=== PATIENT | female | born 2005 | race Caucasian/White ===

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

== ENCOUNTER → 2025-03-17 | Outpatient (CLI) | payer MEDICAID, SELFPAY ==
--- OUTSIDE RECORDS SUMMARY | 2025-03-17 08:45 | XMS RPT_ITS | CCD ---
Author Organization [facility] Care Team Providers Care Road Sign Installer Name Role Phone Breanna Rodrigues MD Primary Care Provider [phone] BREANNA RODRIGUES Primary Care Unavailable CAROLINA JORDAN Referring Unavailable Breanna Rodrigues MD Primary Care Provider Bradly Denton Attending Unavailable Damien Patel Primary Care Unavailable Dash Vazquez Attending Unavailable Damien Patel Primary Care Unavailable Damien Patel Primary Care Unavailable Mark Scott Attending Unavailable Cooper RHEOSTAT ASSEMBLER.Hugo WILL Primary Care Provider HUGO ARIAS Primary Care Unavailable HUGO ARIAS Primary Care Unavailable HUGO ARIAS Primary Care Unavailable BRIANDA BLOCK Attending Unavailable BRIANDA BLOCK Referring Unavailable HUGO ARIAS Primary Care Unavailable BRIANDA BLOCK Attending Unavailable HUGO ARIAS Primary Care Unavailable CAROLINA JORDAN Attending Unavailable CAROLINA JORDAN Referring Unavailable ROSALINA BYRD Attending Unavailable BREANNA RODRIGUES Primary Care Unavailable CAROLINA JORDAN Attending Unavailable BREANNA RODRIGUES Primary Care Unavailable BREANNA RODRIGUES Primary Care Unavailable MARK SHEEHAN Attending Unavailable MARK SHEEHAN Referring Unavailable BREANNA RODRIGUES Primary Care Unavailable TYLER APARICIO Admitting Unavailable TYLER APARICIO Attending Unavailable HUGO ARIAS Primary Care Unavailable Medications Current Medications Medication Drug Class(es) Dates Sig (Normalized) Sig (Original) amoxicillin 875 mg / clavulanate 125 mg oral tablet (1 source) Penicillin-class Antibacterial Start: 06-15-2023 take 1 tablet by mouth twice daily Amoxicillin-Pot Clavulanate Active 1 TABLET PO TWICE A DAY June 15, 2023 12:00am 12 hr cetirizine hydrochloride 5 mg / pseudoephedrine hydrochloride 120 mg extended release oral tablet (1 source) alpha-Adrenergic Agonist, Histamine-1 Receptor Antagonist Start: 09-21-2024 End: 09-26-2024 take 1 tablet by mouth twice daily cetirizine-pseud oephedrine (ZYRTEC-D) 5-120 mg per tablet Take 1 tablet by mouth two times a day for 5 days. 10 tablet 09/21/2024 09/26/2024 Active ferrous sulfate 325 mg oral tablet (20 sources) Start: 12-07-2023 take 1 tablet by mouth once daily at breakfast ferrous sulfate 325 mg (65 mg iron) tablet Indications: Iron deficiency Take 1 tablet by mouth daily with breakfast. 30 tablet 2 12/07/2023 Active Start: 09-11-2022 End: 12-08-2022 take 1 tablet by mouth once daily at breakfast ferrous sulfate 325 mg (65 mg iron) tablet Indications: Iron deficiency TAKE 1 TABLET BY MOUTH EVERY DAY WITH BREAKFAST 30 tablet 2 12/08/2022 Active Start: 06-05-2022 End: 09-03-2022 take 1 tablet by mouth once daily at breakfast ferrous sulfate 325 mg (65 mg iron) tablet Indications: Iron deficiency Take 1 tablet by mouth daily with breakfast. 30 tablet 2 06/05/2022 09/03/2022 Active End: 09-11-2022 ferrous sulfate 325 mg (65 m g iron) tablet Take 325 mg by mouth. 0 09/11/2022 Discontinued Comment on above: Take 1 tablet by joshua th daily with breakfast. Take 325 mg by mouth . TAKE 1 TABLET BY JOSHUA TH EVERY DAY WITH BREAKFAST fluconazole 200 mg oral tablet (1 source) Azole Antifungal Start: 02-04-20 End: 02-18-20 take 1 tablet by mouth once daily fluconazole (DIFLUCAN) 200 mg tablet Take 1 tablet by mouth once daily for 14 days. 14 tablet 0 02/04/2024 02/18/2024 Active fluticasone propionate 0.05 mg/actuat metered dose nasal spray (3 sources) Corticosteroid Start: 09-21-20 take 2 spray(s) by mouth once daily fluticasone (FLONASE) 50 mcg/actuation nasal spray Use 2 Sprays in each nostril once daily. Rinse mouth after use. 1 Each 09/21/2024 Active polymyxin b 34962 unt/ml / trimethoprim 1 mg/ml ophthalmic solution (1 source) Dihydrofolate Reductase Inhibitor Antibacterial, Polymyxin-class Antibacterial Start: 11-17-19 End: 11-24-19 take 1 drop(s) into the eye(s) every four hours polymyxin B-trimethoprim (POLYTRIM) 10,000 unit- 1 mg/mL ophthalmic solution Use 1 Drop in the left eye every 4 hours for 7 days. 10 mL 11/17/2024 11/24/2024 Active Completed/Discontinued Medications Medication Drug Class(es) Dates Sig (Normalized) Sig (Original) albuterol 0.83 mg/ml inhalation solution (5 sources) beta2-Adrenergi c Agonist Start: 10-16-2021 End: 06-12-2022 take 2.5 mg by inhalation every four hours as needed albuterol (PROVENTIL) 2.5 mg /3 mL (0.083 %) nebulizer solution Use 3 mL via nebulizer every 4 hours as needed (cough/wheezing/shor tness of breath). 150 mL 2 10/16/2021 06/12/2022 Discontinued Comment on above: Use 3 mL via nebuliz er every 4 hours as needed (cough/wheezing/shortness of breath). cyproheptadine hydrochloride 4 mg oral tablet (6 sources) Start: 06-03-2023 take 1 tablet by mouth once daily at bedtime cyproheptadine (PERIACTIN) 4 mg tablet TAKE 1 TABLET BY MOUTH EVERYDAY AT BEDTIME 30 tablet 3 06/03/2023 Active Start: 01-09-2023 take 1 tablet by joshua th once daily at bedtime cyproheptadine (PERIACTIN) 4 mg tablet Take 1 tablet by mouth daily at bedtime. 30 tablet 3 01/09/2023 Active Comment on above: Take 1 tablet by joshua th daily at bedtime. TAKE 1 TABLET BY JOSHUA TH EVERYDAY AT BEDTIME dicyclomine hydrochloride 10 mg oral capsule (11 sources) Anticholinergic Start: 12-03-19 End: 07-06-20 take 1 capsule by mouth every six hours as needed for pain dicyclomine (BENTYL) 10 mg capsule TAKE 1 CAPSULE BY MOUTH EVERY 6 HOURS NEEDED FOR ABDOMINAL PAIN 120 capsule 1 04/28/2024 07/06/2024 Discontinued Start: 02-18-2023 End: 03-20-2023 take 1 tablet by mouth three times daily dicyclomine (BENTYL) 20 mg tablet Take 1 tablet by mouth three times daily. 90 tablet 0 02/18/2023 03/20/2023 Active Comment on above: Take 1 tablet by joshua th three times daily. Take 1 capsule by mo uth every 6 hours as needed. TAKE 1 CAPSULE BY MO UTH EVERY 6 HOURS NEEDED drospirenone / Ethinyl Estradiol (20 sources) Progestin, Estrogen Start: 2 End: 4 take 1 tablet by mouth once daily, then take 1 tablet by mouth once Drospirenone-Ethinyl Estradiol (TISHA, 28,) 3-0.03 mg per tablet Indications: Dysmenorrhea , Acne vulgaris , Surveillance for control, oral contraceptives Take 1 tablet by mouth once daily. FOR CONTINUOUS USE - TAKE ONLY ACTIVE PILLS FOR 12 WEEKS AND THEN TAKE ONE WEEK OF PLACEBO PILLS. 112 tablet 4 09/09/2022 07/21/2024 Discontinued Start: 09-09-2022 take 1 tablet by joshua th once daily, then take 1 tablet by mouth once Drospirenone-Ethinyl Estradiol (TISHA, 28,) 3-0.03 mg per tablet Indications: Dysmenorrhea , Acne vulgaris , Surveillance for control, oral contraceptives Take 1 tablet by mouth once daily. FOR CONTINUOUS USE - TAKE ONLY ACTIVE PILLS FOR 12 WEEKS AND THEN TAKE ONE WEEK OF PLACEBO PILLS. 112 tablet 4 09/09/2022 Active Comment on above: Take 1 tablet by joshua once daily. FOR CONTINUOUS USE - TAKE ONLY ACTIVE PILLS FOR 12 WEEKS AND THEN TAKE ONE WEEK OF PLACEBO PILLS. esomeprazole 20 mg delayed release oral capsule (12 sources) Proton Pump Inhibitor Start: 3 End: 4 esomeprazole (NEXIUM) 20 mg capsule Take by mouth. 11/12/2022 07/06/2024 Discontinued Comment on above: Take 1 capsule by mo uth once daily. Ethinyl Estradiol / norgestimate (5 sources) Progestin, Estrogen Start: 2 End: 2 take 1 tablet by mouth once daily norgestimate 0.25 mg-ethinyl estradiol 35 mcg (SPRINTEC) 0.25-35 mg-mcg per tablet Indications: Surveillance for control, oral contraceptives Take 1 tablet by mouth once daily. 84 tablet 4 01/03/2022 06/12/2022 Discontinued Start: 01-03-2022 take 1 tablet by joshua th once daily norgestimate 0.25 mg-ethinyl estradiol 35 mcg (SPRINTEC) 0.25-35 mg-mcg per tablet Indications: Surveillance for control, oral contraceptives Take 1 tablet by mouth once daily. 84 tablet 4 01/03/2022 Active Comment on above: Take 1 tablet by joshua once daily. etonogestrel 68 mg drug implant (6 sources) Progestin Start: 07-21-2024 End: 07-21-2024 68 mg, SUBDERMAL, ONCE (UP TO 30 DAYS AMB), 1 dose, On [place] 07/21/24 at 1530, Hazardous Potential Reproductive Risk Drug: Use appropriate PPE. Must be inserted subdermally in the upper arm by a trained healthcare provider. Start: 07-21-2024 End: 07-21-2024 etonogestrel subdermal impla nt 68 mg (NEXPLANON) Start: 07-21-2024 End: 07-21-2027 etonogestrel (NEXPLANON) sub dermal implant 68 mg Indications: Insertion of implantable subdermal contraceptive 1 Each by SUBDERMAL route as directed. 1 Each 07/21/2024 07/21/2027 Active famotidine 20 mg oral tablet (2 sources) Histamine-2 Receptor Antagonist Start: 09-29-2023 End: 12-28-2023 take 1 tablet by mouth twice daily famotidine (PEPCID) 20 mg tablet Take 1 tablet by mouth two times a day. 60 tablet 2 09/29/2023 12/03/2023 Discontinued Comment on above: Take 1 tablet by joshua th two times a day. 12 hr hyoscyamine sulfate 0.375 mg extended release oral tablet (8 sources) Start: 01-01-2023 End: 01-31-2023 take 0.375 mg by mouth every twelve hours as needed hyoscyamine SR (LEVBID) 0.375 mg 12 hr tablet Take 1 tablet by mouth every 12 hours as needed. 60 tablet 2 01/01/2023 Active Comment on above: Take 1 tablet by joshua every 12 hours as needed. rizatriptan 10 mg disintegrating oral tablet (3 sources) Serotonin-1b and Serotonin-1d Receptor Agonist Start: 06-10-2022 End: 06-28-2022 rizatriptan ([employer] SAMPLER) 10 mg disintegrating tablet 1 tablet by mouth today and repeat a second dose in 2 hours. May dose again on 06/11/2022 if needed. 6 tablet 0 06/10/2022 06/28/2022 Discontinued Comment on above: 1 tablet by mouth to day and repeat a second dose in 2 hours. May dose again on 06/11/2022 if needed. Problems Active Problems Problem Classification Problem Date Documented Date Episodic/Chronic Asthma (20 sources) Mild intermittent asthma; Translations: [Mild intermittent asthma, uncomplicated] Onset: 06-15-2018 06-15-2018 Chronic Coagulation and hemorrhagic disorders (1 source) Easy bruising; Translations: [Spontaneous ecchymoses] Episodic Conditions associated with dizziness or vertigo (2 sources) Dizziness; Translations: [Dizziness and giddiness] Episodic Contraceptive and procreative management (1 source) Oral contraception; Translations: [Encounter for surveillance of contraceptive pills] Episodic Headache; including migraine (2 sources) Headache disorder; Translations: [Headache disorder] Episodic Immunizations and screening for infectious disease (4 sources) Patient encounter status; Translations: [Encounter for immunization] Episodic Malaise and fatigue (1 source) Malaise and fatigue; Translations: [Other malaise] Episodic Menstrual disorders (2 sources) Dysmenorrhea; Translations: [Dysmenorrhea, unspecified] Chronic Nonspecific chest pain (1 source) Chest pain; Translations: [Chest pain, unspecified] Episodic Nutritional deficiencies (3 sources) Iron deficiency; Translations: [Iron deficiency] Episodic Other ear and sense organ disorders (1 source) Bilateral earache; Translations: [Otalgia, bilateral] 09-21-2024 Episodic Other ear and sense organ disorders (1 source) Hearing loss of right ear; Translations: [Impacted cerumen, right ear] 10-13-2024 Episodic Other eye disorders (1 source) Disorder of eye; Translations: [Other specified disorders of eye and adnexa] 11-17-2024 Episodic Other nutritional; endocrine; and metabolic disorders (2 sources) Abnormal weight loss; Translations: [Abnormal weight loss] 12-03-2023 Episodic Other screening for suspected conditions (not mental disorders or infectious disease) (2 sources) Ferritin level low; Translations: [Abnormal level of blood mineral] Episodic Other skin disorders (2 sources) Acne vulgaris; Translations: [Acne vulgaris] Episodic Other upper respiratory infections (1 source) Sore throat symptom; Translations: [Acute pharyngitis, unspecified] 09-21-2024 Episodic Residual codes; unclassified (1 source) History of bradycardia; Translations: [Personal history of other specified conditions] Episodic Residual codes; unclassified (1 source) Family history of conduction disorder of the heart; Translations: [Family history of ischemic heart disease and other diseases of the circulatory system] 11-24-2023 Episodic Viral infection (1 source) Viral disease; Translations: [Viral infection, unspecified] 10-13-2024 Episodic Past or Other Problems Problem Classification Problem Date Documented Da te Episodic/Chronic Abdominal pain (20 sources) Abdominal pain; Translations: [Unspecified abdominal pain] Onset: 07-23-2018 11-12-2022 Episodic E Codes: Natural/environment (8 sources) Dog bite - wound; Translations: [Bitten by dog, initial encounter] Onset: 02-04-2024 06-15-2023 Episodic Gastritis and duodenitis (20 sources) Gastritis; Translations: [Gastritis, unspecified, without bleeding] Onset: 01-01-2023 11-12-2022 Episodic Nausea and vomiting (2 sources) Nausea; Translations: [Nausea] Onset: 02-04-2024 02-03-2024 Episodic Other gastrointestinal disorders (7 sources) Constipation; Translations: [Constipation, unspecified] Onset: 07-23-2018 02-04-2024 Episodic Other nutritional; endocrine; and metabolic disorders (2 sources) Abnormal weight loss; Translations: [Abnormal weight loss] Onset: 11-26-2023 Episodic Residual codes; unclassified (1 source) Early satiety; Translations: [Early satiety] Onset: 11-26-2023 Episodic Syncope (14 sources) Syncope; Translations: [Syncope and collapse] Onset: 06-22-2023 Episodic Results Test Name Value Interpretation Reference Range Facility CNOVon 11-17-2024 CNOV Office Visit ([facility] ) JULIAN WHITNEY ([id number]) 5 F Date Time Provider Department 11/17/24 1:15 PM AVANI TATE [facility] During your visit today, we recorded the following information about you: Temperature Pulse Respiration Blood pressure 97.6 degrees 96/minute 18/minute 108/71 Weight 65 kg Avani Tate PA 11/17/2024 1:26 PM Signed This note was created using [employer]. Subjective Julian Whitney is a 19 year old female. HPI 19-year-old female presents for left eye redness x 2 days. Patient states for the past 2 days when she wakes up in the morning, her left eye is red. She states that she had a little bit of crusting in the corner of her eye this morning, but she cleaned that out has not had any drainage from the eye since. She has a little bit of itching occasionally of the eye. No pain in the eye. No vision changes. She does wear glasses, no contacts. No cough, congestion or URI symptoms. Patient was watching her nephew the past 2 days and he has pinkeye. PAST MEDICAL HISTORY Diagnosis Date Anemia, unspecified Dysmenorrhea NEGATIVE MEDICAL HISTORY normal color vision PAST SURGICAL HISTORY Procedure Laterality Date NEXPLANON INSERTION Left 07/21/2024 3 [address]Y [address] AD[address]OIDECTOMY Dr Stiven Fuller ALLERGIES Patient has no known allergies. MEDICATIONS etonogestrel (NEXPLANON) subdermal implant 68 mg 1 Each by SUBDERMAL route as directed. ferrous sulfate 325 mg (65 mg iron) tablet Take 1 tablet by mouth daily with breakfast. polymyxin B-trimethoprim (POLYTRIM) 10,000 unit- 1 mg/mL ophthalmic solution Use 1 Drop in the left eye every 4 hours for 7 days. fluticasone (FLONASE) 50 mcg/actuation nasal spray Use 2 Sprays in each nostril once daily. Rinse mouth after use. (Patient not taking: Reported on 10/13/2024) FAMILY HISTORY Problem Relation Age of Onset No Known Problems Mother Diabetes Father Macular Degen Father Heart Sister WPW Diabetes Maternal Grandmother Heart Maternal Grandfather 54 [place]; arrthymia Hypertension Maternal Grandfather Celiac Disease No Family History Inflammatory Bowel Disease No Family History Thyroid No Family History Social History Tobacco Use Smoking status: Never Passive exposure: Never Smokeless tobacco: Current Tobacco comments: Uses a Vape Vaping Use Vaping status: Never Used Substance Use Topics Alcohol use: Yes Comment: Rare but does drink Drug use: No Review of Systems Constitutional: Negative for chills and fever. HENT: Negative for congestion, ear pain and sore throat. Eyes: Positive for discharge (crusitng in AM), redness and itching. Negative for photophobia, pain and visual disturbance. Respiratory: Negative for cough and shortness of breath. Cardiovascular: Negative for chest pain. Gastrointestinal: Negative for diarrhea and vomiting. Objective BP 108/71 Pulse 96 Temp 36.4 ?C (97.6 ?F) Resp 18 Wt 65 kg (143 lb 4.8 oz) LMP 07/07/2024 (Exact Date) SpO2 100% Physical Exam Vitals and nursing note reviewed. Constitutional: General: She is not in acute distress. Appearance: Normal appearance. She is not toxic-appearing. HENT: Right Ear: Tympanic membrane and ear canal normal. Left Ear: Tympanic membrane and ear canal normal. Nose: Nose normal. Mouth/Throat: Mouth: Mucous membranes are moist. Eyes: General: Vision grossly intact. Right eye: No discharge. Left eye: No discharge. Extraocular Movements: Extraocular movements intact. Conjunctiva/sclera: Conjunctivae normal. Comments: Eye exam normal. No crusting, drainage, swelling. Vision intact. Cardiovascular: Rate and Rhythm: Normal rate and regular rhythm. Pulmonary: Effort: Pulmonary effort is normal. Breath sounds: Normal breath sounds. Skin: General: Skin is warm and dry. Neurological: Mental Status: She is alert. Assessment and Plan ASSESSMENT/PLAN: 1. Eye irritation - ICD9: 379.99, ICD10: H57.89 -Normal exam. Patient reports some redness and crusting in the a.m. Patient states her nephew does have bacterial conjunctivitis and she has been watching him the past 2 days. -Possible early symptoms of conjunctivitis, if drainage/redness worsens, Rx for Polytrim given, may use this as prescribed Diagnosis and treatment plan were discussed and questions were answered to the patient's satisfaction. Pt acknowledged understanding of concepts and follow up plan. Specific signs and symptoms that would indicate the need for higher level of care were discussed in detail warranting prompt ER evaluation. RELL Dangelo Allergies As of Date: 11/17/2024 (No Known Allergies) Date Reviewed: 11/17/2024 Reviewed by: Shanita Hernandez MA - Fully Assessed Reason for Visit: Conjunctivitis [24] Cmt: L eye x2 days Primary Visit Diagnosis:Eye irritation [H57. (more content not included)... Normal [facility] CNOVon 10-13-2024 CNOV Office Visit ([facility] ) JULIAN WHITNEY ([id number]) 5 F Date Time Provider Department 10/13/24 1:30 PM CAMACHO SCOTT [facility] During your visit today, we recorded the following information about you: Temperature Pulse Respiration Blood pressure 97.2 degrees 83/minute 18/minute 110/76 Weight 64.1 kg Camacho Scott APRN.DIGITAL SPECIALIST 10/13/2024 6:24 PM Signed Subjective HPI Nontoxic-appearing 19-year-old female presents to urgent care with chief complaint of upper respiratory tract like infection. Duration of symptoms 4 days. Associated symptoms sore throat, nasal congestion, nasal discharge and nonproductive cough. Patient denies the use of any [id number] medications or home remedies for symptom management. Patient states recent sick contacts with similar signs and symptoms. Patient denies any productive cough, fever, chest pain, shortness of breath, pleuritic pain, rash, abdominal pain, nausea, vomiting or change in bowel or bladder habit. .Patient presents with: Cough: ST, bilateral ear pain, hoarse voice x4 days PAST MEDICAL HISTORY Diagnosis Date - Anemia, unspecified - Dysmenorrhea - NEGATIVE MEDICAL HISTORY normal color vision PAST SURGICAL HISTORY Procedure Laterality Date - NEXPLANON INSERTION Left 07/21/2024 3 year - TONSILLECTOMY AND ADENOIDECTOMY Dr Stiven Fuller ALLERGIES Patient has no known allergies. MEDICATIONS - etonogestrel (NEXPLANON) subdermal implant 68 mg 1 Each by SUBDERMAL route as directed. - ferrous sulfate 325 mg (65 mg iron) tablet Take 1 tablet by mouth daily with breakfast. - fluticasone (FLONASE) 50 mcg/actuation nasal spray Use 2 Sprays in each nostril once daily. Rinse mouth after use. (Patient not taking: Reported on 10/13/2024) FAMILY HISTORY Problem Relation Age of Onset - No Known Problems Mother - Diabetes Father - Macular Degen Father - Heart Sister WPW - Diabetes Maternal Grandmother - Heart Maternal Grandfather 54 [place]; arrthymia - Hypertension Maternal Grandfather - Celiac Disease No Family History - Inflammatory Bowel Disease No Family History - Thyroid No Family History Social History Tobacco Use - Smoking status: Never Passive exposure: Never - Smokeless tobacco: Current - Tobacco comments: Uses a Vape Vaping Use - Vaping status: Never Used Substance Use Topics - Alcohol use: Yes Comment: Rare but does drink - Drug use: No BP 110/76 Pulse 83 Temp 36.2 ?C (97.2 ?F) Resp 18 Wt 64.1 kg (141 lb 5 oz) LMP 07/07/2024 (Exact Date) SpO2 100% Review of Systems Constitutional: Positive for malaise/fatigue. Negative for chills and fever. HENT: Positive for congestion, ear pain and sore throat. Negative for ear discharge and sinus pain. Eyes: Negative for blurred vision, pain, discharge and redness. Respiratory: Positive for cough. Negative for hemoptysis, sputum production, shortness of breath, wheezing and stridor. Cardiovascular: Negative for chest pain. Gastrointestinal: Negative for abdominal pain, diarrhea, nausea and vomiting. Musculoskeletal: Positive for myalgias. Skin: Negative for itching and rash. Neurological: Positive for headaches. Negative for dizziness. Objective Physical Exam Constitutional: General: She is not in acute distress. Appearance: She is not diaphoretic. HENT: Head: Normocephalic. Jaw: No trismus, tenderness, swelling or pain on movement. Right Ear: External ear normal. Left Ear: Tympanic membrane, ear canal and external ear normal. Nose: Congestion present. Mouth/Throat: Mouth: Mucous membranes are moist. Pharynx: Oropharynx is clear. Uvula midline. Posterior oropharyngeal erythema present. No pharyngeal swelling, oropharyngeal exudate or uvula swelling. Eyes: Conjunctiva/sclera: Conjunctivae normal. Pupils: Pupils are equal, round, and reactive to light. Cardiovascular: Rate and Rhythm: Normal rate and regular rhythm. Heart sounds: Normal heart sounds. Pulmonary: Effort: Pulmonary effort is normal. No tachypnea, accessory muscle usage or respiratory distress. Breath sounds: Normal breath sounds. No stridor. No wheezing, rhonchi or rales. Abdominal: General: There is no distension. Palpations: Abdomen is soft. Tenderness: There is no abdominal tenderness. There is no guarding or rebound. Musculoskeletal: Cervical back: Normal range of motion and neck supple. No edema, erythema, rigidity or tenderness. No pain with movement. Normal range of motion. Lymphadenopathy: Cervical: No cervical adenopathy. Skin: General: Skin is warm and dry. Neurological: Mental Status: She is alert and oriented to person, place, and time. Moderate amount of cerumen noted right auditory canal. Post irrigation TM pearly bowling and intact bilaterally. Irrigation performed by MANAGER REVIEW. Patient tolerated well. ASSESSMENT/DOREEN (more content not included)... Normal [facility] STREP A MOLECULAR (POC)on Procedural Control Valid [facility] Strep A (POCT) Negative Negative [facility] CNOVon 09-21-2024 CNOV Office Visit ([facility] ) JULIAN WHITNEY ([id number]) 5 F Date Time Provider Department 09/21/24 1:45 PM EDITH BERGERON [facility] During your visit today, we recorded the following information about you: Temperature Pulse Respiration Blood pressure 97.7 degrees 98/minute 16/minute 102/68 Weight 63.4 kg Edith Bergeron PA-C 09/21/2024 2:09 PM Signed This note was created using [employer]. Subjective Julian Whitney is a 19 year old female. HPI Presents with a chief complaint of ears feeling clogged and a sore throat over the past 2 or 3 days. No fever. Denies cough. Some mild congestion. No diarrhea or vomiting. No decreased hearing. No drainage from her ears. Denies sick contacts. Review of Systems Constitutional: Negative. HENT: Positive for congestion, ear pain and sore throat. Negative for ear discharge, sinus pressure and sinus pain. Respiratory: Negative for cough, shortness of breath and wheezing. All other systems reviewed and are negative. PAST MEDICAL HISTORY Diagnosis Date Anemia, unspecified Dysmenorrhea NEGATIVE MEDICAL HISTORY normal color vision Current Outpatient Medications Medication Sig Dispense Refill etonogestrel (NEXPLANON) subdermal implant 68 mg 1 Each by SUBDERMAL route as directed. 1 Each 0 ferrous sulfate 325 mg (65 mg iron) tablet Take 1 tablet by mouth daily with breakfast. 30 tablet 2 fluticasone (FLONASE) 50 mcg/actuation nasal spray Use 2 Sprays in each nostril once daily. Rinse mouth after use. 1 Each 0 cetirizine-pseudoephe drine (ZYRTEC-D) 5-120 mg per tablet Take 1 tablet by mouth two times a day for 5 days. 10 tablet 0 No current facility-administered medications for this visit. PAST SURGICAL HISTORY Procedure Laterality Date NEXPLANON INSERTION Left 07/21/2024 3 [address] AD[address]Y Dr Stiven Fuller FAMILY HISTORY Problem Relation Age of Onset No Known Problems Mother Diabetes Father Macular Degen Father Heart Sister WPW Diabetes Maternal Grandmother Heart Maternal Grandfather 54 [place]; arrthymia Hypertension Maternal Grandfather Celiac Disease No Family History Inflammatory Bowel Disease No Family History Thyroid No Family History Social History Tobacco Use Smoking status: Never Passive exposure: Never Smokeless tobacco: Current Tobacco comments: Uses a Vape Vaping Use Vaping status: Never Used Substance Use Topics Alcohol use: Yes Comment: Rare but does drink Drug use: No Objective BP 102/68 Pulse 98 Temp 36.5 ?C (97.7 ?F) Resp 16 Wt 63.4 kg (139 lb 12.4 oz) LMP 07/07/2024 (Exact Date) SpO2 99% Physical Exam Vitals reviewed. Constitutional: Appearance: Normal appearance. HENT: Head: Normocephalic and atraumatic. Right Ear: Tympanic membrane, ear canal and external ear normal. Left Ear: Tympanic membrane, ear canal and external ear normal. Nose: Nose normal. Mouth/Throat: Mouth: Mucous membranes are moist. Pharynx: Oropharynx is clear. Cardiovascular: Rate and Rhythm: Normal rate and regular rhythm. Heart sounds: Normal heart sounds. Pulmonary: Effort: Pulmonary effort is normal. Breath sounds: Normal breath sounds. Musculoskeletal: Cervical back: Neck supple. Lymphadenopathy: Cervical: No cervical adenopathy. Skin: General: Skin is warm and dry. Findings: No rash. Neurological: Mental Status: She is alert. Assessment and Plan ASSESSMENT/PLAN: 1. Sore throat - ICD9: 462, ICD10: J02.9 (primary diagnosis) - suspect viral - Group A strep molecular testing negative - Discussed supportive care treatment with fluids, rest and analgesia. - The patient should follow up in 3-5 days if symptoms persist or worsen - STREP A MOLECULAR (POC) 2. Otalgia of both ears - ICD9: 388.70, ICD10: H92.03 Likely eustachian tube dysfunction. Recommend Flonase and Zyrtec-D which was sent as Rx. Follow-up with PCP if not improving. SHEA SalterC Allergies As of Date: 09/21/2024 (No Known Allergies) Date Reviewed: 09/21/2024 Reviewed by: Janette Soliz MA - Fully Assessed Reason for Visit: Sore Throat [200] Cmt: ear pressure x 3 days off and on, sore throat x 1 day Primary Visit Diagnosis:Sore throat [J02.9] Other Visit Diagnosis:Otalgia of both ears [H92.03] Order(s):STREP A MOLECULAR (POC) [0823877] Order #: [id number]. #:[id number] fluticasone (FLONASE) 50 mcg/actuation nasal sprayUse 2 Sprays in each nostril once daily. Rinse mouth after use.Disp: 1 EachRfl: 0 cetirizine-pseudoephe drine (ZYRTEC-D) 5-120 mg per tabletTake 1 tablet by mouth two times a day for 5 days.Disp: 10 tabletRfl: 0 Prescriptions as of 09/21/2024 - fluticasone (FLONASE) 50 mcg/actuation nasal spray Use 2 Sprays in each nostril once daily. Rinse mouth after use. - cetirizine-pseudoephe drine (ZYRTEC-D) 5-120 mg per tablet (more content not included)... Normal [facility] STREP A MOLECULAR (POC)on Procedural Control Valid [facility] Strep A (POCT) Negative Negative [facility] CNOVon 07-21-2024 CNOV Office Visit (OBGYWM ) JULIAN WHITNEY ([id number]) 5 F Date Time Provider Department 07/21/24 2:30 PM BRIANDA BLOCK During your visit today, we recorded the following information about you: Blood pressure Weight Last Period 96/54 61.7 kg 07/07/24 Brianda Block APRN.DIGITAL SPECIALIST 07/21/2024 7:02 PM Signed Julian is a 19 year old patient who presents for Nexplanon insertion. Patient's last menstrual period was 07/07/2024 (exact date). VITALS: BP 110/58 Wt 136 lb (61.7kg) LMP 07/07/2024 Accompanied by grandmother test: negative Nexplanon lot #: [id number] Exp date: 08/11/2026 UNIVERSAL PROTOCOL / SAFETY CHECKLIST Procedure to be Performed: Nexplanon insertion Sign In: A Moment of CARE was completed. Personnel directly involved with the procedure wore the appropriate PPE (Personal Protective Equipment). Patient/Surrogate Stated/Verified: PATIENT VERIFIED(optional for EMERGENT procedures): Patient name, Date of , Relevant allergies, and The intended procedure Time Out Communication: Intended patient and procedure match the source documents. Consent documented and matches the intended procedure. Relevant labs, photos, and/or imaging studies have been reviewed. Correct side/site marked and visible. Medications required for procedure verified. Implant(s) inserted: Correct implant(s) confirmed including size and side. and Expiration date(s) reviewed. Sign Out: SIGN OUT (optional for EMERGENT procedures): No specimen collected. All instruments, equipment, possible retained foreign bodies accounted for. Post-procedure follow-up management communicated and Plan of Care Visit completed when applicable. Brianda Block CNP TECHNIQUE: Patient placed in supine position with left) bent at the elbow and placed over the head. Skin cleansed with betadine. 2mL of 1% lidocaine injected subQ along insertion site. Nexplanon marian inserted under sterile technique. After insertion by the provider, the marian was palpable under the skin by provider. Patient declined to palpate. Steristrips and sterile pressure dressing applied. AANDP: Nexplanon inserted without complications. Patient user card was filled out and given to the patient. The patient was instructed to remove the dressing after 24 hours. Advised to use backup contraception for 7 days. Brianda Block APRN.[place] 07/21/2024 2:25 PM Signed NEXPLANON PATIENT EDUCATION You may remove dressing in 24 hours. Expect some bruising around insertion site. You may take over the counter pain medication (i.e. Tylenol, motrin, advil, etc) if you have discomfort. Call your provider with excessive bruising or pain. Continue to use condoms for STD prevention. You should use backup contraception for 7 days to prevent . Referring Provider: BRIANDA LBOCK [[id number]] Allergies As of Date: 07/21/2024 (No Known Allergies) Date Reviewed: 07/21/2024 Reviewed by: Brianda Block APRN.DIGITAL SPECIALIST - Fully Assessed Reason for Visit: nexplanon insertion [Other] Primary Visit Diagnosis:Insertion of implantable subdermal contraceptive [Z30.017] Order(s):NEXPLANON INSERTION [[id number]] Order #: [id number] [] etonogestrel subdermal implant 68 mg (NEXPLANON)Disp: Rfl: etonogestrel (NEXPLANON) subdermal implant 68 mg1 Each by SUBDERMAL route as directed.Disp: 1 EachRfl: 0 UA DIP,URINE HCG (POC) [[id number]] Order #: [id number]. #:[id number] Prescriptions as of 07/21/2024 - etonogestrel (NEXPLANON) subdermal implant 68 mg 1 Each by SUBDERMAL route as directed. - ferrous sulfate 325 mg (65 mg iron) tablet Take 1 tablet by mouth daily with breakfast. Problem List As Of Date 07/21/2024 Noted Resolved Mild intermittent asthma [J45.20] 06/15/2018 Constipation [K59.00] 07/23/2018 Gastritis [K29.70] 01/01/2023 Dog bite [W54.0XXA] 02/04/2024 Diagnosed: 02/04/2024 Syncope [R55] 06/22/2023 Diagnosed: 02/04/2024 Other instructions from your clinician: NEXPLANON PATIENT EDUCATION You may remove dressing in 24 hours. Expect some bruising around insertion site. You may take over the counter pain medication (i.e. Tylenol, motrin, advil, etc) if you have discomfort. Call your provider with excessive bruising or pain. Continue to use condoms for STD prevention. You should use backup contraception for 7 days to prevent . Prescriptions ordered this encounter Disp Refills Start End ETONOGESTREL 68 MG SUBDERMAL IMPLANT 07/21/2024 07/21/2024 Route: SDRM ETONOGESTREL 68 MG SUBDERMAL IMPLANT 1 Ea* 0 07/21/2024 07/21/2027 Class: In Office Route: SDRM Si Each by SUBDERMAL route as directed. Medications Discontinued During This Encounter Prescriptions - Drospirenone-Ethinyl Estradiol (TISHA, 28,) 3-0.03 mg per tablet (Discontinued) Reported on 07/06/2024 (more content not included)... Normal [facility] UA DIP,URINE HCG (POC)on Beta HCG ( test) Ql (U) Negative Negative [facility] Comment on above: Location:[facility], [address] , [place], [address] Evaporator Supervisor (POCT) Internal QC OK [facility] Location:[facility], [address], [place], [address] [facility] POINT OF CARE [facility] CNOVon 07-06-2024 CNOV Office Visit (OBGYWM ) JOANN WHITNEYGt Amanda ([id number]) 5 F Date Time Provider Department 07/06/24 3:30 PM BRIANDA BLOCK During your visit today, we recorded the following information about you: Blood pressure Weight Last Period 110/56 63.3 kg 06/15/24 Brianda Block APRN.DIGITAL SPECIALIST 07/06/2024 6:15 PM Signed Julian Patel Chelo is a 19 year old female who presents for problem visit painful menstrual cramping without MADELINE. Accompanied by mother. HPI: Stopped continuous MADELINE almost a year ago because she was missing 4-5 pills in a row and then she would remember to take it for a couple of weeks and then miss again. Missed pills resulted in spotting and cramping. Would like to consider a different form of contraception. Was also taking MADELINE for acne. Technical Solutions Engineer prescribed spironolactone but she has not started yet because she wanted to have this appointment first. Is sexually active with one male partner of 1.5 years, condoms for contraception. OB History T0 L0 SAB0 IAB0 Ectopic0 Multiple0 Live Births0 Inspector Conveyor Line History LMP: 06/15/2024 (Exact Date), Having periods Age at Menarche: Age at First : Age at Menopause: Inspector Conveyor Line History Comments: Sexual Activity: Yes; Male Contraception: Condom PAST MEDICAL HISTORY Diagnosis Date Anemia, unspecified Dysmenorrhea NEGATIVE MEDICAL HISTORY normal color vision PAST SURGICAL HISTORY Procedure Laterality Date TONSILLECTOMY AND ADENOIDECTOMY Dr Stiven Fuller FAMILY HISTORY Problem Relation Age of Onset No Known Problems Mother Diabetes Father Macular Degen Father Heart Sister WPW Diabetes Maternal Grandmother Heart Maternal Grandfather 54 [place]; arrthymia Hypertension Maternal Grandfather Celiac Disease No Family History Inflammatory Bowel Disease No Family History Thyroid No Family History Social History Tobacco Use Smoking status: Never Passive exposure: Never Smokeless tobacco: Current Tobacco comments: Uses a Vape Vaping Use Vaping status: Never Used Substance Use Topics Alcohol use: Yes Comment: Rare but does drink Drug use: No Current Outpatient Medications Medication Sig ferrous sulfate 325 mg (65 mg iron) tablet Take 1 tablet by mouth daily with breakfast. dicyclomine (BENTYL) 10 mg capsule TAKE 1 CAPSULE BY MOUTH EVERY 6 HOURS NEEDED FOR ABDOMINAL PAIN (Patient not taking: Reported on 07/06/2024) esomeprazole (NEXIUM) 20 mg capsule Take by mouth. (Patient not taking: Reported on 02/04/2024) Drospirenone-Ethinyl Estradiol (TISHA, 28,) 3-0.03 mg per tablet Take 1 tablet by mouth once daily. FOR CONTINUOUS USE - TAKE ONLY ACTIVE PILLS FOR 12 WEEKS AND THEN TAKE ONE WEEK OF PLACEBO PILLS. (Patient not taking: Reported on 07/06/2024) No current facility-administered medications for this visit. Allergies As of Date: 07/06/2024 (No Known Allergies) Fully Assessed 07/06/2024 REVIEW OF SYSTEMS Allergies and current medication updated:Yes SENSITIVE EXAM: The sensitive examination was discussed with the Patient or Patient's Authorized Photoengraving Etcher. As applicable, any other physician, advance practice provider, medical student, or other health professional student that will be observing or involved in the sensitive examination for educational or training purposes was discussed with the Patient or Authorized Photoengraving Etcher. The Patient or Authorized Photoengraving Etcher has agreed to proceed with the sensitive examination. (Sensitive examination includes inspection and/or palpation of the breasts, pelvis, prostate and anorectal regions). EXAM: BP 110/56 Wt 139 lb 9.6 oz (63.3kg) LMP 06/15/2024 GENERAL: pleasant, female in no apparent distress DERMATOLOGY: Normal with cystic acne CHEST: Normal inspiratory effort NEURO: alert and oriented x3,exam grossly non-focal ASSESSMENT/PLAN: 1. Dysmenorrhea - ICD9: 625.3, ICD10: N94.6 (primary diagnosis) - NEXPLANON INSERTION 2. General counseling and advice for contraceptive management - ICD9: V25.09, ICD10: Z30.09 - discussed contraceptive options with RBA including OCP, NuvaRing, Annovera, patch, Depo Provera, Nexplanon and IUDs. Discussed Nexplanon procedure and side effects including weight gain, unscheduled bleeding. Pt prefers Nexplanon. - NEXPLANON INSERTION 3. Acne vulgaris - ICD9: 706.1, ICD10: L70.0 - she plans to start spironolactone prescribed by pusher runner Follow-up at Nexplanon insertion - assisted in scheduling during next menses. If menses ends prior to appointment, she will abstain from sexual intercourse. Brianda Block, NELSON.DIGITAL SPECIALIST Medical Decision Making: Problems: Moderate: 1+ chronic illnesses with change Risk: Moderate: Drug management and Moderate risk from testing/treatment Medical Decision Making Level: 4 - Moderate Allergies As of Date: 07/06/2024 (No Known Allergies) Date R (more content not included)... Normal [facility] CNOVon 02-04-2024 CNOV Office Visit (PEGAMD ) JULIAN WHITNEY ([id number]) 5 F Date Time Provider Department 02/04/24 11:00 AM CAROLINA JORDAN During your visit today, we recorded the following information about you: Temperature Pulse Respiration Blood pressure 98.9 degrees 84/minute 18/minute 106/68 Weight Height Last Period 54.8 kg 1.702 m 01/14/24 Carolina Jordan MD 02/04/2024 12:39 PM Signed Referring MD: This patient was referred by Breanna Rodrigues MD for evaluation and management of Patient presents with: Post Op Chronic abdominal pain Weight loss Our recommendations will be communicated back (either as a letter or via electronic medical record delivery) to Breanna Rodrigues MD. Medications: Current Outpatient Medications Medication Sig Dispense Refill dicyclomine (BENTYL) 10 mg capsule TAKE 1 CAPSULE BY MOUTH EVERY 6 HOURS NEEDED 60 capsule 1 ferrous sulfate 325 mg (65 mg iron) tablet Take 1 tablet by mouth daily with breakfast. 30 tablet 2 Drospirenone-Ethinyl Estradiol (TISHA, 28,) 3-0.03 mg per tablet Take 1 tablet by mouth once daily. FOR CONTINUOUS USE - TAKE ONLY ACTIVE PILLS FOR 12 WEEKS AND THEN TAKE ONE WEEK OF PLACEBO PILLS. 112 tablet 4 esomeprazole (NEXIUM) 20 mg capsule Take by mouth. (Patient not taking: Reported on 02/04/2024) fluconazole (DIFLUCAN) 200 mg tablet Take 1 tablet by mouth once daily for 14 days. 14 tablet 0 No current facility-administered medications for this visit. HPI: Julian Whitney is a delightful 18 year old female being seen today in follow up on February 04, 2024 (last clinic visit was December 02, 2023) secondary to issues with chronic abdominal pain, unintentional weight loss, early satiety. The patient presents to follow up with mother who provides the history today. Background history: Updated/reviewed Julian is a healthy young woman with past medical history significant for past acetaminophen overdose but otherwise, no other underlying medical issues. Prior to her initial clinic visits, she had been assessed in the emergency room October 2022 due to escalating sharp cramping abdominal pain without radiation worse in the mornings and associated with nausea. She denied any other significant upper GI tract symptoms and was also having normal stools. There were no prior infectious prodrome preceding this, new medication use, or other new stressors/dietary changes. In addition to her gastrointestinal symptoms, she endorsed ongoing intermittent dizziness feeling hot with heart palpitations but not completely panic attacks as per her report. Laboratory evaluation by her general surgeon was quite comprehensive and within normal limits including a complete blood count, comprehensive metabolic panel, and serum inflammatory markers. We first recommended Periactin, and completion of her laboratory evaluation with fecal inflammatory markers. Summary of abdominal pain survey: Responses from December 2022 are in italics with current/confirmed unchanged answers in bold print from September 2023 Location of pain:Periumbilical Initial start of pain (date): October 2022 Quality of pain: Tight and tense --> unchanged Duration of episodes: Longer in the mornings hours; more intermittent lasting minutes; no nocturnal awakening --> still in the mornings > afternoons without nocturnal awakening (episodes in the afternoons are intermittent) Frequency: At least 3-4 times daily --> multiple times daily Exacerbating factors: Continues to endorse that no specific foods aggravate symptoms although spicy foods may have aggravated things in the past Ameliorating factors: Lying down; Nexium has not helped. Periactin also has not made an impact although she was only on it for a couple of weeks Nocturnal awakening:No Tenesmus: ? Yes --> no Blood: No Mucus: No Upper GI tract symptoms: Acid brash: No Heartburn: No Dysphagia: No Associated nausea: 2-3 weeks with NBNB emesis not necessarily associated immediately with eating; no recurrent vomiting but continues to have nausea intermittently and early satiety over the past 5 to 6 months Epigastric pain: None Given ongoing weight loss of 10 pounds between December to September of 2023, we reordered calprotectin and Hemoccult which were within normal limits. Therefore, we made the decision to proceed with upper endoscopic evaluation given her ongoing weight loss and reports of possible early satiety but held on colonoscopy given the fact that her calprotectin and Hemoccult were normal, and she was not having any issues with significant diarrhea. She underwent endoscopic evaluation with biopsies in November 2023; there was no significant mucosal inflammation or signs of since her last clinic visit, she underwent upper endoscopy with biopsies. Endoscopically, there is no significant evidence of muco (more content not included)... Normal [facility] CNOVon 12-03-2023 CNOV Office Visit (PEGAMD ) JULIAN WHITNEY ([id number]) 5 F Date Time Provider Department 12/03/23 10:00 AM CAROLINA JORDAN During your visit today, we recorded the following information about you: Temperature Pulse Respiration Blood pressure 98.8 degrees 72/minute 19/minute 104/55 Weight Height Last Period 55.4 kg 1.695 m 11/19/23 Carolina Jordan MD 12/03/2023 9:50 PM Signed Referring MD: This patient was referred by Breanna Rodrigues MD for evaluation and management of Patient presents with: Procedure Follow Up Chronic abdominal pain Weight loss Our recommendations will be communicated back (either as a letter or via electronic medical record delivery) to Breanna Rodrigues MD. Medications: Current Outpatient Medications Medication Sig Dispense Refill dicyclomine (BENTYL) 10 mg capsule Take 1 capsule by mouth every 6 hours as needed. 60 capsule 1 ferrous sulfate 325 mg (65 mg iron) tablet TAKE 1 TABLET BY MOUTH EVERY DAY WITH BREAKFAST 30 tablet 2 Drospirenone-Ethinyl Estradiol (TISHA, 28,) 3-0.03 mg per tablet Take 1 tablet by mouth once daily. FOR CONTINUOUS USE - TAKE ONLY ACTIVE PILLS FOR 12 WEEKS AND THEN TAKE ONE WEEK OF PLACEBO PILLS. 112 tablet 4 No current facility-administered medications for this visit. HPI: Julian Whitney is a mildly 18 year old female being seen today in follow up on December 02, 2023 (last clinic visit was September 29, 2023 after initial new consultation in pediatric GI clinic December 2022) secondary to issues with chronic abdominal pain, unintentional weight loss, early satiety, and follow-up of previous endoscopic evaluation. The patient presents to follow up with mother who provides the history today. Background history: Updated/reviewed She is a previously healthy young woman with past medical history significant for past acetaminophen overdose but otherwise, no other underlying medical issues. Prior to her initial clinic visits, she had been assessed in the emergency room October 2022 due to escalating sharp cramping abdominal pain without radiation worse in the mornings and associated with nausea. She denied any other significant upper GI tract symptoms and was also having normal stools. There were no prior infectious prodrome preceding this, new medication use, or other new stressors/dietary changes. In addition to her gastrointestinal symptoms, she endorsed ongoing intermittent dizziness feeling hot with heart palpitations but not completely panic attacks as per her report. Laboratory evaluation by her general surgeon was quite comprehensive and within normal limits including a complete blood count, comprehensive metabolic panel, and serum inflammatory markers. We first recommended Periactin, and completion of her laboratory evaluation with fecal inflammatory markers. I subsequently saw her back in clinic after her original December 2022 visit in September 2023. At that time, they noted that she was having issues with sporadic stooling, only rare diarrhea, but ongoing unchanged abdominal pain. Summary of abdominal pain survey: Responses from December 2022 are in italics with current/confirmed unchanged answers in bold print Location of pain:Periumbilical Initial start of pain (date): October 2022 Quality of pain: Tight and tense --> unchanged Duration of episodes: Longer in the mornings hours; more intermittent lasting minutes; no nocturnal awakening --> still in the mornings > afternoons without nocturnal awakening (episodes in the afternoons are intermittent) Frequency: At least 3-4 times daily --> multiple times daily Exacerbating factors: Continues to endorse that no specific foods aggravate symptoms although spicy foods may have aggravated things in the past Ameliorating factors: Lying down; Nexium has not helped. Periactin also has not made an impact although she was only on it for a couple of weeks Nocturnal awakening:No Tenesmus: ? Yes --> no Blood: No Mucus: No Upper GI tract symptoms: Acid brash: No Heartburn: No Dysphagia: No Associated nausea: 2-3 weeks with NBNB emesis not necessarily associated immediately with eating; no recurrent vomiting but continues to have nausea intermittently and early satiety over the past 5 to 6 months Epigastric pain: None Given ongoing weight loss of 10 pounds between December to September of 2023, we reordered calprotectin and Hemoccult which were within normal limits. Therefore, we made the decision to proceed with upper endoscopic evaluation given her ongoing weight loss and reports of possible early satiety but held on colonoscopy given the fact that her calprotectin and Hemoccult were normal, and she was not having any issues with significant diarrhea. Interval history Since her last clinic visit, she underwent upper endoscopy with biopsies. Endoscopically, th (more content not included)... [facility] HNO ID: [id number] Author: ABIMBOLA DRUMMOND CCLS Service: [facility] Author Type: Search Specialist Type: Allied Health Filed: 11/26/2023 12:47 Note Text: [facility] NOTE SERVICE DATE: 11/26/2023 SERVICE TIME: 1215 Time Spent: 16-30 Minutes Specialty: Gastroenterology (GI) Referral Source: Self Clinical Intervention Intervention: Introduction of Services, Procedural Preparation/Education , Procedural Support Procedural Support: IV Placement/Removal Procedural Preparation/Education : Anesthesia Induction, IV Placement/Removal Present During Intervention: Mother Involvement During Intervention: Parent/Caregiver Present - Engaged Goals: To Enhance Understanding of Procedure/Diagnosis, To Promote Positive Coping, To Provide an Alternative Focus for Procedure, To Reduce Fears and Anxiety Assessment Patient Coping: Anxious, Attentive, Engaged Receptivity to Child Life Support: Receptive Level of Anxiety and Distress : Somewhat Anxious Health Care Factors: Some Previous Hospitalizations Coping Measures Coping Tools: Distraction, Verbal Reassurance, Pain Ease/Freeze [place] Objective Observations: Pt identified anxiety related to procedure and expressed worry that she would be awake during procedure based on her google search. Certified Search Specialist (CCLS) spent much time walking pt throughout process and reassuring pt that she would be under anesthesia for her scopes and not feel or experience anything during procedure. Pt shared other previous medical experiences for her to be [place] which she was awake for and per mother, cried throughout entire procedure. Pt reassured once learning she would be under anesthesia and denied any anxiety related to IV placement. Pt coped positively during IV placement. Pt asked appropriate questions and while she remained anxious, pt identified a decrease in anxiety once receiving preparation. Mother identified pt to be someone who passes out often and pt identified anxiety to be a trigger for her. CCLS and RN encouraged pt to communicate her anxiety throughout pre-op and post-op to assure that when possible passing out could be prevented. Plan Plan for Follow Up: Child Life Will Provide Support as Needed SIGNATURE: CT Dietz PATIENT NAME: Julian Whitney DATE: November 26, 2023 TIME: 12:43 PM PAGER/CONTACT #: [phone] [facility] ANES POSTPROC EVALon 024 ANES POSTPROC EVAL HNO ID: [id number] Author: BERNARDO LYONS MD Service: ? Author Type: Anesthesiologist Type: Anesthesia Postprocedure Evaluation Filed: 11/26/2023 15:17 Note Text: POST ANESTHESIA EVALUATION NOTE : 2005 Procedure Summary Date: 11/26/23 Room / Location: PEDS PROC [id number] / PEDS PROC R Anesthesia Start: 1402 Anesthesia Stop: 1430 Procedure: EGD WITH BIOPSY (Abdomen) Diagnosis: Generalized abdominal pain Nausea Weight loss, unintentional Early satiety (Generalized abdominal pain [R10.84]) (Nausea [R11.0]) (Weight loss, unintentional [R63.4]) (Early satiety [R68.81]) Surgeons: Tyler Aparicio MD Responsible Provider: Bernardo Lyons MD Anesthesia Type: general ASA Status: 1 Anesthesia Type: general Airway Type: supplemental O2 Last Vitals Vitals Value Taken Time BP 104/67 11/26/23 1510 Temp 36.4 ?C (97.5 ?F) 11/26/23 1430 Pulse 53 11/26/23 1510 Resp 20 11/26/23 1440 SpO2 100 % 11/26/23 1510 Vitals shown include unfiled device data. Post Anesthesia Patient Status Patient Evaluation: PACU. PACU/ICU Patient Condition: stable. Anticipated Disposition: phase 2 then home. Neurological Status: aware and responsive. Pulmonary Status: breathing comfortably on room air Airway Control: returned to baseline unsupported. Cardiovascular Status: stable. Pain Management: clinically adequate Postoperative Hydration: acceptable. Intraoperative Events: no significant anesthesia events Post Operative Nausea/Vomiting Status: no significant post operative nausea or vomiting Recommendation: continue current plan of care. Anesthesia Observations No notable events were associated with this procedure. Documented by Gina Peña SRNA 11/26/2023 2:33 PM EST SIGNATURE: Bernardo Lyons MD PATIENT NAME: Julian Whitney DATE: November 26, 2023 TIME: 3:16 PM CSN: [id number] Normal [facility] ANES PRE-OPon 11-26-2023 ANES PRE-OP HNO ID: [id number] Author: BERNARDO LYONS MD Service: ? Author Type: Anesthesiologist Type: Anesthesia Preprocedure Evaluation Filed: 11/26/2023 11:53 Note Text: PEDIATRIC ANESTHESIOLOGY DAY OF SURGERY NOTE : 2005 Procedure(s) (LRB): EGD WITH BIOPSY (N/A) Surgeon(s): Tyler Aparicio MD Estimated body mass index is 19.11 kg/m? as calculated from the following: Height as of 11/24/23: 169.5 cm (5' 6.73). Weight as of 11/24/23: 54.9 kg (121 lb 0.5 oz). Most recent hematocrit and potassium results: Hematocrit 39.0 09/29/2023 Potassium 4.3 09/29/2023 Relevant Problems ANESTHESIA (-) History of anesthesia complications PULMONARY (+) Mild intermittent asthma (-) Recent URI Gastrointestinal (+) Abdominal pain (+) Gastritis Physical Exam Airway: Mallampati scale: I. TM distance is normal. Mouth opening is normal. She has normal appearing naso-oral features, no dysmorphic features and no loose teeth. Head: Normocephalic. Mouth/Throat: Dentition is normal. Neck: Normal range of motion. Cardiovascular: Normal rate, regular rhythm, S1 normal and S2 normal. Pulmonary/Chest: Effort normal. Breath sounds clear to auscultation. Musculoskeletal: General: Normal range of motion. Cervical back: Normal range of motion. Neurological: She is alert. She has normal strength. Vitals reviewed. Anesthesia Plan ASA 1 general intravenous induction Premedication planned: none Anesthetic plan and risks discussed with legal guardian. Use of blood products discussed with legal guardian. Patient / Surrogate agrees to blood products: consented Plan discussed with SOLAR SALES ADVISOR and SRNA. No vitals data found for the desired time range. I have interviewed and examined the patient. I have reviewed the medical record and/or the pre-anesthesia evaluation, pertinent labs, and test results. This contains updated information obtained within 48 hours of Surgery/Procedure. SIGNATURE: Bernardo Lyons MD PATIENT NAME: Julian Whitney DATE: November 26, 2023 TIME: 11:49 AM CSN: [id number] Normal [facility] CNCOon 11-26-2023 CNCO Letter Text Normal [facility] Fungus Spec Culton 4 Fungus identified Cx Nom (Unsp spec) ORGANISM ID: 1 Rare Lynn albicans Normal [facility] Comment on above: Performed By: #### 5 80-1 ####[facility] LABCLIA [id number] [place] [address] [place] HISTORY PHYSICALon 4 HISTORY PHYSICAL HNO ID: [id number] Author: TYLER APARICIO MD Service: Pediatric Gastroenterology Author Type: Physician Type: H&P Filed: 11/26/2023 17:24 Note Text: Carole Hernandez MD PEDIATRIC GASTROENTEROLOGY, HEPATOLOGY, AND NUTRITION Julian is being seen for pre-operative HANDP prior to endoscopy. My final recommendations will be communicated back to PCP by way of the shared medical record Prior Clinic Visit: 09/29/23 Age: [age] year old Medications: No current facility-administered medications on file prior to encounter. Current Outpatient Medications on File Prior to Encounter Medication Sig famotidine (PEPCID) 20 mg tablet Take 1 tablet by mouth two times a day. ferrous sulfate 325 mg (65 mg iron) tablet TAKE 1 TABLET BY MOUTH EVERY DAY WITH BREAKFAST Drospirenone-Ethinyl Estradiol (TISHA, 28,) 3-0.03 mg per tablet Take 1 tablet by mouth once daily. FOR CONTINUOUS USE - TAKE ONLY ACTIVE PILLS FOR 12 WEEKS AND THEN TAKE ONE WEEK OF PLACEBO PILLS. Background History: Julian Whitney is a 18 year old female being seen today for pre-operative HANDP. Interval History: Patient is here accompanied by mother who helps provide the history. Since the last visit, Lexie reported similar abdominal pain to what was described as mostly in the morning but can happen anytime of the day, lasting an hour at a time, resolves spontaneously and sometimes take Ibuprofen for the pain, but doesn't relieve it. Located mostly in the periumbilical region and sometimes lower quadrants. Never radiates anywhere else. No nausea or vomtiting. Passes 1-2 BM daily that are soft and non-bloody. She missed days of school which eventually switched to online school by the end of October. Patient denies cough, rhinorrhea, fevers, or recent illness. Patient remains NPO per guidelines without any issues. No prior issues with anesthesia. Family has no questions at this time. Review Of Systems: All review of system were reviewed and are negative, except as noted above. Past medical, family history, and surgical history: reviewed with no new additions noted. PAST MEDICAL HISTORY Diagnosis Date Anemia, unspecified NEGATIVE MEDICAL HISTORY normal color vision PAST SURGICAL HISTORY Procedure Laterality Date TONSILLECTOMY AND ADENOIDECTOMY Dr Stiven Fuller FAMILY HISTORY Problem Relation Age of Onset No Known Problems Mother Diabetes Father Macular Degen Father Heart Sister WPW Diabetes Maternal Grandmother Heart Maternal Grandfather 54 MT; arrthymia Hypertension Maternal Grandfather Celiac Disease No Family History Inflammatory Bowel Disease No Family History Thyroid No Family History Physical Exam: BP 129/83 Pulse 71 Temp 36.8 ?C (98.2 ?F) (Temporal) Resp 20 Wt 55.2 kg (121 lb 11.1 oz) LMP 11/19/2023 (Approximate) SpO2 100% BMI 19.21 kg/m? General Condition: Well appearing Skin: No jaundice Head/Neck: Atraumatic, normocephalic Eyes: Clear sclera, no icterus Oropharynx: MMM Lungs/Thorax: Lungs clear to auscultation bilaterally, without coarse breath sounds, wheezing, nasal flaring, or retractions Cardiovascular: RRR, S1 and S2 present, no murmurs Abdomen: Soft, non distended, bowel sounds present, no palpable masses, no hepatomegaly or splenomegaly Musculoskeletal:No focal defect or deformity Neurologic: Normal tone and activity Labs/Radiology: Reviewed. Impression: Julian Whitney is a 18 year old female being seen today pre-operative HANDP prior to endoscopy. The patient has had not recent illness and based on physical exam, the patient is cleared to proceed with the scheduled procedure today. Consent is in the chart. Plan: -Proceed with endoscopy -Follow up as recommended after procedure Carole Hernandez MD Pediatric Gastroenterology Fellow, PGY-5 P: [id number]/ [id number] 11/26/23 11:36 AM CC: Breanna Rodrigues MD @[facility]@ [phone] Reviewed and agree. Tyler Aparicio MD [facility] NURSING PROGon 11-26-2023 NURSING PROG HNO ID: [id number] Author: CHANTEL LEUNG RN Service: Nursing Author Type: Registered Nurse Type: Nursing Progress Note Filed: 11/26/2023 12:24 Note Text: Patient arrived to R1 Procedure area accompanied by Mom. Verified patient was maintained NPO per anesthesia guidelines. Pt denies any recent illness. Patient/family oriented to unit/room, instructed on use of call button. Parking provided x1. Patient/family verbalize understanding, questions and concerns addressed at this time. Chantel Leung RN Normal [facility] Pediatric Upper GI Endoscopy on 11-26-2023 Pediatric Upper GI Endoscopy Pediatrics Gastrointestinal Endoscopy Patient Name: Julian Whitney Procedure Date: 11/26/2023 1:41 PM Date of : 2005 Admit Type: Outpatient Age: 18 Gender: Female Note Status: Finalized Procedure: Pediatric Upper GI Endoscopy Indications: Abdominal pain Providers: Carole Knowles MD (Fellow) Patient Profile: This is an 18 year old female. , Refer to note in patient chart for documentation of history and physical. Referring Physician: Medicines: General Anesthesia without ET Tube Complications: No immediate complications. Estimated blood loss: Minimal. Requesting Provider: Procedure: After obtaining informed consent, the endoscope was passed under direct vision. Throughout the procedure, the patient's blood pressure, pulse, and oxygen saturations were monitored continuously. The Endoscope was introduced through the mouth, and advanced to the second part of duodenum. The upper GI endoscopy was accomplished without difficulty. The patient tolerated the procedure well. Findings: The Z-line was regular and was found 38 cm from the incisors. Patchy mild mucosal changes characterized by white exudates were found in the upper third of the esophagus, in the middle third of the esophagus and in the lower third of the esophagus. Biopsies were taken with a cold forceps for histology. Multiple biopsies were obtained in the lower third of the esophagus with cold forceps for histology. Cells for cytology were obtained by brushing. The entire examined stomach was normal. Biopsies were taken with a cold forceps for histology. Multiple biopsies were obtained on the greater curvature of the gastric body and in the gastric antrum with cold forceps for histology. The examined duodenum was normal. Biopsies were taken with a cold forceps for histology. Multiple biopsies were obtained in the duodenal bulb and in the second portion of the duodenum with cold forceps for histology. Impression: - Z-line regular, 38 cm from the incisors. - White exudates mucosa in the esophagus. Biopsied. Cells for cytology obtained. - Normal stomach. Biopsied. - Normal examined duodenum. Biopsied. - Multiple biopsies were obtained in the lower third of the esophagus. - Multiple biopsies were obtained on the greater curvature of the gastric body and in the gastric antrum. - Multiple biopsies were obtained in the duodenal bulb and in the second portion of the duodenum. Recommendation: - The patient will be observed post-procedure, until all discharge criteria are met. - Discharge the patient to home with parent(s). - Return to GI clinic as previously scheduled. Attending Participation: Attending was present for the entire procedure, including the insertion and removal of the endoscope, and assisted the fellow with performance of the procedure. MD Tyler Claudio, 11/26/2023 2:34:42 PM This report has been signed electronically by Tyler Aparicio Number of Addenda: 0 Note Initiated On: 11/26/2023 1:41 PM Procedure Start: 2:09:55 PM Procedure End: 2:24:21 PM Normal [facility] SURGICAL PATHOLOGYon 024 CASE REPORT Normal [facility] Comment on above: Order Comment: Speci karla Type: TISSUE SPECIMENOrdering Facility: [facility] Address: [address] [place] [address] Result Comment: Surg ical Pathology Report Case: [id number] Authorizing Provider: Tyler Aparicio MD Collected: 11/26/2023 02:12 PM Ordering Location: [facility] Received: 11/26/2023 04:28 PM Pathologist: Ren Diaz MD Specimens: A) - DUODENUM BIOPSY B) - DUODENUM BIOPSY, duodenal bulb C) - ANTRUM (STOMACH) BIOPSY D) - STOMACH BIOPSY, gastric body E) - ESOPHAGUS LOWER BIOPSY, distal esophagus Performed By: #### S ####[facility] [facility]ATORYCLIA [id number] [address] OF [facility] LABCLIA [id number] [address] CLINICAL HISTORY Normal [facility] Comment on above: Order Comment: Felipe acosta Type: TISSUE SPECIMENOrdering Facility: [facility] Address: [address] [place] [address] Result Comment: Pre- op diagnosis: Generalized abdominal pain [R10.84] Nausea [R11.0] Weight loss, unintentional [R63.4] Early satiety [R68.81] Performed By: #### S ####[facility] LABORATORYCLIA [id number] [address] LABCLIA [id number] [address] FINAL DIAGNOSIS Normal [facility] Comment on above: Order Comment: Speci men Type: TISSUE SPECIMENOrdering Facility: [facility] Address: [address] [place] [address] Result Comment: A. D uodenum, biopsy: - Small bowel mucosa with no significant pathologic changes. - No evidence of celiac sprue. B. Duodenum, bulb, biopsy: - Duodenal mucosa with no significant pathologic changes. - No evidence of celiac sprue. C. Stomach, biopsy: - Antral mucosa with no significant pathologic changes. - No evidence of H. pylori. D. Stomach, body, biopsy: - Fundic mucosa with no significant pathologic changes. - No evidence of H. pylori. E. Lower esophagus, biopsy: - Squamous mucosa with no significant pathologic changes. - No evidence of eosinophilic esophagitis. Performed By: #### S ####[facility] LABORATORYCLIA [id number] [address] LABCLIA [id number] [address] FINAL PERFORMING LAB Normal [facility] Comment on above: Order Comment: Speci men Type: TISSUE SPECIMENOrdering Facility: [facility] Address: [address] [place] [address] Result Comment: Diag nostic interpretation performed at [facility], [address] [id number] CLIA# [id number] Box Closing Machine Operator: Opal Alcocer M.D. Performed By: #### S ####[facility] LABORATORYIA [id number] [address] [id number] [address] [place] GROSS DESCRIPTION Normal [facility] Comment on above: Order Comment: Speci men Type: TISSUE SPECIMENOrdering Facility: [facility] Address: [address] [place] [address] Result Comment: A. D UODENUM BIOPSY Received in formalin is one piece of chavira, soft tissue measuring 0.4 x 0.2 x 0.2 cm. Totally submitted in one cassette. B. DUODENUM BIOPSY Received in formalin is one piece of chavira-red, soft tissue measuring 0.3 x 0.3 x 0.2 cm. Totally submitted in one cassette. C. ANTRUM (STOMACH) BIOPSY Received in formalin is one piece of chavira, soft tissue measuring 0.4 x 0.3 x 0.2 cm. Totally submitted in one cassette. D. STOMACH BIOPSY Received in formalin are two pieces of chavira-red, soft tissue aggregating to 0.4 x 0.3 x 0.2 cm. Totally submitted in one cassette. E. ESOPHAGUS LOWER BIOPSY Received in formalin are two pieces of chavira-white, soft tissue aggregating to 0.5 x 0.2 x 0.2 cm. Totally submitted in one cassette. Gross examination performed at [facility], [address] [place] [address] November 26, 2023 9:21 PM Performed By: #### S ####[facility] LABORATORYIA [id number] [address] LABIA [id number] [address] OF [place] Jaky 11-24-2023 CNOV Office Visit (CHPDMN ) JULIAN WHITNEY ([id number]) 5 F Date Time Provider Department 11/24/23 10:00 AM MARK SHEEHAN CHPDMN During your visit today, we recorded the following information about you: Temperature Pulse Respiration Blood pressure 98.2 degrees 83/minute 20/minute 130/80 Weight Height Last Period 54.9 kg 1.695 m 11/15/23 Mark Sheehan MD 11/24/2023 12:47 PM Signed Pediatric and Congenital Heart Rhythm / Electrophysiology Clinic Patient Name: Julian Whitney Date of : 2005 Date of Visit: 11/24/2023 Reason for Consultation: Syncope, family history of WPW The history is provided by Julian and her mother. History of Present Illness: Julian Whitney is a 18 year old female seen by Pediatric Electrophysiology at the [facility] on November 24, 2023 in consultation for syncope. Julian Whitney's cardiovascular history is well summarized from our last clinic visit on 06/28/2022 as follows: Julian experienced blurred vision then dark vision followed by heart racing just prior to her event. She was unconscious for about 10 seconds and woke up with a headache. She states that for weeks prior she experienced similar pre-syncopal symptoms without loss of consciousness. Julian was seen by Dr. Janette Pinto at that time and an ECG was performed which showed sinus bradycardia. She was referred to our service for further evaluation. She was placed on an iron supplement though is not anemic. She has not had syncope prior or since. Of note, Julian was seen by our service on 07/26/2018 for musculoskeletal chest pain. Her ECG was normal at that time and we follow her twin sister (Zan) for Lhsxq-Mjqhxhyle-Ebzbz syndrome. Zan had a successful ablation by our service and is doing well. Julian was evaluated again in our office in June 2022 for syncope. Her evaluation was unremarkable and reassuring and we felt that her syncopal event was related to vagal stimulation. Cardiac Review of Systems: Julian complains of syncope. She has had several events since our last visit. In October 2022, she was running outside and felt out of breath. She stopped running and felt dizzy. Shortly thereafter she passed out. She woke quickly thereafter and felt a bit woozy. She had an event at a concert in March 2023. She started to feel unwell and walked over the a fence to hold her up for support. She slowly slumped to the ground. She was picked up and while being supported, passed out again. She received IV fluids in a medical tent and improved after 15 minutes. Her next event occurred in August 2023. She was at a tanning salon and felt unwell while filling out paper work. She sat down on the ground and passed out. The staff at the salon laid her down and she felt better after her feet were put up. Of note, she donated blood that day. Unless otherwise noted, Julian is asymptomatic from a cardiovascular standpoint including no palpitations, chest pain, dyspnea, cyanosis, edema or activity intolerance. GI referred her back to our service for clearance prior to a recommended endoscope. Review of Systems: +GI - discomfort in the AM +10 lb weight loss in the last year The remainder of the review of systems is negative. Past Medical History: PAST MEDICAL HISTORY Diagnosis Date Anemia, unspecified NEGATIVE MEDICAL HISTORY normal color vision Social History: Julian lives with her twin sister, mother and father. She has an older sister has moved out of the house and is . She also has two older brothers that live out of the house. Julian is currently in 12th grade. She will be graduating in 4 months. 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 Cardiac Family History: FAMILY HISTORY Problem Relation Age of Onset No Known Problems Mother Diabetes Father Macular Degen Father Heart Sister WPW Diabetes Maternal Grandmother Heart Maternal Grandfather 54 MT; arrthymia Hypertension Maternal Grandfather Celiac Disease No Family History Inflammatory Bowel Disease No Family History Thyroid No Family History Sister (Zan) - WPW s/p ablation of a right lateral accessory pathway No additional history of syncope, seizures, arrhythmias, drownings, single car accidents, sudden cardiac , early pacemaker or ICD implantation or congenital deafness. Medications: famotidine (PEPCID) 20 mg tablet Take 1 tablet by mouth two times a day. ferrous sulfate 325 mg (65 mg iron) tablet TAKE 1 TABLET BY MOUTH EVERY DAY WITH BREAKFAST Drospirenone-Ethinyl Estradiol (TISHA, 28,) 3-0.03 mg per tablet Take 1 tablet by mouth once daily. FOR CONTINUOUS USE - TAKE ONLY ACTIVE PILLS FOR 12 WEEKS AND THEN TAKE ONE WEEK OF PLACEBO PILLS. Allergies: ALLERGIES No Known Allergies Physical Examina (more content not included)... Normal [facility] [id number] 11-24-2023 ECG01 Ventricular Rate : 5 6 BPM Atrial Rate : 56 BPM P-R Interval : 84 ms QRS Duration : 90 ms Q-T Interval : 440 ms QTC Calculation(Bazett) : 424 ms Calculated P [place] : 53 degrees Calculated R [place] : 80 degrees Calculated T [place] : 49 degrees Sinus bradycardia with sinus arrhythmia NO SIGNIFICANT CHANGE WAS FOUND Confirmed by MARK SHEEHAN M.D. ([id number]) on 11/24/2023 10:18:49 AM NAME : CHELOGILANDREINA PID : [id number] : 2005 Gender : Female Race : ORD : Procedure Date : Nov 24 2023 10:06:48 Edit Date : Nov 24 2023 10:18:50 Diagnosis: Sinus bradycardia with sinus arrhythmia NO SIGNIFICANT CHANGE WAS FOUND Confirmed by MARK SHEEHAN M.D. (82) on 11/24/2023 10:18:49 AM Test Reason : EKG Location : 570 : R2PNS Overread By : MARK SHEEHAN M.D. Edited By : MARK SHEEHAN M.D. Referred By : DEBORAH, [facility] by : [facility] Cheston [facility] Chest [facility] Imaging Services [address] [place] [id number] [facility] Chest MR#: [id number] Acct: [id number] Name: CHELOJULIAN Patel Rep #: [id number] : 2005 F 18 From: Henry xie MD PCP: Dr. Damien Patel MD Status: REG ER Study: [facility] Chest Date of Exam: 08/04/23 Exam# [id number] Ordering Dr: Bradly Denton MD [id number] STUDY: X-RAY - ACUTE ABDOMINAL SERIES REASON FOR EXAM: Female, 18 years old. Pain -- -- PT STATES ABD FEELS TIGHTNESS, NOT REALLY PAIN, NO N/V/D TECHNIQUE: Single view of the chest. Supine, and erect view(s) of the abdomen were obtained. COMPARISON: None. FINDINGS: The lungs are clear and expanded. Normal size heart. Normal mediastinum and karon. Normal visualized pulmonary arteries. Normal visualized aortic arch and descending thoracic aorta. There is a moderate amount of colonic fecal material. The soft tissue structures of the abdomen and pelvis are unremarkable. Normal visualized osseous structures. RAD/Acute Abdomen Inc Chest IMPRESSION: Moderate amount of fecal material is seen in the colon. Electronically Signed: Henry Díaz MD at 8:50 EDT Reading Location ID and State: [facility] / [place] , Service support , CC: Dr. Bradly Denton MD; Dr. Damien Patel MD [employer] Admissions Representative: Signed Normal [facility] Emergency Department Summary on 08-04-2023 Emergency Department Summary [facility] Medical Records Department [address] [place] [address] Emergency Department Summary 08/04/23 MR#: [id number] Acct: [id number] Name: JULIAN WHITNEY Rep #: [id number] : 2005 18 From: Bradly Denton MD PCP: Dr. Damien Patel MD Status:REG ER Location: ED HPI HPI - GI History of Present Illness Chief Complaint: Abd Pain Narrative Narrative: 18-year-old female who denies significant past medical history presents with her mother for abdominal pain and cramping that began earlier this morning. She states that she awoke around 5 AM, approximately 3 hours ago, with crampy abdominal pain. She denies any nausea or vomiting, no diarrhea, no problems with urination, dysuria, or hematuria. She denies any exacerbating or alleviating factors to her pain. States she was able to go back to sleep but then awoke again at 630 and had crampy abdominal pain that is more diffuse. Last menstrual period was approximately a week and a half ago. She states she has had abdominal pain in the past and usually curling up into the position can help it, however it did not help today. No prior abdominal surgeries. PFSH PFS Home Medications esomeprazole magnesium 20 mg capsule,delayed release (Nexium) 20 mg PO DAILY #30 caps 11/12/22 [Rx Last Taken Unknown] drospirenone 3 mg-ethinyl estradiol 0.03 mg tablet tab 08/04/23 [History Last Taken Unknown] Allergy/AdvReac Type Severity Reaction Status Date / Time No Known Allergies Allergy Verified 08/04/23 07:54 Social History Smoking Status: Never smoker ROS ROS ED ROS Narrative Constitutional: No fever, no chills. HEENT: No sore throat. No neck pain. No loss of vision. No rhinorrhea. Cardiovascular: No chest pain. No palpitations. No pedal edema. Respiratory: No cough, no shortness of breath. Abdominal: Periumbilical to diffuse crampy, squeezing abdominal pain. No nausea. No vomiting. No diarrhea. Genitourinary: No dysuria. No hematuria. Musculoskeletal: No myalgias. No arthralgias. Neurologic: No headaches. No dizziness. No lightheadedness. Skin: No rash. No change in color. Psychiatric: No depression. No anxiety. EXAM Physical Exam Narrative Exam Narrative: Afebrile. Vital signs noted. HEENT: Normocephalic. Atraumatic. PERRL, EOMI. Neck soft and supple. No point tenderness or step off. Cardiovascular: Regular rate and rhythm. No murmurs, rubs, or gallops appreciated. Respiratory: No tachypnea. Lungs clear to auscultation bilaterally. Gastrointestinal: Abdomen soft, nontender, with normoactive bowel sounds. No rebound or guarding. No pain over McBurney's point. Neurological: Awake. Alert. Nonfocal, nonlateralizing. Skin: No rash. Normal color. No pallor. Musculoskeletal: No pedal edema. Full range of motion extremities. Const Vital Signs: 08/04/23 07:52 Temperature 98 F Temperature Source Temporal Pulse Rate 66 Respiratory Rate 16 Blood Pressure 102/69 L Blood Pressure Mean 80 Pulse Ox 100 Oxygen Delivery Method Room Air MDM MDM MDM Narrative Medical decision making narrative: I do not feel laboratory work is indicated. Patient has a nonsurgical abdomen. I have low suspicion for clinical appendicitis. She may have more abdominal cramping and constipation versus nonspecific abdominal pain. Additionally, I have low suspicion for ectopic as the history and physical does not support that. However, UA, hCG, and abdominal x-rays will be obtained to help rule out bowel obstruction. However, she does not have a surgical history or reason to be having a bowel obstruction and no further evidence of nausea or vomiting. She states she has been unable to urinate and/or have a bowel movement today/this morning. Her laboratory work and her urine test is negative, urinalysis shows 5-10 WBCs with 2+ bacteria but there are 10-25 squamous epithelial cells. I feel this is contaminated specimen and I do not feel antibiotics are indicated, and I do not feel urine culture is indicated. 3 view abdominal x-rays interpreted by myself show moderate amount of stool in the colon but no evidence of an obstructive pattern. I reviewed the radiology report which confirms my independent interpretation. She was told to take uxrh-tzx-mcakevi MiraLAX. I will not write her a prescription for Bentyl because of the moderate stool in the colon and I do not want to cause more constipation. When I was explaining the results to the patient and her mother, mother states that she has had problems like this in the past. She will be referred to gastroenterology to follow-up as needed. I do not feel she requires any CT imaging, laboratory work, or admission. They were given appendicitis instructions, but upon repeat examination she is resting c (more content not included)... [facility] ,Urineon 08-04-2023 Beta HCG ( test) Ql (U) Negative [facility] Comment on above: Order Comment: Result Comment: Very dilute urine specimens, as indicated by a low specific gravity, may not contain bilingual inside sales representative levels of hCG. If is still suspected, a first morning urine specimen should be collected 48 hours later and tested. Performed By: #### L 400.7600 #### [facility] [address] [place], [address] Urinalysis, Completeon 08-04 BACTERIA 2+ /hpf Normal None Seen [facility] Comment on above: Order Comment: COLLE CTOR TO SPECIFY Performed By: #### L 400.0001 #### [facility] [address] [place], [address] EPI,SQUAMOUS 10-25 SEEN Normal 5-10 [facility] Comment on above: Order Comment: COLLE CTOR TO SPECIFY Performed By: #### L 400.0001 #### [facility] [address] [place], [address] WBC 5-10 SEEN Normal 0-5 [facility] Comment on above: Order Comment: COLLE CTOR TO SPECIFY Performed By: #### L 400.0001 #### [facility] [address] [place], [address] Mucus Ql (Urine sed) 0 SEEN Normal [facility] Comment on above: Order Comment: COLLE CTOR TO SPECIFY Performed By: #### L 400.0001 #### [facility] [address] [place], [address] RBC 0 SEEN Normal 0-5 [facility] Comment on above: Order Comment: COLLE CTOR TO SPECIFY Performed By: #### L 400.0001 #### [facility] [address] [place], [address] 12 Lead EKGon 06-15-2023 12 Lead EKG [facility] Cardiovascular Services [address] [place] [address] 12 Lead EKG 06/15/23 1225 MR#: [id number] Acct: [id number] Name: JULIAN WHITNEY Rep #: [id number] : 2005 17 From: Phoenix Dudley MD Attending Dr: Status: DEP ER Ordering Dr: Shereen Grider Date: 06/15/23 Location: ED Sex: F C Admitted: Test Reason : Blood Pressure : / mmHG Vent. Rate : 053 BPM Atrial Rate : 053 BPM P-R Int : 104 ms QRS Dur : 084 ms QT Int : 424 ms P-R-T Axes : 054 079 055 degrees QTc Int : 397 ms Sinus bradycardia with sinus arrhythmia with short OH Otherwise normal ECG Confirmed by LORRAINE MAGAÑA, PHOENIX ([id number]), design editor ESPINOZA COTA ([id number]) on 06/17/2023 10:53:40 AM Referred By: Confirmed By:PHOENIX DUDLEY MD 06/17/23 1053 Date Phoenix Dudley MD CC: Dr. Damien Patel MD; Dr. Dash Vazquez MD; RELL Ag Signed [facility] Emergency Department Summary on 06-15-2023 Emergency Department Summary [facility] Medical Records Department [address] [place] [address] Emergency Department Summary 06/15/23 MR#: [id number] Acct: [id number] Name: JULIAN WHITNEY Rep #: [id number] : 2005 17 From: Dash Vazquez MD PCP: Dr. Damien Patel MD Status:DEP ER Location: ED HPI History of Present Illness Chief Complaint: Syncope Narrative Narrative: Patient presenting today with her mom due to a syncopal episode that occurred yesterday. She reports that she was at a concert and it was hot outside, she was standing in the pit and began to feel like she was going to pass out, she walked over to stand by a gait when her legs gave out and she fell to the ground. She reports that her friends immediately lifted her off the ground, she regained consciousness quickly and she took 3-4 steps before she passed out again. She reports that she has had 2 previous episodes of syncope, one while she was running at track and another while she was warming up for band. Her twin sister has a history of Carpenter Parkinson's White. She has been seen by a manager financial services around a year ago and was told everything was normal but has not seen them since the syncopal episodes. She denies any fever, chills, abdominal pain, nausea, and vomiting. She reports that she does take control and has had normal menstrual periods. [facility] Home Medications esomeprazole magnesium 20 mg capsule,delayed release (Nexium) 20 mg PO DAILY #30 caps 11/12/22 [Rx Last Taken Unknown] amoxicillin 875 mg-potassium clavulanate 125 mg tablet 1 tab PO BID #6 tabs 06/15/23 [Rx Last Taken Unknown] Allergy/AdvReac Type Severity Reaction Status Date / Time No Known Allergies Allergy Verified 06/15/23 11:47 Social History Smoking Status: Never smoker ROS ROS ED Constitutional Constitutional ED: Denies chills or fever(s) Cardiovascular Cardiovascular: Denies chest pain Respiratory/Chest Respiratory/Chest: Denies cough or dyspnea Gastrointestinal Gastrointestinal: Denies abdominal pain, nausea or vomiting Musculoskeletal Musculoskeletal: Denies arthralgias or myalgias Integumentary Denies rash Neurologic Neurologic: Denies confusion or dizziness EXAM Physical Exam Const Vital Signs: 06/15/23 11:45 06/15/23 12:15 Temperature 97 F Temperature Source Temporal Pulse Rate 79 Respiratory Rate 18 Respiratory Effort Normal Non-Labored Respiratory Pattern Normal Blood Pressure 130/91 H Blood Pressure Mean 104 Pulse Ox 99 Oxygen Delivery Method Room Air Positive well nourished, well developed and no apparent distress General Appearance ED: well developed HEENT Reports normocephalic and head/scalp atraumatic Mouth ED: Yes moist mucous membranes normal Eyes PERRL and EOMs intact bilaterally Neck full ROM and supple Chest Wall inspection of chest normal Resp normal respiratory effort and clear to auscultation bilaterally Cardio regular rate and regular rhythm GI soft to palpation, non-tender, non-distended and no masses Back/Spine normal ROM and normal to inspection Extremity normal to inspection and full ROM Extremity Narrative: Dog bite to the medial aspect of the left upper arm, small puncture wound and small amount of bruising to the area. Neuro oriented x3, CN's II-XII intact bilaterally, moves all extremities, no focal motor deficits and no sensory deficits noted Sensorium / Orientation: awake and alert Psych mental status grossly normal and thought process normal Skin no rashes or lesions noted and no wounds Physical Exam Const Vital Signs: 06/15/23 11:45 06/15/23 12:15 Temperature 97 F Temperature Source Temporal Pulse Rate 79 Respiratory Rate 18 Respiratory Effort Normal Non-Labored Respiratory Pattern Normal Blood Pressure 130/91 H Blood Pressure Mean 104 Pulse Ox 99 Oxygen Delivery Method Room Air MDM MDM MDM Narrative Medical decision making narrative: Patient presenting for evaluation due to 2 syncopal episodes that occurred yesterday. She was at a concert where it was hot, she was standing in the pit and began to feel like she was going to pass out, she did have 2 syncopal episodes that were witnessed. No seizure-like activity. She has a history of syncope over the last year and has passed out about 4 times. She did see a manager financial services prior to the syncope starting due to a family history of Reardon Parkinson's White which patient does not have. EKG here shows sinus bradycardia which patient does have a history of. Patient also reports that she was bit by a dog yesterday to her left upper arm.. She is up-to-date with her tetanus shot, the dog is up-to-date on shots. She will be started on (more content not included)... Normal [facility] 25(OH)D3 [facility] 2022 25-hydroxyvitamin D3 [Mass/Vol] 56.0 ng/mL Normal 31.0-80.0 [facility] Comment on above: Order Comment: Speci men Type: BLOOD SPECIMEN Ordering Facility: [facility] Address: [address] [place], [place] [id number] Result Comment: Clas sification of 25 [place] Vitamin D status: Deficiency/Insufficiency: < or = 30 ng/ml. Sufficiency/Optimal Levels: 31-80 ng/mL Toxicity: > 100 ng/mL. Test performed by chemiluminescent immunoassay. Performed By: #### 1 989-3 #### [facility] CLIA [id number] [address] [facility] [place] [address] [place] FERRITIN BLDon 01-01-2023 Ferritin [Mass/Vol] 19.0 ng/mL 14.7 - 2 05.1 ng/mL [facility] Ferritin SerPl-mCncon 2022 Ferritin [Mass/Vol] 19.0 ng/mL Normal 14.7-205.1 [facility] Comment on above: Order Comment: Speci men Type: BLOOD SPECIMEN Ordering Facility: [facility] Address: [address] [place] [address] Performed By: #### 3 040-3, 6-4, 82571-7 #### [facility] CLIA [id number] [address] [place] [address] [place] IGA BLDon 01-01-2023 IgA [Mass/Vol] 140 mg/dL 61 - 348 mg/dL [facility] IgA SerPl-mCncon 01-01-2023 IgA [Mass/Vol] 140 mg/dL Normal 61-348 [facility] Comment on above: Order Comment: Italoi men Type: BLOOD SPECIMEN Ordering Facility: [facility] Address: [address] [address] Performed By: #### 2 458-8 #### [facility] CLIA [id number] [address] [facility] [id number] [place] Iron and Iron binding capaci ty panel 01-01-2023 Iron [Mass/Vol] 36 ug/dL Low 41 - 186 ug/dL [facility] Iron binding capacity [Mass/Vol] [facility] Iron/TIBC [Molar ratio] C [facility] Iron [Mass/Vol] 36 ug/dL Low 41-186 [facility] Comment on above: Order Comment: Speci men Type: BLOOD SPECIMEN Ordering Facility: [facility] Address: [address] [place] [address] Performed By: #### 3 040-3, 6-4, 43815-9 #### [facility] CLIA [id number] [address] [place] Iron binding capacity [Mass/Vol] Normal [facility] Comment on above: Order Comment: Felipe men Type: BLOOD SPECIMEN Ordering Facility: [facility] Address: [address] [place] [address] Result Comment: Unab le to assay due to interference from hemolysis. Suggest reorder as clinically indicated. Performed By: #### 3 040-3, 6-4, 97255-9 #### [facility] CLIA [id number] [address] Iron/TIBC [Molar ratio] Normal [facility] Comment on above: Order Comment: Felipe [facility] Type: BLOOD SPECIMEN Ordering Facility: [facility] Address: [address] [address] Result Comment: Unab le to assay due to interference from hemolysis. Suggest reorder as clinically indicated. Performed By: #### 3 040-3, 2276-4, 72461-9 #### [facility] CLIA [id number] [address] [place] [address] [place] LIPASE BLDon 01-01-2023 Lipase [Catalytic activity/Vol] 40 U/L U/L [facility] Lipase SerPl-cCncon 01-02-20 Lipase [Catalytic activity/Vol] 40 U/L Normal 16-61 [facility] Comment on above: Order Comment: Felipe [facility] Type: BLOOD SPECIMEN Ordering Facility: [facility] Address: [address] [place] [address] Result Comment: Refe rence ranges for this patient's age group have not been established. These reference ranges reflect verified or established ranges for the adult population. Interpret these ranges with caution using the clinical context and additional reference resources. Performed By: #### 3 040-3, 2276-4, 48491-7 #### [facility] CLIA [id number] [address] tTG IgA Qn (S)on 01-01-2023 TRANSGLUTAMINASE IGA QUAL Negative Normal Negative, Test not Indicated [facility] Comment on above: Order Comment: [facility] Type: BLOOD SPECIMEN Ordering Facility: [facility] Address: [address] [place] [address] Result Comment: The following results were obtained with the [email or web address] QUANTA Lite h-tTG IgA GRIFFIN. h-tTG IgA values obtained with different manufacturers' assay methods may not be used interchangeably. The magnitude of the reported IgA levels cannot be correlated to an endpoint titer. This is used as an aid in diagnosis of celiac disease. Clinical correlation is required. Performed By: #### 3 1017-7 #### [facility] CLIA [id number] [address] [place] [address] [place] tTG IgA Ser-aCncon 3 tTG IgA Qn (S) 6 Units Normal <20 [facility] Comment on above: Order Comment: Speci men Type: BLOOD SPECIMEN Ordering Facility: [facility] Address: [address] [address] Performed By: #### 3 1017-7 #### [facility] CLIA [id number] [address] [place] [address] [place] Basophil percentageOrdered B y: Dr. Scott on 11-12-2022 Basophil percentage 0 SEEN /hpf 0-5 [facility] Bilirubin Test strip Ql (U)O rdered By: Dr. Scott on 11-12-2022 Bilirubin Ql (U) Negative Negative [facility] Emergency Department Summary on 11-12-2022 Emergency Department Summary [facility] Medical Records Department [address] [place] [address] Emergency Department Summary 11/12/22 MR#: [id number] Acct: [id number] Name: JULIAN WHITNEY Rep #: [id number] : 2005 17 From: Mark Scott MD PCP: Dr. Damien Patel MD Status:REG ER Location: ED HPI HPI - GI History of Present Illness Chief Complaint: Abd Pain Informant: patient and parent Narrative Narrative: Patient complaining of abdominal pain for about 3 days. She describes it as periumbilical. It is not moved or changed position or character. It does not radiate anywhere. She is able to eat and drink with no changes. She states sometimes eating might bother it a little bit but its not consistent. She denies acid reflux symptoms. No back pain. No change in her bowel habits or blood in the stool. No change in urination. Her last menstrual cycle was 2 weeks ago and normal. She denies pelvic pain or discharge. No history of prior abdominal pain, Crohn's disease, ulcerative colitis, irritable bowel or abdominal surgeries. PFSH PFSH Home Medications esomeprazole magnesium 20 mg capsule,delayed release (Nexium) 20 mg PO DAILY #30 caps 11/12/22 [Rx Last Taken Unknown] Allergy/AdvReac Type Severity Reaction Status Date / Time No Known Allergies Allergy Verified 11/12/22 09:26 Social History Smoking Status: Never smoker ROS ROS ED Constitutional Constitutional ED: Denies chills, fever(s), subjective or sweats ENT ENT ED: Denies rhinorrhea or sore throat Cardiovascular Cardiovascular: Denies chest pain Respiratory/Chest Respiratory/Chest: Denies cough or dyspnea Gastrointestinal Gastrointestinal: Reports abdominal pain; Denies constipation, diarrhea, melena, nausea or vomiting Genitourinary Genitourinary ED: Reports LMP (females 10-50) Details: Comment: (2 weeks ago and normal); Denies dysuria, hematuria or urinary frequency Musculoskeletal Musculoskeletal: Denies back pain or myalgias Integumentary Denies rash Neurologic Neurologic: Denies headache(s) Endocrine Endocrinology: Denies polydipsia or polyuria Hematologic/Lymphatic Hematologic/Lymphatic : Denies lymphadenopathy Allergic/Immunologic Allergic/Immunologic ED: Denies urticaria EXAM Physical Exam Const Vital Signs: 11/12/22 09:26 Temperature 96.2 F L Temperature Source Temporal Respiratory Rate 16 Blood Pressure 109/73 L Blood Pressure Mean 85 Pulse Ox 99 Oxygen Delivery Method Room Air Positive well nourished and well developed General Appearance ED: well developed and NAD; Negative for pallor HEENT Reports moist mucous membranes normocephalic and atraumatic Eyes EOMs intact bilaterally General Eye ED: Negative for pale conjunctiva or scleral icterus Neck supple Resp normal respiratory effort and clear to auscultation bilaterally Auscultation: Negative for rales, rhonchi or wheezes Cardio regular rate, regular rhythm and no murmurs GI non-tender, non-distended and no masses GI Narrative: There is no objective indication of tenderness on exam. Even when I press firmly in the periumbilical area that she describes as a source of pain she is not really tender. She does feel some pressure when I press over the bladder. She states sometimes when I press in the epigastric area she feels a little soreness but there is no objective tenderness. Certainly no rebound or guarding. I feel no mass. Auscultation: normoactive bowel sounds; Negative for hyperactive bowel sounds or hypoactive bowel sounds Palpation: soft Narrative: Patient has no CVA tenderness. She does have mild suprapubic tenderness. Back/Spine no CVA tenderness Extremity full ROM General Extremety ED: Negative for edema General Extremity: Negative for edema Neuro Sensorium / Orientation: alert Psych mental status grossly normal Skin no wounds General Skin Exam: Negative for jaundice or pallor MDM MDM MDM Narrative Medical decision making narrative: This patient has had 3 days of abdominal pain without fevers nausea vomiting change in bowel habits loss of appetite. Her exam is overall benign. I do not think imaging or CT would be necessary at this time. There is no sign of acute intra-abdominal process such as appendicitis. I do not think blood work is going to give us the answer. She has no fever nausea vomiting we would not CT her so I do not see an indication for CBC at this time. No radiation to the back. No right upper quadrant tenderness. I do not think liver function tests or lipase are needed. She most likely has some mild gastritis. With a little bit of suprapubic pressure with palpation I will check a UA. Patient's urinalysis is completely normal. No sign of infection or blood. Repeat exam (more content not included)... Normal [facility] Ketones Test strip Ql (U)Ord ered By: Dr. Scott on 11-12-2022 Ketones Ql (U) Negative Negative [facility] - Chemistry and C hemistry - challengeOrdered By: Dr. Scott on 11-12-2022 HCG ( test) Ql (U) Negative [facility] Comment on above: Very dilute urine sp ecimens, as indicated by a low specificgravity, may not contain bilingual inside sales representative levels of hCG. If is still suspected, a first morning urinespecimen should be collected 48 hours later and tested. Mucus LM Ql (Urine sed)Order ed By: Dr. Scott on 11-12-2022 Mucus Ql (Urine sed) 0 SEEN /hpf [facility] Nitrite Test strip Ql (U)Ord ered By: Dr. Scott on 11-12-2022 Nitrite Ql (U) Negative Negative [facility] ,Urineon 11-12-2022 Beta HCG ( test) Ql (U) Negative Normal [facility] Comment on above: Order Comment: COLLE CTOR TO SPECIFY Result Comment: Very dilute urine specimens, as indicated by a low specific gravity, may not contain bilingual inside sales representative levels of hCG. If is still suspected, a first morning urine specimen should be collected 48 hours later and tested. Performed By: #### L 400.7600, L400.0001 #### [facility] [address] [place], [address] Protein Test strip Ql (U)Ord ered By: Dr. Scott on 11-12-2022 Protein Ql (U) Negative Negative [facility] Squamous epithelial cells de tection in urine sediment by light microscopyOrdered By: Dr. Scott on 11-12-2022 Epithelial cells.squamous LM Ql (Urine sed) 0 SEEN /hpf - [facility] Urinalysis, Completeon 11-12 BACTERIA 0 SEEN Normal None Seen [facility] Comment on above: Order Comment: MARTY CTOR TO SPECIFY Performed By: #### L [id number], [id number] #### [facility] [address] [place], [address] EPI,SQUAMOUS 0 SEEN Normal - [facility] Comment on above: Order Comment: MARTY CTOR TO SPECIFY Performed By: #### L [id number], [id number] #### [facility] [address] [place], [address] Mucus Ql (Urine sed) 0 SEEN Normal [facility] Comment on above: Order Comment: MARTY CTOR TO SPECIFY Performed By: #### L [id number], [id number] #### [facility] [address] [place], [address] RBC 0 SEEN Normal 0-5 [facility] Comment on above: Order Comment: MARTY CTOR TO SPECIFY Performed By: #### L [id number], [id number] #### [facility] [address] [place], [address] WBC 0 SEEN Normal 0-5 [facility] Comment on above: Order Comment: COLLE CTOR TO SPECIFY Performed By: #### L [id number], [id number] #### [facility] [address] [place], [address] Urine blood detectionOrdered By: Dr. Scott on 11-12-2022 RBC Ql (U) Negative Negative [facility] RBC Ql (U) 0 SEEN /hpf 0-5 [facility] Urine clarityOrdered By: Dr. Scott on 11-12-2022 Clarity (U) Clear Clear [facility] Urine color determinationOrd ered By: Dr. Scott on 11-12-2022 Color (U) Yellow Yellow [facility] Urine glucose detectionOrder ed By: Dr. Scott on 11-12-2022 Glucose Ql (U) Normal mg/dl Normal [facility] Urine leukocyte esterase det ection by dipstickOrdered By: Dr. Scott on 11-12-2022 Leukocyte esterase Test strip Ql (U) Negative Negative [facility] Urine pHOrdered By: Dr. Mikhail antonio on 11-12-2022 pH (U) 6.0 [pH] 5.0 - 8.0 [facility] Urine sediment bacteria coun t by microscopy (number/high power field)Ordered By: Dr. Scott on 11-12-2022 Bacteria LM.HPF (Urine sed) [#/Area] 0 /[HPF] None Seen [facility] Urine specific gravity measu rementOrdered By: Dr. Scott on 11-12-2022 Specific gravity (U) [Rel density] 1.015 1.002-1.030 [facility] Urobilinogen Auto test strip Ql (U)Ordered By: Dr. Scott on 11-12-2022 Urobilinogen Ql (U) Normal mg/dl Normal [facility] Comprehensive metabolic 2000 panelon 05-27-2022 Albumin [Mass/Vol] 4.3 g/dL 3.2 - 4.5 g/dL [facility] ALP [Catalytic activity/Vol] 57 U/L 50 - 117 U/L [facility] ALT [Catalytic activity/Vol] 12 U/L 7 - 38 U/L [facility] Anion gap [Moles/Vol] 11 mmol/L 9 - 18 mmol/L [facility] AST [Catalytic activity/Vol] 19 U/L 13 - 35 U/L [facility] Bilirubin [Mass/Vol] 0.3 mg/dL 0.2 - 1 .3 mg/dL [facility] Calcium [Mass/Vol] 9.8 mg/dL 8.4 - 10. 2 mg/dL [facility] Chloride [Moles/Vol] 103 mmol/L 97 - 10 5 mmol/L [facility] CO2 [Moles/Vol] 24 mmol/L 22 - 30 mmol/L [facility] Creatinine [Mass/Vol] 0.88 mg/dL 0.58 - 0.96 mg/dL [facility] Estimated Glomerular Filtration Rate [facility] Glucose [Mass/Vol] 62 mg/dL Low 74 - 99 mg/dL [facility] Potassium [Moles/Vol] 4.5 mmol/L 3.7 - 5.1 mmol/L [facility] Protein [Mass/Vol] 7.2 g/dL 6.4 - 8.3 g/dL [facility] Sodium [Moles/Vol] 138 mmol/L 136 - 144 mmol/L [facility] Urea nitrogen [Mass/Vol] 9 mg/dL 5 - 18 mg/d L [facility] FERRITIN BLDon 05-27-2022 Ferritin [Mass/Vol] 12.6 ng/mL Low 14.7 - 2 05.1 ng/mL [facility] Iron and Iron binding capaci ty panelon 05-27-2022 Iron [Mass/Vol] 60 ug/dL 41 - 186 ug/dL [facility] Iron binding capacity [Mass/Vol] High 232 - 386 ug/dL [facility] Iron/TIBC [Molar ratio] Low 15.0 - 57.0 % [facility] T4 FREE/FREE THYROXon 2021 Free T4 [Mass/Vol] 1.1 ng/dL 0.8 - 1.5 ng/dL [facility] TSH BLDon 05-27-2022 TSH Qn 0.825 m[IU]/L 0.510 - 4.300 mIU/L [facility] VITAMIN D 25 HYDROXYon 05-27 25-hydroxyvitamin D3 [Mass/Vol] 44.3 ng/mL 31.0 - 80.0 ng/mL [facility] ACTIVATED PTTon 05-26-2022 aPTT Coag (PPP) [Time] 25.6 s 23.0 - 32.4 sec [facility] CBC W Auto Differential pane l (Bld)on 05-26-2022 Abs Immature Gran <0.04 k/uL [facility] Basophils (Bld) [#/Vol] <0.11 k/uL [facility] Basophils/100 WBC (Bld) 0.3 % [facility] Differential cell count method Nom (Bld) Auto [facility] Eosinophils (Bld) [#/Vol] 0.12 10*3/uL <0.46 k/uL [facility] Eosinophils/100 WBC (Bld) 1.8 % [facility] Erythrocyte distribution width (RBC) [Ratio] 13.6 % 11.5 - 15.0 % [facility] Hematocrit (Bld) [Volume fraction] 44.5 % 36.0 - 46.0 % [facility] Hemoglobin (Bld) [Mass/Vol] 14.3 g/dL 11.5 - 15.5 g/dL [facility] Immature Gran % 0.1 % [facility] Lymphocytes (Bld) [#/Vol] 1.54 10*3/uL 1.00 - 4.00 k/uL [facility] Lymphocytes/100 WBC (Bld) 23.0 % [facility] MCH (RBC) [Entitic mass] 27.7 pg 26. 0 - 34.0 pg [facility] MCHC (RBC) [Mass/Vol] 32.1 g/dL 30.5 - 36.0 g/dL [facility] MCV (RBC) [Entitic vol] 86.2 fL 80.0 - 100.0 fL [facility] Monocytes (Bld) [#/Vol] 0.41 10*3/uL <0.87 k/uL [facility] Monocytes/100 WBC (Bld) 6.1 % [facility] Neutrophils (Bld) [#/Vol] 4.60 10*3/uL 1.45 - 7.50 k/uL [facility] Neutrophils/100 WBC (Bld) 68.7 % [facility] Nucleated RBC (Bld) [#/Vol] <0.01 k/uL [facility] Nucleated RBC/100 WBC (Bld) [Ratio] 0.0 /100 WBC [facility] Platelet mean volume (Bld) [Entitic vol] 10.5 fL 9.0 - 12.7 fL [facility] Platelets (Bld) [#/Vol] 339 10*3/uL 150 - 400 k/uL [facility] RBC (Bld) [#/Vol] 5.16 10*6/uL 3.90 - 5.2 0 m/uL [facility] WBC (Bld) [#/Vol] 6.70 10*3/uL 3.70 - 11. 00 k/uL [facility] ECG COMPLETEon 05-26-2022 Atrial Rate 48 BPM [facility] Calculated P [place] 52 degrees [facility] Calculated R [place] 80 degrees [facility] Calculated T [place] 57 degrees [facility] P-R Interval 110 ms [facility] QRS Duration 92 ms [facility] QT Interval 420 ms [facility] QTC Calculation (Bazett) 376 ms [facility] Ventricular Rate 48 BPM [facility] PT panel Coag (PPP)on 2021 INR Coag (PPP) [Relative time] 1.0 {INR} 0.9 - 1.3 [facility] PT Coag (PPP) [Time] 10.5 s 9.7 - 1 3.0 sec [facility] TSH with reflex T4FRon 02-26 TSH with reflex T4FR 2.137 uIU/mL Normal 0.350-5.500 [facility] Comment on above: Performed By: #### T SHR #### [address] [address] Comp Metabolic Panelon 02-24 Albumin [Mass/Vol] 4.4 g/dL Normal 3.2-4.5 [facility] Comment on above: Performed By: #### C MP #### [address] [id number] ALP [Catalytic activity/Vol] 110 U/L Normal 55-240 [facility] Comment on above: Performed By: #### C MP #### [address] [id number] ALT [Catalytic activity/Vol] 15 U/L Normal 0-31 [facility] Comment on above: Performed By: #### C MP #### [address] [address] AST [Catalytic activity/Vol] 19 U/L Normal 0-31 [facility] Comment on above: Performed By: #### C MP #### [address] [address] Bili,Total 0.8 mg/dl Normal 0.0-1.0 [facility] Comment on above: Result Comment: Premature : 1 Day 1.0-6.0 mg/dl 2 Day 6.0-8.0 mg/dl 3-5 Day 10.0-15.0 mg/dl Performed By: #### C MP #### [address] [address] Calcium [Mass/Vol] 9.2 mg/dL Normal 7.6-11.0 [facility] Comment on above: Performed By: #### C MP #### [address] [address] Chloride [Moles/Vol] 101 mmol/L Normal 96-108 [facility] Comment on above: Performed By: #### C MP #### [address] [address] CO2 [Moles/Vol] 26.7 mmol/L Normal 22.0-29.0 [facility] Comment on above: Performed By: #### C MP #### [address] [place] [address] Creatinine [Mass/Vol] 0.67 mg/dL Normal 0.50-0.80 [facility] Comment on above: Result Comment: Premature 0.3-1.0 mg/dL Performed By: #### C MP #### [address] [id number] Glucose [Mass/Vol] 84 mg/dL Normal 70-99 [facility] Comment on above: Result Comment: Criteria for Diagnosis of Diabetes(Effective 03/17/11): Fasting specimen (no caloric intake for at least 8 hours). <100 mg/dl Normal 100-125 mg/dl Increased Risk for Diabetes >125 mg/dl Diagnostic for Diabetes Random Glucose (any time of day without regard to last meal). >=200 mg/dl plus Classic Symptoms of Diabetes Performed By: #### C MP #### [address] [address] Potassium [Moles/Vol] 3.4 mmol/L Normal 3.3-5.1 [facility] Comment on above: Performed By: #### C MP #### [address] [address] Protein [Mass/Vol] 7.2 g/dL Normal 6.0-8.0 [facility] Comment on above: Performed By: #### C MP #### [address] [address] Sodium [Moles/Vol] 138 mmol/L Normal 133-145 [facility] Comment on above: Performed By: #### C MP #### [address] [address] Urea nitrogen [Mass/Vol] 9 mg/dL Normal 4-19 [facility] Comment on above: Performed By: #### C MP #### [address] [address] Complete Blood Counton 02-24 Differential Complete Automated Normal [facility] Comment on above: Performed By: #### C BC #### [address] [address] Basophils/100 WBC (Bld) 0.30 % Normal 0.00-1.00 [facility] Comment on above: Performed By: #### C BC #### [address] [address] Eosinophils/100 WBC (Bld) 2.40 % Normal 0.00-3.00 [facility] Comment on above: Performed By: #### C BC #### [address] [address] Erythrocyte distribution width (RBC) [Ratio] 13.1 % Normal 0.0-14.4 [facility] Comment on above: Performed By: #### C BC #### [address] [address] Hematocrit (Bld) [Volume fraction] 41.3 % Normal 37.0-46.0 [facility] Comment on above: Performed By: #### C BC #### [address] [address] Hemoglobin (Bld) [Mass/Vol] 13.8 g/dL Normal 12.0-15.0 [facility] Comment on above: Performed By: #### C BC #### [address] [address] Immature granulocytes/100 WBC (Bld) 0.30 % Normal [facility] Comment on above: Result Comment: Syl ture Granulocyte Percent includes promyelocytes, myelocytes, and metamyelocytes. IG% > 1.0 indicates a left shift is present. With automated differentials, bands are included in the neutrophil count and not in the Immature Granulocyte Percent. Performed By: #### C BC #### [address] [address] Lymphocytes/100 WBC (Bld) 30.2 % Normal 25.0-45.0 [facility] Comment on above: Performed By: #### C BC #### [address] [address] MCH (RBC) [Entitic mass] 27.8 pg Normal 25.0-35.0 [facility] Comment on above: Performed By: #### C BC #### [address] [address] MCHC (RBC) [Mass/Vol] 33.4 % Normal 31.0-37.0 [facility] Comment on above: Performed By: #### C BC #### [address] [address] MCV (RBC) [Entitic vol] 83.1 fL Normal 78.0-96.0 [facility] Comment on above: Performed By: #### C BC #### [address] [address] Monocytes/100 WBC (Bld) 7.30 % High 3.00-6.00 [facility] Comment on above: Performed By: #### C BC #### [address] [address] Neutrophils (Bld) [#/Vol] 4.2 10*3/uL Normal 1.8-7.5 [facility] Comment on above: Performed By: #### C BC #### [address] [address] Neutrophils/100 WBC (Bld) 59.5 % Normal 34.0-64.0 [facility] Comment on above: Performed By: #### C BC #### [address] [address] Nucleated RBC/100 WBC (Bld) [Ratio] 0.0 % Normal -1.0-0.0 [facility] Comment on above: Performed By: #### C BC #### [address] [address] Platelet mean volume (Bld) [Entitic vol] 9.6 fL Normal [facility] Comment on above: Result Comment: MPV is platelet range and age dependent Performed By: #### C BC #### [place] [address] Platelets (Bld) [#/Vol] 332 10*3/uL Normal 150-450 [facility] Comment on above: Performed By: #### C BC #### [place] [address] RBC (Bld) [#/Vol] 4.97 10E12/L High 4.10-4.80 [facility] Comment on above: Performed By: #### C BC #### [place] [address] WBC (Bld) [#/Vol] 7.1 10*3/uL Normal 4.5-13.0 [facility] Comment on above: Performed By: #### C BC #### [place] [address] eGFRon 02-25-2020 GFR/1.73 sq M.predicted MDRD (S/P/Bld) [Vol rate/Area] 104.79 Normal [facility] Comment on above: Result Comment: Refe rence range: > 3 months: >90 ml/min/1.73m^2 Ref. Range change effective 01/04/2018 Performed By: #### E GFR #### [place] [address] Coma Panelon 02-24-2020 Coma Panel: ----- Normal [facility] Comment on above: Result Comment: SERU M VOLATILE PANEL: NONE DETECTED SERUM DRUG SCREEN: Acetaminophen 48.4 mg/L 10.0-30.0 mg/L Tri Antidepressant Screen NEGATIVE Drugs in Serum NONE DETECTED URINE DRUG SCREEN: Salicylates, Ur NEGATIVE Amphetamines NEGATIVE Barbiturates NEGATIVE Benzodiazepines NEGATIVE Cocaine NEGATIVE Methadone NEGATIVE Opiates NEGATIVE Oxycodone/Oxymorphone NEGATIVE PCP NEGATIVE Urine Screen Comment : The following drugs or drug groups have been screened for by Immunoassay at the following thresholds: Amphetamine class (1000 ng/mL), Barbiturate (200 ng/ml), Benzodiazepines (200ng/mL), Cocaine (300 ng/mL), Methadone (300 ng/mL), Opiates (300 ng/mL), Oxycodone (100 ng/mL), PCP (25 ng/mL), and Tricyclic Antidepressants (300 ng/mL). NOTE: These results are for medical treatment only. Analysis performed using non-forensic procedures. DRUGS IN URINE: NONE DETECTED URINE DRUG CONFIRMATION: Unless reported present, the following were tested for but not detected. SERUM: Acetone, Acetaminophen, Barbiturates, Carbamazepine, Citalopram, Ethanol, Isopropanol, Lidocaine, Methanol, Phenytoin and Tricyclic Antidepressants. URINE: Amphetamine, Barbiturates, Benzodiazepines, Bupropion, Carbamazepine, Chlorpheniramine, Citalopram, Cocaine, Codeine, Dextromethorphan, Diphenhydramine, Doxylamine, Ecstasy, Ephedrine, Hydrocodone, Hydromorphone, Lidocaine, Methadone, Methamphetamine, Methylphenidate, Morphine, Oxycodone, PCP, Phenothiazines, Phenytoin, Salicylates, Sertraline and Venlafaxine. NOTE: These results are for medical treatment only. Analysis performed using non-forensic procedures. Unless reported present, the following were tested for but not detected. Serum: Acetone, Acetaminophen, Barbiturates, Benzodiazepines, Bupropion, Carbamazepine, Carisoprodal, Citalopram, Ethanol, Isopropanol, Lidocaine, Meperidine and metab., Meprobamate, Methanol, Pentazocine, Phenytoin, Sertraline, Tricyclic Antidepressants, and Venlafaxine. Urine: Amoxapine, Amphetamine, Barbiturates, Benzodiazepines, Bupropion, Carbamazepine, Carisoprodal, Chlorpheniramine, Citalopram, Cocaine, Codeine, Dextromethorphan, Ecstasy, Ephedrine, Lidocaine, Meperidine, Meprobamate, Methadone, Methamphetamine, Morphine, Oxycodone, Pentazocine, PCP, Phenothiazines, Phenylpropanolamine, Phenytoin, Salicylates, Sertraline, and Venlafaxine. NOTE: These results are for medical treatment only. Analysis performed using non-forensic procedures. Testing referred to [facility]. Performed By: #### C ALLISON #### [facility] [address] [place] [address] Acetaminophenon 02-23-2020 Acetaminophen [Mass/Vol] 120 ug/mL Off scale high 10-25 [facility] Comment on above: Order Comment: Peak, Trough, or Random?->Peak Performed By: #### A CETN #### [facility] [address] [place] [address] ED Provider Progress Noteon 02-23-2020 [employer] Authentication Interface Message Text Julian Whitney : 2005 Chief Complaint Patient presents with Drug Overdose P.I.R.C. No Known Allergies DOS: 02/23/2020 Julian is a 14 y.o. female with anxiety and depression presenting with a tylenol ingestion in a suicide attempt. She took about 15 tabs of 500mg tylenol at 0200. She notes that she has struggled with anxiety and depression for about 1 year, during which time she has seen doctors but not been on medications. She was was talking with an ex this evening and he said some triggering things, which caused her to want to take the tylenol. She notes she did not plan to take the tylenol. It was a spur of the moment decision. She did take it with the intention of ending her life. She denies suicidal ideation at this time. She notes tonight was the first time she ever had these thoughts. She denies homicidal ideation. Of note, no recent colds or illnesses. No dry skin or hair loss. No weight changes. No medications. Review of Systems Constitutional: Negative for fatigue and fever. HENT: Negative for congestion, nosebleeds and sore throat. Respiratory: Negative for cough and shortness of breath. Gastrointestinal: Negative for abdominal pain, constipation, diarrhea, nausea and vomiting. Endocrine: Negative for polyuria. Genitourinary: Negative for decreased urine volume and dysuria. Musculoskeletal: Negative for arthralgias and joint swelling. Skin: Negative for rash. Neurological: Positive for headaches (earlier in the evening - since resolved). Psychiatric/Behaviora l: Positive for suicidal ideas. History reviewed. No pertinent past medical history. History reviewed. No pertinent surgical history. Pediatric History Patient Parents/Guardians KOFI WHITNEY (Mother/Guardian) DAVID WHITNEY (Father/Guardian) Other Topics Concern Not on file Social History Narrative Not on file ED Triage Vitals Date and Time Temp Temp src Pulse Resp BP SpO2 Weight User 02/23/20 0716 36.4 C (97.5 F) Temporal 59 16 92/49 97 % -- HLW 02/23/20 0552 36.8 C (98.2 F) Temporal 81 18 122/67 100 % 69.6 kg RAN Physical Exam Vitals signs and nursing note reviewed. Constitutional: General: She is not in acute distress. Appearance: Normal appearance. She is normal weight. She is not ill-appearing. HENT: Head: Normocephalic and atraumatic. Nose: Nose normal. No congestion. Mouth/Throat: Mouth: Mucous membranes are moist. Eyes: General: No scleral icterus. Right eye: No discharge. Left eye: No discharge. Extraocular Movements: Extraocular movements intact. Conjunctiva/sclera: Conjunctivae normal. Neck: Musculoskeletal: Normal range of motion and neck supple. Cardiovascular: Rate and Rhythm: Normal rate and regular rhythm. Pulses: Normal pulses. Heart sounds: Normal heart sounds. No murmur. Pulmonary: Effort: Pulmonary effort is normal. No respiratory distress. Breath sounds: Normal breath sounds. Abdominal: General: Bowel sounds are normal. There is no distension. Palpations: Abdomen is soft. Tenderness: There is no abdominal tenderness. Skin: General: Skin is warm. Capillary Refill: Capillary refill takes less than 2 seconds. Neurological: General: No focal deficit present. Mental Status: She is alert. Psychiatric: Mood and Affect: Mood normal. Behavior: Behavior normal. Thought Content: Thought content normal. Procedures MDM ED Course: Diagnosis' considered: tylenol ingestion with SI Labs/Radiology: Recent Results (from the past 24 hour(s)) Acetaminophen-[place] Collection Time: 02/23/20 6:19 AM Result Value Ref Range Acetaminophen 120 (HH) 10 - 25 ug/mL Salicylate-[place] Collection Time: 02/23/20 6:19 AM Result Value Ref Range Salicylate None detected 0 - 30 mg/dL Consults: Consults Ordered Procedures Consult to Clinical Pharmacology/Toxicolo gy Medical Record/Transferring Institution Record: [facility] Serum - qual - negative Tylenol level (1.5 hour level) - 160.5 CBC with differential WBC 8.2 RBC 4.88 Hgb 13.3 Hct 40 MCV 82 MCH 27.3 MCHC 33.3 RDW 37.5 Platelets 292 MPV 9.3 Immature granulocytes 0.2 Neutrophils 61.9 Lymphocytes 28.1 Monocytes 7.9 Eosinophils 1.7 Basophils 0.2 CMP Na 139 K 3.3 Cl 103 CO2 25 Anion gap 11 BUN 11 Creatinine 0.76 Glucose 150 Ca 9 Total bilirubin 0.3 AST 15 ALT 20 Alk phos 121 Total protein 7.1 Albumin 3.9 Globulin 3.2 Salicylate level (1.5 hour level) - <1.7 Urine drug screen Opiates - negative Methadone - negative Barbiturates - negative Phencyclidine - negative Amphetamines - negative Methamphetamin - negative Benzodiazepines - negative Cocaine - negative Cannabinoids - negative Treatment/Reassessmen t: Julian is a 14 y.o. female with anxiety and depresstion presenting with a tylenol ingestion in a suicidal ideation. She currently denies SI and HI. Obtained tylenol an salicylate levels at 4 hours after ingestion, which were 120 and none detected respectively. EKG showed sinus bradycardia to a rate of 55. No QTc prolongation present. Discussed the case with pharm/tox who said she is clear from a toxicologic perspective. She was having bradycardic events to the 40's and required a bolus of fluid. The case was discussed with the Adolescent medicine attending and she was admitted to the floor for further management. Abimbola Lozada MD Pediatric Resident - PGY2 Pager: [phone] 02/23/2020 7:29 AM Encounter Documentation/Handoff : Final Clinical Impression/Diagnosis as of Feb 22 1417 Bradycardia Intentional acetaminophen poisoning, initial encounter Suicidal ideation I personally performed arellano portions of the history and physical examination of this patient and discussed the management plan with the resident. I reviewed the resident's note. The findings and the plan of care are set forth above. 14 yo female presenting from OSH after ingestion of tylenol in attempt at self harm around 2 AM. Patient seen at OSH with workup performed at 3 AM showing elevation of tylenol to 160. Patient shrugged shoulders when asked why she did it and when asked if it was to harm self, shook her head yes. Denies cough, rn, diarrhea. Has had some nausea and vomiting after ingestion but none before. Upon arrival vitals normal for age. Lungs ctab, heart rrr, abd soft nt/nd. EKG performed which was normal. Salicylates negative, tylenol level of 120 which does NOT meet NAC protocol and patient cleared by pharm/tox. Patient changed over to Dr. Styles pending [facility] evaluation. Frank Kc MD 2:18 PM 02/23/2020 The care of the patient was signed out to me by the previous provider. Care was continued as per plan provided. Plan modified as needed to meet the need and provide appropriate care to the patient. All labs if any were reviewed. Resident, if involved continued the care with my supervision. D/w mom options Normal [facility] Salicylateon 02-23-2020 Salicylate None detected Normal 0-30 [facility] Comment on above: Order Comment: Peak, Trough, or Random?->Peak Performed By: #### S ALI #### [place] [address] Vital Signs Date Time Vital Sign Value Performing Clinician Facility 11-17-2024 13:18-0500 Body temperature 97.59 [degF] Krislyn Aberegg PA Work Phone: [facility] 11-17-2024 13:18-0500 Body weight 65 kg Krislyn Aberegg PA Work Phone: [facility] 11-17-2024 13:18-0500 Diastolic blood pressure 71 mm[Hg] Krislyn Aberegg PA Work Phone: [facility] 11-17-2024 13:18-0500 Heart rate 96 /min Krislyn Aberegg PA Work Phone: [facility] 11-17-2024 13:18-0500 Respiratory rate 18 /min Krislyn Aberegg PA Work Phone: [facility] 11-17-2024 13:18-0500 SaO2% (BldA) [Mass fraction] 100 % Krislyn Aberegg PA Work Phone: [facility] 11-17-2024 13:18-0500 Systolic blood pressure 108 mm[Hg] Avani Justingg PA Work Phone: [facility] 10-13-2024 13:02-0500 Body temperature 97.2 [degF] Camacho [facility] RHEOSTAT ASSEMBLER.DIGITAL SPECIALIST Work Phone: [facility] 10-13-2024 13:02-0500 Body weight 64.1 kg [facility] RHEOSTAT ASSEMBLER.DIGITAL SPECIALIST Work Phone: [facility] 10-13-2024 13:02-0500 Diastolic blood pressure 76 mm[Hg] Camacho [facility] RHEOSTAT ASSEMBLER.DIGITAL SPECIALIST Work Phone: [facility] 10-13-2024 13:02-0500 Heart rate 83 /min [facility] RHEOSTAT ASSEMBLER.DIGITAL SPECIALIST Work Phone: [facility] 10-13-2024 13:02-0500 Respiratory rate 18 /min [facility] RHEOSTAT ASSEMBLER.DIGITAL SPECIALIST Work Phone: [facility] 10-13-2024 13:02-0500 SaO2% (BldA) [Mass fraction] 100 % [facility] RHEOSTAT ASSEMBLER.DIGITAL SPECIALIST Work Phone: [facility] 10-13-2024 13:02-0500 Systolic blood pressure 110 mm[Hg] [facility] RHEOSTAT ASSEMBLER.DIGITAL SPECIALIST Work Phone: [facility] 09-21-2024 13:40-0500 Body temperature 97.7 [degF] Edith Athy PA-C Work Phone: [facility] 09-21-2024 13:40-0500 Body weight 63.4 kg Edith Athy PA-C Work Phone: [facility] 09-21-2024 13:40-0500 Diastolic blood pressure 68 mm[Hg] Edith Athy PA-C Work Phone: [facility] 09-21-2024 13:40-0500 Heart rate 98 /min Edith Athy PA-C Work Phone: [facility] 09-21-2024 13:40-0500 Respiratory rate 16 /min Edith Athy PA-C Work Phone: [facility] 09-21-2024 13:40-0500 SaO2% (BldA) [Mass fraction] 99 % Edith Athy PA-C Work Phone: [facility] 09-21-2024 13:40-0500 Systolic blood pressure 102 mm[Hg] Edith Athy PA-C Work Phone: [facility] 07-21-2024 15:18-0400 Diastolic blood pressure 54 mm[Hg] Brianda Block APRN.DIGITAL SPECIALIST Work Phone: [facility] 07-21-2024 15:18-0400 Systolic blood pressure 96 mm[Hg] Brianda Block APRN.DIGITAL SPECIALIST Work Phone: [facility] 07-21-2024 14:33-0400 Body weight 61.69 kg Brianda Block APRN.DIGITAL SPECIALIST Work Phone: [facility] 07-06-2024 15:41-0400 Body weight 63.32 kg Brianda Block APRN.DIGITAL SPECIALIST Work Phone: [facility] 07-06-2024 15:41-0400 Diastolic blood pressure 56 mm[Hg] Brianda Block APRN.DIGITAL SPECIALIST Work Phone: [facility] 07-06-2024 15:41-0400 Systolic blood pressure 110 mm[Hg] Brianda Block APRN.DIGITAL SPECIALIST Work Phone: [facility] 02-04-2024 10:52-0400 Body height 170.2 cm Carolina Jordan MD Work Phone: [facility] 02-04-2024 10:52-0400 Body mass index (BMI) [Percentile] Per age and sex 16.53 % Carolina Jordan MD Work Phone: [facility] 02-04-2024 10:52-0400 Body mass index (BMI) [Ratio] 18.94 kg/m2 Carolina Jordan MD Work Phone: [facility] 02-04-2024 10:52-0400 Body temperature 98.91 [degF] Carolina Jordan MD Work Phone: [facility] 02-04-2024 10:52-0400 Body weight 54.84 kg Carolina Jordan MD Work Phone: [facility] 02-04-2024 10:52-0400 Diastolic blood pressure 68 mm[Hg] Carolina Jordan MD Work Phone: [facility] 02-04-2024 10:52-0400 Heart rate 84 /min Carolina Jordan MD Work Phone: [facility] 02-04-2024 10:52-0400 Respiratory rate 18 /min Carolina Jordan MD Work Phone: [facility] 02-04-2024 10:52-0400 SaO2% (BldA) [Mass fraction] 100 % Carolina Jordan MD Work Phone: [facility] 02-04-2024 10:52-0400 Systolic blood pressure 106 mm[Hg] Carolina Jordan MD Work Phone: [facility] 01-04-2024 13:05-0400 Body height 169.[address] [facility] 01-04-2024 13:05-0400 Body mass index (BMI) [Percentile] Per age and sex 9.72 % Rosalina Byrd RD [facility] 01-04-2024 13:05-0400 Body weight 52.[address] [facility] 12-03-2023 10:10-0500 Body height 169.5 cm Carolina Jordan MD Work Phone: [facility] 12-03-2023 10:10-0500 Body mass index (BMI) [Percentile] Per age and sex 21.28 % Carolina Jordan MD Work Phone: [facility] 12-03-2023 10:10-0500 Body temperature 98.8 [degF] Carolina Jordan MD Work Phone: [facility] 12-03-2023 10:10-0500 Body weight 55.38 kg Carolina Jordan MD Work Phone: [facility] 12-03-2023 10:10-0500 Diastolic blood pressure 55 mm[Hg] Carolina Jordan MD Work Phone: [facility] 12-03-2023 10:10-0500 Heart rate 72 /min Carolina Jordan MD Work Phone: [facility] 12-03-2023 10:10-0500 Respiratory rate 19 /min Carolina Jordan MD Work Phone: [facility] 12-03-2023 10:10-0500 SaO2% (BldA) [Mass fraction] 98 % Carolina Jordan MD Work Phone: [facility] 12-03-2023 10:10-0500 Systolic blood pressure 104 mm[Hg] Carolina Jordan MD Work Phone: [facility] 11-24-2023 10:11-0500 Body height 169.5 cm Mark Sheehan MD Work Phone: [facility] 11-24-2023 10:11-0500 Body mass index (BMI) [Percentile] Per age and sex 19.18 % Mark Sheehan MD Work Phone: [facility] 11-24-2023 10:11-0500 Body temperature 98.2 [degF] Mark Sheehan MD Work Phone: [facility] 11-24-2023 10:11-0500 Body weight 54.9 kg Mark Sheehan MD Work Phone: [facility] 11-24-2023 10:11-0500 Diastolic blood pressure 80 mm[Hg] Mark Sheehan MD Work Phone: [facility] 11-24-2023 10:11-0500 Heart rate 83 /min Mark Sheehan MD Work Phone: [facility] 11-24-2023 10:11-0500 Respiratory rate 20 /min Mark Sheehan MD Work Phone: [facility] 11-24-2023 10:11-0500 SaO2% (BldA) [Mass fraction] 99 % Mark Sheehan MD Work Phone: [facility] 11-24-2023 10:11-0500 Systolic blood pressure 130 mm[Hg] Mark Sheehan MD Work Phone: [facility] 06-15-2023 11:45-0400 Body height 167.64 cm [facility] 06-15-2023 11:45-0400 Body mass index (BMI) [Percentile] Per age and sex 33 % [facility] 06-15-2023 11:45-0400 Body mass index (BMI) [Ratio] 20 kg/m2 [facility] 06-15-2023 11:45-0400 Body temperature 97 [degF] [facility] 06-15-2023 11:45-0400 Body weight 56.24 kg [facility] 06-15-2023 11:45-0400 Diastolic blood pressure 91 mm[Hg] [facility] 06-15-2023 11:45-0400 Heart rate 79 /min [facility] 06-15-2023 11:45-0400 Respiratory rate 18 /min [facility] 06-15-2023 11:45-0400 SaO2% (BldA) [Mass fraction] 99 % [facility] 06-15-2023 11:45-0400 Systolic blood pressure 130 mm[Hg] [facility] 06-12-2023 07:49-0400 Body height 170.2 cm Breanna Rodrigues MD Work Phone: [facility] 06-12-2023 07:49-0400 Body mass index (BMI) [Percentile] Per age and sex 50.72 % Breanna Rodrigues MD Work Phone: [facility] 06-12-2023 07:49-0400 Body temperature 97.5 [degF] Breanna Rodrigues MD Work Phone: [facility] 06-12-2023 07:49-0400 Body weight 61.69 kg Breanna Rodrigues MD Work Phone: [facility] 06-12-2023 07:49-0400 Diastolic blood pressure 50 mm[Hg] Breanna Rodrigues MD Work Phone: [facility] 06-12-2023 07:49-0400 Heart rate 60 /min Breanna Rodrigues MD Work Phone: [facility] 06-12-2023 07:49-0400 Respiratory rate 20 /min Breanna Rodrigues MD Work Phone: [facility] 06-12-2023 07:49-0400 Systolic blood pressure 98 mm[Hg] Breanna Rodrigues MD Work Phone: [facility] 01-01-2023 12:56-0400 Body height 169.9 cm Carolina Jordan MD Work Phone: [facility] 01-01-2023 12:56-0400 Body mass index (BMI) [Percentile] Per age and sex 58.62 % Carolina Jordan MD Work Phone: [facility] 01-01-2023 12:56-0400 Body temperature 99.39 [degF] Carolina Jordan MD Work Phone: [facility] 01-01-2023 12:56-0400 Body weight 62.96 kg Carolina Jordan MD Work Phone: [facility] 01-01-2023 12:56-0400 Diastolic blood pressure 64 mm[Hg] Carolina Jordan MD Work Phone: [facility] 01-01-2023 12:56-0400 Heart rate 60 /min Carolina Jordan MD Work Phone: [facility] 01-01-2023 12:56-0400 Respiratory rate 18 /min Carolina Jordan MD Work Phone: [facility] 01-01-2023 12:56-0400 SaO2% (BldA) [Mass fraction] 97 % Carolina Jordan MD Work Phone: [facility] 01-01-2023 12:56-0400 Systolic blood pressure 92 mm[Hg] Carolina Jordan MD Work Phone: [facility] 12-04-2022 18:56-0500 Body temperature 98.71 [degF] Ramin Plunkett MD Work Phone: [facility] 12-04-2022 18:56-0500 Body weight 64.64 kg Ramin Plunkett MD Work Phone: [facility] 12-04-2022 18:56-0500 Diastolic blood pressure 74 mm[Hg] Ramin Plunkett MD Work Phone: [facility] 12-04-2022 18:56-0500 Heart rate 72 /min Ramin Plunkett MD Work Phone: [facility] 12-04-2022 18:56-0500 Systolic blood pressure 110 mm[Hg] Ramin Plunkett MD Work Phone: [facility] 11-12-2022 09:26-0500 Body height 167.64 cm [facility] 11-12-2022 09:26-0500 Body mass index (BMI) [Percentile] Per age and sex 67.4 % [facility] 11-12-2022 09:26-0500 Body mass index (BMI) [Ratio] 22.6 kg/m2 [facility] 11-12-2022 09:26-0500 Body temperature 96.2 [degF] [facility] 11-12-2022 09:26-0500 Body weight 63.5 kg [facility] 11-12-2022 09:26-0500 Diastolic blood pressure 73 mm[Hg] [facility] 11-12-2022 09:26-0500 Respiratory rate 16 /min [facility] 11-12-2022 09:26-0500 SaO2% (BldA) [Mass fraction] 99 % [facility] 11-12-2022 09:26-0500 Systolic blood pressure 109 mm[Hg] [facility] 11-12-2022 08:47-0500 Body temperature 97.59 [degF] Avani ZACARIAS Work Phone: [facility] 11-12-2022 08:47-0500 Body weight 65.68 kg Avani ZACARIAS Work Phone: [facility] 11-12-2022 08:47-0500 Diastolic blood pressure 74 mm[Hg] Avani Polancoeregg PA Work Phone: [facility] 11-12-2022 08:47-0500 Heart rate 64 /min Krislyn Aberegg PA Work Phone: [facility] 11-12-2022 08:47-0500 Respiratory rate 21 /min Krislyn Aberegg PA Work Phone: [facility] 11-12-2022 08:47-0500 SaO2% (BldA) [Mass fraction] 98 % Krislyn Aberegg PA Work Phone: [facility] 11-12-2022 08:47-0500 Systolic blood pressure 100 mm[Hg] Krislyn Aberegg PA Work Phone: [facility] 09-09-2022 11:33-0500 Body weight 63.5 kg Brianda Block APRN.DIGITAL SPECIALIST Work Phone: [facility] 09-09-2022 11:33-0500 Diastolic blood pressure 60 mm[Hg] Brianda Block APRN.DIGITAL SPECIALIST Work Phone: [facility] 09-09-2022 11:33-0500 Systolic blood pressure 102 mm[Hg] Brianda Block APRN.DIGITAL SPECIALIST Work Phone: [facility] 06-28-2022 09:29-0400 Body height 168.5 cm Mark Sheehan MD Work Phone: [facility] 06-28-2022 09:29-0400 Body mass index (BMI) [Percentile] Per age and sex 66.7 % Mark Sheehan MD Work Phone: [facility] 06-28-2022 09:29-0400 Body temperature 97.81 [degF] Mark Sheehan MD Work Phone: [facility] 06-28-2022 09:29-0400 Body weight 63.5 kg Mark Sheehan MD Work Phone: [facility] 06-28-2022 09:29-0400 Diastolic blood pressure 73 mm[Hg] Mark Sheehan MD Work Phone: [facility] 06-28-2022 09:29-0400 Heart rate 73 /min Mark Sheehan MD Work Phone: [facility] 06-28-2022 09:29-0400 Respiratory rate 20 /min Mark Sheehan MD Work Phone: [facility] 06-28-2022 09:29-0400 SaO2% (BldA) [Mass fraction] 97 % Mark Sheehan MD Work Phone: [facility] 06-28-2022 09:29-0400 Systolic blood pressure 109 mm[Hg] Mark Sheehan MD Work Phone: [facility] 06-12-2022 12:02-0400 Body height 168.4 cm Breanna Rodrigues MD Work Phone: [facility] 06-12-2022 12:02-0400 Body mass index (BMI) [Percentile] Per age and sex 67.07 % Breanna Rodrigues MD Work Phone: [facility] 06-12-2022 12:02-0400 Body temperature 97.2 [degF] Breanna Rodrigues MD Work Phone: [facility] 06-12-2022 12:02-0400 Body weight 63.5 kg Breanna Rodrigues MD Work Phone: [facility] 06-12-2022 12:02-0400 Diastolic blood pressure 54 mm[Hg] Breanna Rodrigues MD Work Phone: [facility] 06-12-2022 12:02-0400 Heart rate 84 /min Breanna Rodrigues MD Work Phone: [facility] 06-12-2022 12:02-0400 Respiratory rate 18 /min Breanna Rodrigues MD Work Phone: [facility] 06-12-2022 12:02-0400 Systolic blood pressure 100 mm[Hg] Breanna Rodrigues MD Work Phone: [facility] 06-10-2022 13:54-0400 Body height 169 cm Damien Patel MD Work Phone: [facility] 06-10-2022 13:54-0400 Body mass index (BMI) [Percentile] Per age and sex 66.53 % Damien Patel MD Work Phone: [facility] 06-10-2022 13:54-0400 Body temperature 98.49 [degF] Damien Patel MD Work Phone: [facility] 06-10-2022 13:54-0400 Body weight 63.78 kg Damien Patel MD Work Phone: [facility] 06-10-2022 13:54-0400 Diastolic blood pressure 72 mm[Hg] Damien Patel MD Work Phone: [facility] 06-10-2022 13:54-0400 Heart rate 62 /min Damien Patel MD Work Phone: [facility] 06-10-2022 13:54-0400 Respiratory rate 16 /min Damien Patel MD Work Phone: [facility] 06-10-2022 13:54-0400 Systolic blood pressure 112 mm[Hg] Damien Patel MD Work Phone: [facility] 05-26-2022 10:49-0400 Body height 169.7 cm Janette Pinto MD Work Phone: [facility] 05-26-2022 10:49-0400 Body mass index (BMI) [Percentile] Per age and sex 73.97 % Janette Pinto MD Work Phone: [facility] 05-26-2022 10:49-0400 Body temperature 97.7 [degF] Janette Pinto MD Work Phone: [facility] 05-26-2022 10:49-0400 Body weight 66.79 kg Janette Pinto MD Work Phone: [facility] 05-26-2022 10:49-0400 Respiratory rate 18 /min Janette Pinto MD Work Phone: [facility] Encounters Encounter Date Encounter Type Care Provider Facility Start: 11-17-2024 End: 11-17-2024 ambulatory HUGO ARIAS Facility:[facility] Start: 11-17-2024 End: 11-17-2024 Patient encounter procedure Avani ZACARIAS Work Phone: [facility] Comment on above: Eye irritation (Prim meghan Dx) Start: 10-13-2024 End: 10-13-2024 [facility] Facility:[facility] Start: 10-13-2024 End: 10-13-2024 Office outpatient visit 15 minutes Camacho Scott APRN.DIGITAL SPECIALIST Work Phone: [facility] Comment on above: Viral illness (Prima ry Dx); Hearing loss due to cerumen impaction, right Start: 09-21-2024 End: 09-21-2024 [facility] Facility:[facility] Start: 09-21-2024 End: 09-21-2024 Patient encounter procedure Edith Bergeron PA-C Work Phone: [facility] Comment on above: Sore throat (Primary Dx); Otalgia of both ears Start: 07-21-2024 End: 07-21-2024 [facility] Facility:[facility] Start: 07-21-2024 End: 07-21-2024 Patient encounter procedure Brianda Block APRN.DIGITAL SPECIALIST Work Phone: OB/Gynecology Comment on above: Insertion of implant able subdermal contraceptive (Primary Dx) Start: 07-06-2024 End: 07-06-2024 [facility] Facility:[facility] Start: 07-06-2024 End: 07-06-2024 Patient encounter procedure Brianda Block APRN.DIGITAL SPECIALIST Work Phone: OB/Gynecology Comment on above: Dysmenorrhea (Primar y Dx); General counseling and advice for contraceptive management; Acne vulgaris Start: 04-28-2024 Refill Noelle matias MD Work Phone: [facility] Gastroenterology Comment on above: Refill Request Start: 02-04-2024 End: 02-04-2024 [facility] Facility:[facility] Start: 02-04-2024 End: 02-04-2024 Patient encounter procedure Carolina Jordan MD Work Phone: Pediatric Gastroenterology Comment on above: Generalized abdomina l pain (Primary Dx); Nausea; Dyspepsia Start: 01-11-2024 Refill Carolina Jordan MD Work Phone: [facility] Comment on above: Refill Request Start: 01-04-2024 End: 01-04-[address] [facility] Comment on above: Assessment; Patient Education Start: 12-03-2023 End: 12-03-2023 ambulatory CAROLINA JORDAN Facility:[facility] Start: 12-03-2023 End: 12-03-2023 Patient encounter procedure Carolina Jordan MD Work Phone: Pediatric Gastroenterology Comment on above: Abnormal weight loss (Primary Dx); Dyspepsia; Generalized abdominal pain Start: 11-26-2023 End: 11-26-2023 ambulatory [facility] Facility:[facility] Start: 11-24-2023 End: 11-26-2023 ambulatory [facility] Facility:[facility] Start: 11-24-2023 End: 11-24-2023 Patient encounter procedure Mark Sheehan MD Work Phone: Pediatric Cardiology Comment on above: Vasovagal syncope (P rimary Dx); Family history of Mxdsg-Hvoasepvg-Nowpq (WPW) syndrome Start: 08-04-2023 End: 08-04-2023 Emergency department patient visit Bradly Reodica Facility:[facility] Start: 06-15-2023 End: 06-15-2023 Emergency department patient visit Dash Vazquez Facility:[facility] Start: 06-15-2023 End: 06-15-2023 Emergency department patient visit [facility] Work Phone: Start: 06-15-2023 End: 06-15-2023 Patient encounter procedure Brit Painter APRN.DIGITAL SPECIALIST Work Phone: [facility] Comment on above: Syncope, unspecified syncope type (Primary Dx) Start: 06-12-2023 End: 06-12-2023 Patient encounter procedure Breanna Rodrigues MD Work Phone: [facility] [place] Comment on above: Encounter for routin e child health examination without abnormal findings (Primary Dx); Low ferritin level Start: 06-12-2023 End: 06-12-2023 Patient encounter status Breanna Rodrigues MD Work Phone: [facility] Work Phone: Start: 02-18-2023 Orders Only Carolina Jordan MD Work Phone: [facility] [place] Comment on above: question regarding a bdominal pain follo up Abdominal Pain Start: 01-09-2023 Orders Only Carolina Jordan MD Work Phone: Peds Gastroenterology Start: 01-07-2023 Telephone encounter Carolina Jordan MD Work Phone: Pediatric Gastroenterology Comment on above: Patient Update Start: 01-01-2023 End: 01-02-2023 ambulatory BREANNA RODRIGUES Facility:[facility] Start: 01-01-2023 End: 01-01-2023 Patient encounter procedure Carolina Jordan MD Work Phone: Pediatric Gastroenterology Comment on above: Generalized abdomina l pain (Primary Dx); Periumbilical abdominal pain Start: 12-24-2022 Telephone encounter Breanna dejesus MD Work Phone: [facility] Comment on above: continuing abdominal pain Start: 12-08-2022 Refill Breanna Rodrigues MD Work Phone: [facility] [place] Comment on above: Refill Request Start: 12-04-2022 End: 12-04-2022 Office outpatient visit 25 minutes Ramin Plunkett MD Work Phone: [facility] Comment on above: Periumbilical abdomi nal pain (Primary Dx) Start: 11-12-2022 End: 11-12-2022 Emergency department patient visit Damien Jorge Facility:[facility] Start: 11-12-2022 End: 11-12-2022 Emergency department patient visit [facility] Start: 11-12-2022 End: 11-12-2022 Patient encounter procedure Avani ZACARIAS Work Phone: [facility] Comment on above: Periumbilical abdomi nal pain (Primary Dx) Start: 09-11-2022 Refill Janette Webster ed, MD Work Phone: [facility] Comment on above: Refill Request Start: 09-09-2022 End: 09-09-2022 Patient encounter procedure Brianda Blockaden JEFFERSON Work Phone: OB/Gynecology Comment on above: Dysmenorrhea (Primar y Dx); Acne vulgaris; Surveillance for control, oral contraceptives Start: 07-16-2022 ambulatory Liberty Bernal RN [facility] [place] Comment on above: Asthma (Chart review for [facility]) Start: 06-28-2022 End: 06-28-2022 Patient encounter procedure Mark Sheehan MD Work Phone: Pediatric Cardiology Comment on above: History of bradycard ia (Primary Dx); Malaise and fatigue; Dizziness; Syncope, unspecified syncope type Start: 06-12-2022 End: 06-12-2022 Patient encounter procedure Breanna Rodrigues MD Work Phone: [facility] Comment on above: Encounter for routin e child health examination w/o abnormal findings (Primary Dx); Encounter for immunization; Headache disorder; Low ferritin level Start: 06-12-2022 End: 06-12-2022 Patient encounter status Breanna Rodrigues MD Work Phone: [facility] Start: 06-10-2022 End: 06-10-2022 Patient encounter procedure Damien Patel MD Work Phone: [facility] Comment on above: Headache disorder (P rimary Dx) Start: 06-05-2022 Telephone encounter Janette tolbert MD Work Phone: [facility] [place] Comment on above: Results Start: 05-26-2022 End: 05-26-2022 Patient encounter procedure Janette Pinto MD Work Phone: [facility] [place] Comment on above: Dizziness (Primary D x); Chest pain, unspecified type; Syncope, unspecified syncope type; Easy bruising Start: 05-24-2022 ambulatory Breanna Rodrigues MD Work Phone: [facility] Comment on above: Syncope Procedures Date Procedure Procedure Detail Performing Clinician Start: 10-13-2024 STREP A MOLECULAR (POC) [facility] Provider Start: 09-21-2024 STREP A MOLECULAR (POC) Edith Bergeron PA-C Work Phone: Start: 07-21-2024 UA DIP,URINE HCG (POC) Brianda Block APRN.DIGITAL SPECIALIST Work Phone: Start: 06-12-2023 Adult depression screening assessment Brit Painter APRN.DIGITAL SPECIALIST Work Phone: Start: 06-12-2022 INFLUENZA VACCINE QUADRIVALENT 6 MO - 64 YRS IM Breanna Rodrigues MD Work Phone: Start: 06-12-2022 Adult depression screening assessment Breanna Rodrigues MD Work Phone: Start: 05-26-2022 Ecg routine ecg w/le ast 12 lds w/i&r [facility] Provider Start: 06-18-2021 Adult depression screening assessment Breanna Rodrigues MD Work Phone: Laboratory test resu lt abnormal Abnormal laboratory test result Janette Pinto MD Work Phone: Plan of Treatment Date Care Activity Detail Author Start: 05-05-2027 Urine microalbumin profile [facility] Start: 08-09-2024 End: 08-09-2024 Patient encounter procedure 08/09/2024 11:20 AM EDT Office Visit [facility] [address], [place] [id number] Hugo Arias APRN.DIGITAL SPECIALIST [address] [place] [address] [facility] Comment on above: Establish [facility] Start: 07-21-2024 End: 07-21-2024 Patient encounter procedure 07/21/2024 2:30 PM EDT Office Visit OB/Gynecology [address] [place], [place] [id number] Brianda Block [employer]SEM[employer].[facility] [address] [place] [address] General counseling and advice for contraceptive management [Z30.09] OB/Gynecology Comment on above: General counseling and advice for contra ceptive management [Z30.09] Start: 06-12-2024 Adult depression screening assessment DEPRESSION SCREENING [facility] Start: 06-12-2024 Annual PCP Team Chronic Disease Visit Annual PCP Team Chronic Disease Visit [facility] Start: 06-12-2024 ASTHMA CONTROL TEST ASTHMA CONTROL TEST [facility] Start: 06-12-2024 Covid-19 Vaccine ( season) Covid-19 Vaccine () [facility] Start: 06-12-2024 Influenza vaccination Influenza Vaccine (#1) [facility] Start: 06-10-2024 End: 06-10-2024 ambulatory 06/10/2024 9:00 AM EDT [facility] [address] [id number] Carolina Jordan MD [address] [place], [place] [id number] 4 month virtual [facility] Comment on above: 4 month virtual Start: 01-01-2024 End: 01-01-2025 NM Stomach Views for gastric emptying solid phase W radionuclide PO NM GASTRIC EMPTYING SOLID Radiology Routine Dyspepsia Expected: 01/01/2024, Expires: 01/01/2025 [facility] Work Phone: Comment on above: Expected: 01/01/2024, Expires: Start: 10-12-2023 Behavioral Health Screening Behavioral Health Screening [facility] Start: 10-12-2023 Depression Assessment Depression Assessment [facility] Start: 2023 Anxiety Screening Anxiety Screening [facility] Start: 2023 Depression Screening Depression Screening [facility] Start: 2023 GC (Gonorrhea) Screening (18-24) GC (Gonorrhea) Screening (18-24) [facility] Start: 2023 Hepatitis C screening Hepatitis C Screening [facility] Start: 2023 HIV screening HIV Screening [facility] Start: 2023 Screening for Chlamydia trachomatis Chlamydia Screening (18-24) [facility] Start: 06-15-2023 End: 08-15-2023 CBC panel - Blood by Automated count CBC Lab Routine Low ferritin level Expected: 06/15/2023, Expires: 08/15/2023 [facility] Work Phone: Comment on above: Expected: 06/15/2023, Expires: 3 Start: 06-15-2023 End: 08-15-2023 Ferritin [Mass/volume] in Serum or Plasma FERRITIN BLD Lab Routine Low ferritin level Expected: 06/15/2023, Expires: 08/15/2023 [facility] Work Phone: Comment on above: Expected: 06/15/2023, Expires: 3 Start: 06-12-2023 Adult depression screening assessment DEPRESSION SCREENING [facility] Start: 06-12-2023 Covid-19 Vaccine () Covid-19 Vaccine () [facility] Start: 06-12-2023 Influenza vaccination INFLUENZA (#1) [facility] Start: 01-01-2023 End: 03-03-2023 25-hydroxyvitamin D3 [Mass/volume] in Serum or Plasma [facility] Work Phone: Comment on above: Expected: 01/01/2023, Expires: 3 Start: 01-01-2023 End: 03-03-2023 Tissue transglutaminase IgA Ab [Units/volume] in Serum [facility] Work Phone: Comment on above: Expected: 01/01/2023, Expires: 3 Start: 12-04-2022 End: 02-03-2023 CBC W Auto Differential panel - Blood CBC + DIFF Lab Routine Periumbilical abdominal pain Expected: 12/04/2022, Expires: 02/03/2023 [facility] Work Phone: Comment on above: Expected: 12/04/2022, Expires: 3 Start: 12-04-2022 End: 02-03-2023 Comprehensive metabolic 2000 panel - Serum or Plasma COMP METABOLIC PANEL Lab Routine Periumbilical abdominal pain Expected: 12/04/2022, Expires: 02/03/2023 [facility] Work Phone: Comment on above: Expected: 12/04/2022, Expires: 3 Start: 12-04-2022 End: 02-03-2023 Erythrocyte sedimentation rate SED RATE WESTERGREN Lab Routine Periumbilical abdominal pain Expected: 12/04/2022, Expires: 02/03/2023 [facility] Work Phone: Comment on above: Expected: 12/04/2022, Expires: 3 Start: 09-05-2022 End: 11-05-2022 CBC panel - Blood by Automated count CBC Lab Routine Iron deficiency Expected: 09/05/2022, Expires: 11/05/2022 [facility] Work Phone: Comment on above: Expected: 09/05/2022, Expires: 3 Start: 09-05-2022 End: 11-05-2022 Ferritin [Mass/volume] in Serum or Plasma FERRITIN BLD Lab Routine Iron deficiency Abnormal laboratory test result Expected: 09/05/2022, Expires: 11/05/2022 [facility] Work Phone: Comment on above: Expected: 09/05/2022, Expires: 3 Start: 09-05-2022 End: 11-05-2022 Glucose [Mass/volume] in Serum or Plasma GLUCOSE RANDOM BLD Lab Routine Abnormal laboratory test result Expected: 09/05/2022, Expires: 11/05/2022 [facility] Work Phone: Comment on above: Expected: 09/05/2022, Expires: 3 Start: 09-05-2022 End: 11-05-2022 Iron and Iron binding capacity panel - Serum or Plasma IRON + TIBC Lab Routine Iron deficiency Abnormal laboratory test result Expected: 09/05/2022, Expires: 11/05/2022 [facility] Work Phone: Comment on above: Expected: 09/05/2022, Expires: 3 Start: 06-18-2022 Adult depression screening assessment DEPRESSION SCREENING [facility] Start: 06-18-2022 ASTHMA CONTROL TEST ASTHMA CONTROL TEST [facility] Start: 06-12-2022 Influenza vaccination INFLUENZA (#1) [facility] Start: 2021 Meningococcal B Vaccine: Consider Based On Risk (1 of 2 - Patient Seeks Protection) Meningococcal B Vaccine: Consider Based On Risk (1 of 2 - Patient Seeks Protection) [facility] Start: 2021 MENINGOCOCCAL B: Consider based on risk (1 of 2 - Patient Seeks Protection) MENINGOCOCCAL B: Consider based on risk (1 of 2 - Patient Seeks Protection) [facility] Start: 2021 MENINGOCOCCAL CONJUGATE (2 - 2-dose series) MENINGOCOCCAL CONJUGATE (2 - 2-dose series) [facility] Start: 2020 CHLAMYDIA SCREENING (<18) CHLAMYDIA SCREENING (<18) [facility] Start: 2020 GC (GONORRHEA) SCREENING (<18) GC (GONORRHEA) SCREENING (<18) [facility] Start: 2019 PEDS TO ADULT TRANSITION ANNUAL ASSESSMENT PEDS TO ADULT TRANSITION ANNUAL ASSESSMENT [facility] Start: 2015 MENINGOCOCCAL B: Consider based on risk (1 of 2 - Risk Bexsero 2-dose series) MENINGOCOCCAL B: Consider based on risk (1 of 2 - Risk Bexsero 2-dose series) [facility] Start: 2005 COVID-19 VACCINE (#1) COVID-19 VACCINE (#1) [facility] End: 05-26-2023 ECG COMPLETE ECG COMPLETE ECG Routine Dizziness 1 Occurrences starting 05/26/2022 until 05/26/2023 [facility] Work Phone: Comment on above: 1 Occurrences starting 05/26/2022 until 05/26/2023 End: 06-25-2023 ECG COMPLETE ECG COMPLETE ECG Routine History of bradycardia Malaise and fatigue 1 Occurrences starting 06/25/2022 until 06/25/2023 [facility] Work Phone: Comment on above: 1 Occurrences starting 06/25/2022 until 06/25/2023 NEXPLANON INSERTION NEXPLANON IN SERTION Procedures Routine Dysmenorrhea General counseling and advice for contraceptive management Ordered: 07/06/2024 [facility] Work Phone: Comment on above: Ordered: 07/06/2024 NEXPLANON INSERTION NEXPLANON IN SERTION Procedures Routine Insertion of implantable subdermal contraceptive Ordered: 07/21/2024 [facility] Work Phone: Comment on above: Ordered: 07/21/2024 OUTSIDE VENDOR CARDI AC OUTPATIENT EXTENDED RHYTHM RECORDING (WITHOUT TELEMETRY) OUTSIDE VENDOR CARDIAC OUTPATIENT EXTENDED RHYTHM RECORDING (WITHOUT TELEMETRY) Holter Routine History of bradycardia Malaise and fatigue Ordered: 06/25/2022 [facility] Work Phone: Comment on above: Ordered: 06/25/2022 Patient Education [facility] Work Phone: Patient referral [facility] Work Phone: Removal impacted cer umen instrumentation unilat REMOVAL OF IMPACTED CERUMEN - INSTRUMENTATION Procedures Routine Hearing loss due to cerumen impaction, right Ordered: 10/13/2024 [facility] Work Phone: Comment on above: Ordered: 10/13/2024 [facility] Immunizations Immunization Date Immunization Notes Care Provider [facility] 09-29-2023 influenza, injectabl e, quadrivalent, contains preservative Mark Sheehan MD Work Phone: [facility] 09-29-2023 influenza virus vacc ine, unspecified formulation Noelle Moran MD Work Phone: [facility] 06-12-2022 influenza, injectabl e, quadrivalent, contains preservative Breanna Rodrigues MD Work Phone: [facility] 06-12-2022 meningococcal polysaccharide (groups A, C, Y and W-135) diphtheria toxoid conjugate vaccine (MCV4P) Breanna Rodrigues MD Work Phone: [facility] 09-01-2022 Meningococcal, MCV4, unspecified conjugate formulation(groups A, C, Y and W-135) Breanna Rodrigues MD Work Phone: [facility] Work Phone: 06-18-2021 influenza, injectabl e, quadrivalent, contains preservative Breanna Rodrigues MD Work Phone: [facility] 06-15-2020 influenza, injectabl e, quadrivalent, contains preservative Breanna Rodrigues MD Work Phone: [facility] 09-12-2019 influenza, injectabl e, quadrivalent, preservative free Breanna Rodrigues MD Work Phone: [facility] 06-21-2018 Human Papillomavirus 9-valent vaccine Breanna Rodrigues MD Work Phone: [facility] 06-21-2018 influenza, injectabl e, quadrivalent, contains preservative Breanna Rodrigues MD Work Phone: [facility] 05-05-2017 Human Papillomavirus 9-valent vaccine Breanna Rodrigues MD Work Phone: [facility] 05-05-2017 tetanus toxoid, redu vince diphtheria toxoid, and acellular pertussis vaccine, adsorbed Breanna Rodrigues MD Work Phone: [facility] 02-12-2017 meningococcal polysaccharide (groups A, C, Y and W-135) diphtheria toxoid conjugate vaccine (MCV4P) Breanna Rodrigues MD Work Phone: [facility] 04-18-2013 hepatitis A vaccine, unspecified formulation Breanna Rodrigues MD Work Phone: [facility] Work Phone: 05-27-2011 diphtheria, tetanus toxoids and acellular pertussis vaccine Breanna Rodrigues MD Work Phone: [facility] 05-27-2011 measles, mumps and rubella virus vaccine Breanna Rodrigues MD Work Phone: [facility] 05-27-2011 poliovirus vaccine, inactivated Breanna Rodrigues MD Work Phone: [facility] 05-27-2011 varicella virus vaccine Breanna Rodrigues MD Work Phone: [facility] 03-17-2007 hepatitis A vaccine, unspecified formulation Breanna Rodrigues MD Work Phone: [facility] 10-20-2006 diphtheria, tetanus toxoids and acellular pertussis vaccine Breanna Rodrigues MD Work Phone: [facility] Work Phone: 10-20-2006 haemophilus influenz ae type b vaccine, HbOC conjugate Breanna Rodrigues MD Work Phone: [facility] Work Phone: 10-20-2006 influenza virus vacc ine, unspecified formulation Breanna Rodrigues MD Work Phone: [facility] Work Phone: 07-23-2006 measles, mumps and rubella virus vaccine Breanna Rodrigues MD Work Phone: [facility] Work Phone: 07-23-2006 pneumococcal conjuga te vaccine, 7 valent Breanna Rodrigues MD Work Phone: [facility] Work Phone: 07-23-2006 varicella virus vaccine Breanna Rodrigues MD Work Phone: [facility] Work Phone: 01-28-2006 DTaP-hepatitis B and poliovirus vaccine Breanna Rodrigues MD Work Phone: [facility] Work Phone: 01-28-2006 haemophilus influenz ae type b vaccine, HbOC conjugate Breanna Rodrigues MD Work Phone: [facility] Work Phone: 01-28-2006 pneumococcal conjuga te vaccine, 7 valent Breanna Rodrigues MD Work Phone: [facility] Work Phone: 2005 DTaP-hepatitis B and poliovirus vaccine Breanna Rodrigues MD Work Phone: [facility] Work Phone: 2005 haemophilus influenz ae type b vaccine, HbOC conjugate Breanna Rodrigues MD Work Phone: [facility] Work Phone: 2005 pneumococcal conjuga te vaccine, 7 valent Breanna Rodrigues MD Work Phone: [facility] Work Phone: 2005 DTaP-hepatitis B and poliovirus vaccine Breanna Rodrigues MD Work Phone: [facility] Work Phone: 2005 haemophilus influenz ae type b vaccine, HbOC conjugate Breanna Rodrigues MD Work Phone: [facility] Work Phone: 2005 pneumococcal conjuga te vaccine, 7 valent Breanna Rodrigues MD Work Phone: [facility] Work Phone: 2005 hepatitis B vaccine, pediatric or pediatric/adolescent dosage Breanna Rodrigues MD Work Phone: [facility] Payers Date Payer Category Payer Self-pay [id number] 2022 Unknown [id number] 2015 Medicaid [id number] 2008 Unknown [employer] [id number] Unknown [id number] Unknown [id number] Unknown [id number] Social History Date Type Detail Facility Start: 11-28-2011 End: 12-03-2023 Tobacco smoking status NHIS Never smoked tobacco [facility] Work Phone: Start: 11-28-2011 End: 11-24-2023 Tobacco use and exposure Smokeless tobacco non-user [facility] Work Phone: Start: 01-03-2022 End: 06-12-2023 Alcohol intake Current non-drinker of alcohol (finding) [facility] Start: 2005 Sex Assigned At Not on file [facility] Start: 05-14-2022 End: 06-12-2022 Exposure to SARS-CoV-2 (event) Not sure [facility] Start: 11-12-2022 End: 06-15-2023 Tobacco smoking status NHIS Unknown if ever smoked [facility] Start: 2005 Sex Assigned At Female W [facility] Start: 06-12-2023 End: 12-03-2023 History of Social function [facility] Start: 06-12-2023 End: 12-03-2023 Tobacco use panel [facility] How hard is it for y ou to pay for the very basics like food, housing, medical care, and heating Not very hard [facility] (I/We) worried erica er (my/our) food would run out before (I/we) got money to buy more. Never true [facility] In the past 12 month s, has lack of transportation kept you from medical appointments or from getting medications? No [facility] In the past 12 month s, was there a time when you were not able to pay the mortgage or rent on time? No [facility] Start: 11-24-2023 End: 11-17-2024 Alcohol intake Current drinker of alcohol (finding) [facility] Start: 11-24-2023 Tobacco Comment Uses a Vape [facility] Start: 11-24-2023 Alcohol Comment Rare but does drink [facility] Start: 10-20-2023 Gender identity Identifies as female gender (finding) [facility] Start: 10-20-2023 Sexual orientation Heterosexual (fin tonny) [facility] Start: 12-03-2023 Tobacco use and exposure User of smokeless tobacco [facility] NEGATED: Highlighted row [facility] NEGATED: Highlighted rowStart: NINF History of tobacco use Passive smoker [facility] Mental Status Date Assessment Result Facility 06-15-2023 Cognitive function Level Of Cons ciousness Awake;Alert;Appropriate [facility] Work Phone: Clinical Notes 07-23-2018 to 11-17-2024 Avani Tate PA - 11/17/2024 1:23 PM Camacho Jason APRN.DIGITAL SPECIALIST - 10/13/2024 1:19 PM Edith Vora PA-C - 09/21/2024 2:07 PM ESTPatient InstructionsPatient Instructions Note Date & Type Note Facility 11-17-2024 Note HNO ID: [id number] Author: AVANI TATE PA Service: ? Author Type: Physician Title Vehicle Service Attendant Type: Progress Notes Filed: 11/17/2024 13:26 Note Text: This note was created using [employer]. Subjective Julian Whitney is a 19 year old female. HPI 19-year-old female presents for left eye redness x 2 days. Patient states for the past 2 days when she wakes up in the morning, her left eye is red. She states that she had a little bit of crusting in the corner of her eye this morning, but she cleaned that out has not had any drainage from the eye since. She has a little bit of itching occasionally of the eye. No pain in the eye. No vision changes. She does wear glasses, no contacts. No cough, congestion or URI symptoms. Patient was watching her nephew the past 2 days and he has pinkeye. PAST MEDICAL HISTORY Diagnosis Date Anemia, unspecified Dysmenorrhea NEGATIVE MEDICAL HISTORY normal color vision PAST SURGICAL HISTORY Procedure Laterality Date NEXPLANON INSERTION Left 07/21/2024 [address] AD[address]OIDECTOMY Dr Stiven Fuller ALLERGIES Patient has no known allergies. MEDICATIONS etonogestrel (NEXPLANON) subdermal implant 68 mg 1 Each by SUBDERMAL route as directed. ferrous sulfate 325 mg (65 mg iron) tablet Take 1 tablet by mouth daily with breakfast. polymyxin B-trimethoprim (POLYTRIM) 10,000 unit- 1 mg/mL ophthalmic solution Use 1 Drop in the left eye every 4 hours for 7 days. fluticasone (FLONASE) 50 mcg/actuation nasal spray Use 2 Sprays in each nostril once daily. Rinse mouth after use. (Patient not taking: Reported on 10/13/2024) FAMILY HISTORY Problem Relation Age of Onset No Known Problems Mother Diabetes Father Macular Degen Father Heart Sister WPW Diabetes Maternal Grandmother Heart Maternal Grandfather 54 [place]; arrthymia Hypertension Maternal Grandfather Celiac Disease No Family History Inflammatory Bowel Disease No Family History Thyroid No Family History Social History Tobacco Use Smoking status: Never Passive exposure: Never Smokeless tobacco: Current Tobacco comments: Uses a Vape Vaping Use Vaping status: Never Used Substance Use Topics Alcohol use: Yes Comment: Rare but does drink Drug use: No Review of Systems Constitutional: Negative for chills and fever. HENT: Negative for congestion, ear pain and sore throat. Eyes: Positive for discharge (crusitng in AM), redness and itching. Negative for photophobia, pain and visual disturbance. Respiratory: Negative for cough and shortness of breath. Cardiovascular: Negative for chest pain. Gastrointestinal: Negative for diarrhea and vomiting. Objective BP 108/71 Pulse 96 Temp 36.4 ?C (97.6 ?F) Resp 18 Wt 65 kg (143 lb 4.8 oz) LMP 07/07/2024 (Exact Date) SpO2 100% Physical Exam Vitals and nursing note reviewed. Constitutional: General: She is not in acute distress. Appearance: Normal appearance. She is not toxic-appearing. HENT: Right Ear: Tympanic membrane and ear canal normal. Left Ear: Tympanic membrane and ear canal normal. Nose: Nose normal. Mouth/Throat: Mouth: Mucous membranes are moist. Eyes: General: Vision grossly intact. Right eye: No discharge. Left eye: No discharge. Extraocular Movements: Extraocular movements intact. Conjunctiva/sclera: Conjunctivae normal. Comments: Eye exam normal. No crusting, drainage, swelling. Vision intact. Cardiovascular: Rate and Rhythm: Normal rate and regular rhythm. Pulmonary: Effort: Pulmonary effort is normal. Breath sounds: Normal breath sounds. Skin: General: Skin is warm and dry. Neurological: Mental Status: She is alert. Assessment and Plan ASSESSMENT/PLAN: 1. Eye irritation - ICD9: 379.99, ICD10: H57.89 -Normal exam. Patient reports some redness and crusting in the a.m. Patient states her nephew does have bacterial conjunctivitis and she has been watching him the past 2 days. -Possible early symptoms of conjunctivitis, if drainage/redness worsens, Rx for Polytrim given, may use this as prescribed Diagnosis and treatment plan were discussed and questions were answered to the patient's satisfaction. Pt acknowledged understanding of concepts and follow up plan. Specific signs and symptoms that would indicate the need for higher level of care were discussed in detail warranting prompt ER evaluation. ERLL Dangelo [facility] 11-17-2024 History of Present illness Narrative This note was created using [employer]. Subjective Julian Whitney is a 19 year old female. HPI 19-year-old female presents for left eye redness x 2 days. Patient states for the past 2 days when she wakes up in the morning, her left eye is red. She states that she had a little bit of crusting in the corner of her eye this morning, but she cleaned that out has not had any drainage from the eye since. She has a little bit of itching occasionally of the eye. No pain in the eye. No vision changes. She does wear glasses, no contacts. No cough, congestion or URI symptoms. Patient was watching her nephew the past 2 days and he has pinkeye. PAST MEDICAL HISTORY Diagnosis Date Anemia, unspecified Dysmenorrhea NEGATIVE MEDICAL HISTORY normal color vision PAST SURGICAL HISTORY Procedure Laterality Date NEXPLANON INSERTION Left 07/21/2024 3 year TONSILLECTOMY & ADENOIDECTOMY <AGE 12 10/12/2010 Dr Stiven Fuller ALLERGIES Patient has no known allergies. MEDICATIONS etonogestrel (NEXPLANON) subdermal implant 68 mg 1 Each by SUBDERMAL route as directed. ferrous sulfate 325 mg (65 mg iron) tablet Take 1 tablet by mouth daily with breakfast. polymyxin B-trimethoprim (POLYTRIM) 10,000 unit- 1 mg/mL ophthalmic solution Use 1 Drop in the left eye every 4 hours for 7 days. fluticasone (FLONASE) 50 mcg/actuation nasal spray Use 2 Sprays in each nostril once daily. Rinse mouth after use. (Patient not taking: Reported on 10/13/2024) FAMILY HISTORY Problem Relation Age of Onset No Known Problems Mother Diabetes Father Macular Degen Father Heart Sister WPW Diabetes Maternal Grandmother Heart Maternal Grandfather 54 [place]; arrthymia Hypertension Maternal Grandfather Celiac Disease No Family History Inflammatory Bowel Disease No Family History Thyroid No Family History Social History Tobacco Use Smoking status: Never Passive exposure: Never Smokeless tobacco: Current Tobacco comments: Uses a Vape Vaping Use Vaping status: Never Used Substance Use Topics Alcohol use: Yes Comment: Rare but does drink Drug use: No Review of Systems Constitutional: Negative for chills and fever. HENT: Negative for congestion, ear pain and sore throat. Eyes: Positive for discharge (crusitng in AM), redness and itching. Negative for photophobia, pain and visual disturbance. Respiratory: Negative for cough and shortness of breath. Cardiovascular: Negative for chest pain. Gastrointestinal: Negative for diarrhea and vomiting. Objective BP 108/71 Pulse 96 Temp 36.4 C (97.6 F) Resp 18 Wt 65 kg (143 lb 4.8 oz) LMP 07/07/2024 (Exact Date) SpO2 100% Physical Exam Vitals and nursing note reviewed. Constitutional: General: She is not in acute distress. Appearance: Normal appearance. She is not toxic-appearing. HENT: Right Ear: Tympanic membrane and ear canal normal. Left Ear: Tympanic membrane and ear canal normal. Nose: Nose normal. Mouth/Throat: Mouth: Mucous membranes are moist. Eyes: General: Vision grossly intact. Right eye: No discharge. Left eye: No discharge. Extraocular Movements: Extraocular movements intact. Conjunctiva/sclera: Conjunctivae normal. Comments: Eye exam normal. No crusting, drainage, swelling. Vision intact. Cardiovascular: Rate and Rhythm: Normal rate and regular rhythm. Pulmonary: Effort: Pulmonary effort is normal. Breath sounds: Normal breath sounds. Skin: General: Skin is warm and dry. Neurological: Mental Status: She is alert. Assessment and Plan ASSESSMENT/PLAN: 1. Eye irritation - ICD9: 379.99, ICD10: H57.89 -Normal exam. Patient reports some redness and crusting in the a.m. Patient states her nephew does have bacterial conjunctivitis and she has been watching him the past 2 days. -Possible early symptoms of conjunctivitis, if drainage/redness worsens, Rx for Polytrim given, may use this as prescribed Diagnosis and treatment plan were discussed and questions were answered to the patient's satisfaction. Pt acknowledged understanding of concepts and follow up plan. Specific signs and symptoms that would indicate the need for higher level of care were discussed in detail warranting prompt ER evaluation. RELL Dangelo documented in this encounter [facility] 10-13-2024 Note HNO ID: [id number] Author: CAMACHO SCOTT APRN.DIGITAL SPECIALIST Service: ? Author Type: Nurse Practitioner Type: Progress Notes Filed: 10/13/2024 18:24 Note Text: Subjective HPI Nontoxic-appearing 19-year-old female presents to urgent care with chief complaint of upper respiratory tract like infection. Duration of symptoms 4 days. Associated symptoms sore throat, nasal congestion, nasal discharge and nonproductive cough. Patient denies the use of any oktz-oqa-gknfdor medications or home remedies for symptom management. Patient states recent sick contacts with similar signs and symptoms. Patient denies any productive cough, fever, chest pain, shortness of breath, pleuritic pain, rash, abdominal pain, nausea, vomiting or change in bowel or bladder habit. .Patient presents with: Cough: ST, bilateral ear pain, hoarse voice x4 days PAST MEDICAL HISTORY Diagnosis Date - Anemia, unspecified - Dysmenorrhea - NEGATIVE MEDICAL HISTORY normal color vision PAST SURGICAL HISTORY Procedure Laterality Date - NEXPLANON INSERTION Left 07/21/2024 3 year - TONSILLECTOMY AND ADENOIDECTOMY Dr Stiven Fuller ALLERGIES Patient has no known allergies. MEDICATIONS - etonogestrel (NEXPLANON) subdermal implant 68 mg 1 Each by SUBDERMAL route as directed. - ferrous sulfate 325 mg (65 mg iron) tablet Take 1 tablet by mouth daily with breakfast. - fluticasone (FLONASE) 50 mcg/actuation nasal spray Use 2 Sprays in each nostril once daily. Rinse mouth after use. (Patient not taking: Reported on 10/13/2024) FAMILY HISTORY Problem Relation Age of Onset - No Known Problems Mother - Diabetes Father - Macular Degen Father - Heart Sister WPW - Diabetes Maternal Grandmother - Heart Maternal Grandfather 54 [place]; arrthymia - Hypertension Maternal Grandfather - Celiac Disease No Family History - Inflammatory Bowel Disease No Family History - Thyroid No Family History Social History Tobacco Use - Smoking status: Never Passive exposure: Never - Smokeless tobacco: Current - Tobacco comments: Uses a Vape Vaping Use - Vaping status: Never Used Substance Use Topics - Alcohol use: Yes Comment: Rare but does drink - Drug use: No BP 110/76 Pulse 83 Temp 36.2 ?C (97.2 ?F) Resp 18 Wt 64.1 kg (141 lb 5 oz) LMP 07/07/2024 (Exact Date) SpO2 100% Review of Systems Constitutional: Positive for malaise/fatigue. Negative for chills and fever. HENT: Positive for congestion, ear pain and sore throat. Negative for ear discharge and sinus pain. Eyes: Negative for blurred vision, pain, discharge and redness. Respiratory: Positive for cough. Negative for hemoptysis, sputum production, shortness of breath, wheezing and stridor. Cardiovascular: Negative for chest pain. Gastrointestinal: Negative for abdominal pain, diarrhea, nausea and vomiting. Musculoskeletal: Positive for myalgias. Skin: Negative for itching and rash. Neurological: Positive for headaches. Negative for dizziness. Objective Physical Exam Constitutional: General: She is not in acute distress. Appearance: She is not diaphoretic. HENT: Head: Normocephalic. Jaw: No trismus, tenderness, swelling or pain on movement. Right Ear: External ear normal. Left Ear: Tympanic membrane, ear canal and external ear normal. Nose: Congestion present. Mouth/Throat: Mouth: Mucous membranes are moist. Pharynx: Oropharynx is clear. Uvula midline. Posterior oropharyngeal erythema present. No pharyngeal swelling, oropharyngeal exudate or uvula swelling. Eyes: Conjunctiva/sclera: Conjunctivae normal. Pupils: Pupils are equal, round, and reactive to light. Cardiovascular: Rate and Rhythm: Normal rate and regular rhythm. Heart sounds: Normal heart sounds. Pulmonary: Effort: Pulmonary effort is normal. No tachypnea, accessory muscle usage or respiratory distress. Breath sounds: Normal breath sounds. No stridor. No wheezing, rhonchi or rales. Abdominal: General: There is no distension. Palpations: Abdomen is soft. Tenderness: There is no abdominal tenderness. There is no guarding or rebound. Musculoskeletal: Cervical back: Normal range of motion and neck supple. No edema, erythema, rigidity or tenderness. No pain with movement. Normal range of motion. Lymphadenopathy: Cervical: No cervical adenopathy. Skin: General: Skin is warm and dry. Neurological: Mental Status: She is alert and oriented to person, place, and time. Moderate amount of cerumen noted right auditory canal. Post irrigation TM pearly bowling and intact bilaterally. Irrigation performed by MANAGER REVIEW. Patient tolerated well. ASSESSMENT/PLAN: 1. Viral illness - ICD9: 079.99, ICD10: B34.9 (primary diagnosis) - Discussed viral etiology and rationale for treatment. - Rapid strep negative in office today - Symptomatic treatment with prn analgesia - Supportive care with fluids and rest 2. Hearing loss due to cerumen impaction (more content not included)... [facility] 10-13-2024 History of Present illness Narrative Subjective HPI Nontoxic-appearing 19-year-old female presents to urgent care with chief complaint of upper respiratory tract like infection. Duration of symptoms 4 days. Associated symptoms sore throat, nasal congestion, nasal discharge and nonproductive cough. Patient denies the use of any aszh-xdm-reqeqkw medications or home remedies for symptom management. Patient states recent sick contacts with similar signs and symptoms. Patient denies any productive cough, fever, chest pain, shortness of breath, pleuritic pain, rash, abdominal pain, nausea, vomiting or change in bowel or bladder habit. .Patient presents with: Cough: ST, bilateral ear pain, hoarse voice x4 days PAST MEDICAL HISTORY Diagnosis Date Anemia, unspecified Dysmenorrhea NEGATIVE MEDICAL HISTORY normal color vision PAST SURGICAL HISTORY Procedure Laterality Date NEXPLANON INSERTION Left 07/21/2024 3 year TONSILLECTOMY & ADENOIDECTOMY <AGE 12 10/12/2010 Dr Stiven Fuller ALLERGIES Patient has no known allergies. MEDICATIONS etonogestrel (NEXPLANON) subdermal implant 68 mg 1 Each by SUBDERMAL route as directed. ferrous sulfate 325 mg (65 mg iron) tablet Take 1 tablet by mouth daily with breakfast. fluticasone (FLONASE) 50 mcg/actuation nasal spray Use 2 Sprays in each nostril once daily. Rinse mouth after use. (Patient not taking: Reported on 10/13/2024) FAMILY HISTORY Problem Relation Age of Onset No Known Problems Mother Diabetes Father Macular Degen Father Heart Sister WPW Diabetes Maternal Grandmother Heart Maternal Grandfather 54 [place]; arrthymia Hypertension Maternal Grandfather Celiac Disease No Family History Inflammatory Bowel Disease No Family History Thyroid No Family History Social History Tobacco Use Smoking status: Never Passive exposure: Never Smokeless tobacco: Current Tobacco comments: Uses a Vape Vaping Use Vaping status: Never Used Substance Use Topics Alcohol use: Yes Comment: Rare but does drink Drug use: No BP 110/76 Pulse 83 Temp 36.2 C (97.2 F) Resp 18 Wt 64.1 kg (141 lb 5 oz) LMP 07/07/2024 (Exact Date) SpO2 100% Review of Systems Constitutional: Positive for malaise/fatigue. Negative for chills and fever. HENT: Positive for congestion, ear pain and sore throat. Negative for ear discharge and sinus pain. Eyes: Negative for blurred vision, pain, discharge and redness. Respiratory: Positive for cough. Negative for hemoptysis, sputum production, shortness of breath, wheezing and stridor. Cardiovascular: Negative for chest pain. Gastrointestinal: Negative for abdominal pain, diarrhea, nausea and vomiting. Musculoskeletal: Positive for myalgias. Skin: Negative for itching and rash. Neurological: Positive for headaches. Negative for dizziness. Objective Physical Exam Constitutional: General: She is not in acute distress. Appearance: She is not diaphoretic. HENT: Head: Normocephalic. Jaw: No trismus, tenderness, swelling or pain on movement. Right Ear: External ear normal. Left Ear: Tympanic membrane, ear canal and external ear normal. Nose: Congestion present. Mouth/Throat: Mouth: Mucous membranes are moist. Pharynx: Oropharynx is clear. Uvula midline. Posterior oropharyngeal erythema present. No pharyngeal swelling, oropharyngeal exudate or uvula swelling. Eyes: Conjunctiva/sclera: Conjunctivae normal. Pupils: Pupils are equal, round, and reactive to light. Cardiovascular: Rate and Rhythm: Normal rate and regular rhythm. Heart sounds: Normal heart sounds. Pulmonary: Effort: Pulmonary effort is normal. No tachypnea, accessory muscle usage or respiratory distress. Breath sounds: Normal breath sounds. No stridor. No wheezing, rhonchi or rales. Abdominal: General: There is no distension. Palpations: Abdomen is soft. Tenderness: There is no abdominal tenderness. There is no guarding or rebound. Musculoskeletal: Cervical back: Normal range of motion and neck supple. No edema, erythema, rigidity or tenderness. No pain with movement. Normal range of motion. Lymphadenopathy: Cervical: No cervical adenopathy. Skin: General: Skin is warm and dry. Neurological: Mental Status: She is alert and oriented to person, place, and time. Moderate amount of cerumen noted right auditory canal. Post irrigation TM pearly bowling and intact bilaterally. Irrigation performed by MANAGER REVIEW. Patient tolerated well. ASSESSMENT/PLAN: 1. Viral illness - ICD9: 079.99, ICD10: B34.9 (primary diagnosis) - Discussed viral etiology and rationale for treatment. - Rapid strep negative in office today - Symptomatic treatment with prn analgesia - Supportive care with fluids and rest 2. Hearing loss due to cerumen impaction, right - ICD9: 389.8, 380.4, ICD10: H61.21 Ear irrigated successfully by MANAGER REVIEW. Patient tolerated well. Spontaneous improvement of hearing. Patient was educated on supportive therapies. Patient will follow up with primary care provider as needed. Patient was instructed to immediately proceed to emergency room for any new, worsening, or symptoms lasting longer than anticipated. The patient's clinical presentation is otherwise unremarkable at this time. Based on exam and clinical finding, the patient is stable for discharge. Plan of care was discussed with patient. Patient verbalizes understanding and agrees to plan of care. This note was generated using [employer] software. It may contain errors in wording, punctuation, or spelling. Camacho Scott APRN.DIGITAL SPECIALIST documented in this encounter [facility] 09-21-2024 Note HNO ID: [id number] Author: EDITH BERGERON PA-C Service: ? Author Type: Physician Title Vehicle Service Attendant Type: Progress Notes Filed: 09/21/2024 14:09 Note Text: This note was created using TraceLinkter. Subjective Julian Whitney is a 19 year old female. HPI Presents with a chief complaint of ears feeling clogged and a sore throat over the past 2 or 3 days. No fever. Denies cough. Some mild congestion. No diarrhea or vomiting. No decreased hearing. No drainage from her ears. Denies sick contacts. Review of Systems Constitutional: Negative. HENT: Positive for congestion, ear pain and sore throat. Negative for ear discharge, sinus pressure and sinus pain. Respiratory: Negative for cough, shortness of breath and wheezing. All other systems reviewed and are negative. PAST MEDICAL HISTORY Diagnosis Date Anemia, unspecified Dysmenorrhea NEGATIVE MEDICAL HISTORY normal color vision Current Outpatient Medications Medication Sig Dispense Refill etonogestrel (NEXPLANON) subdermal implant 68 mg 1 Each by SUBDERMAL route as directed. 1 Each 0 ferrous sulfate 325 mg (65 mg iron) tablet Take 1 tablet by mouth daily with breakfast. 30 tablet 2 fluticasone (FLONASE) 50 mcg/actuation nasal spray Use 2 Sprays in each nostril once daily. Rinse mouth after use. 1 Each 0 cetirizine-pseudoephedrine (ZYRTEC-D) 5-120 mg per tablet Take 1 tablet by mouth two times a day for 5 days. 10 tablet 0 No current facility-administered medications for this visit. PAST SURGICAL HISTORY Procedure Laterality Date NEXPLANON INSERTION Left 07/21/2024 3 [address]ILLECTOMY AND ADENOIDECTOMY Dr Stiven Fuller FAMILY HISTORY Problem Relation Age of Onset No Known Problems Mother Diabetes Father Macular Degen Father Heart Sister WPW Diabetes Maternal Grandmother Heart Maternal Grandfather 54 [place]; arrthymia Hypertension Maternal Grandfather Celiac Disease No Family History Inflammatory Bowel Disease No Family History Thyroid No Family History Social History Tobacco Use Smoking status: Never Passive exposure: Never Smokeless tobacco: Current Tobacco comments: Uses a Vape Vaping Use Vaping status: Never Used Substance Use Topics Alcohol use: Yes Comment: Rare but does drink Drug use: No Objective BP 102/68 Pulse 98 Temp 36.5 ?C (97.7 ?F) Resp 16 Wt 63.4 kg (139 lb 12.4 oz) LMP 07/07/2024 (Exact Date) SpO2 99% Physical Exam Vitals reviewed. Constitutional: Appearance: Normal appearance. HENT: Head: Normocephalic and atraumatic. Right Ear: Tympanic membrane, ear canal and external ear normal. Left Ear: Tympanic membrane, ear canal and external ear normal. Nose: Nose normal. Mouth/Throat: Mouth: Mucous membranes are moist. Pharynx: Oropharynx is clear. Cardiovascular: Rate and Rhythm: Normal rate and regular rhythm. Heart sounds: Normal heart sounds. Pulmonary: Effort: Pulmonary effort is normal. Breath sounds: Normal breath sounds. Musculoskeletal: Cervical back: Neck supple. Lymphadenopathy: Cervical: No cervical adenopathy. Skin: General: Skin is warm and dry. Findings: No rash. Neurological: Mental Status: She is alert. Assessment and Plan ASSESSMENT/PLAN: 1. Sore throat - ICD9: 462, ICD10: J02.9 (primary diagnosis) - suspect viral - Group A strep molecular testing negative - Discussed supportive care treatment with fluids, rest and analgesia. - The patient should follow up in 3-5 days if symptoms persist or worsen - STREP A MOLECULAR (POC) 2. Otalgia of both ears - ICD9: 388.70, ICD10: H92.03 Likely eustachian tube dysfunction. Recommend Flonase and Zyrtec-D which was sent as Rx. Follow-up with PCP if not improving. Edith Bergeron PA-C [facility] 09-21-2024 History of Present illness Narrative This note was created using [employer]. Subjective Julian Whitney is a 19 year old female. HPI Presents with a chief complaint of ears feeling clogged and a sore throat over the past 2 or 3 days. No fever. Denies cough. Some mild congestion. No diarrhea or vomiting. No decreased hearing. No drainage from her ears. Denies sick contacts. Review of Systems Constitutional: Negative. HENT: Positive for congestion, ear pain and sore throat. Negative for ear discharge, sinus pressure and sinus pain. Respiratory: Negative for cough, shortness of breath and wheezing. All other systems reviewed and are negative. PAST MEDICAL HISTORY Diagnosis Date Anemia, unspecified Dysmenorrhea NEGATIVE MEDICAL HISTORY normal color vision Current Outpatient Medications Medication Sig Dispense Refill etonogestrel (NEXPLANON) subdermal implant 68 mg 1 Each by SUBDERMAL route as directed. 1 Each 0 ferrous sulfate 325 mg (65 mg iron) tablet Take 1 tablet by mouth daily with breakfast. 30 tablet 2 fluticasone (FLONASE) 50 mcg/actuation nasal spray Use 2 Sprays in each nostril once daily. Rinse mouth after use. 1 Each 0 cetirizine-pseudoephedrine (ZYRTEC-D) 5-120 mg per tablet Take 1 tablet by mouth two times a day for 5 days. 10 tablet 0 No current facility-administered medications for this visit. PAST SURGICAL HISTORY Procedure Laterality Date NEXPLANON INSERTION Left 07/21/2024 3 year TONSILLECTOMY & ADENOIDECTOMY <AGE 12 10/12/2010 Dr Stiven Alina FAMILY HISTORY Problem Relation Age of Onset No Known Problems Mother Diabetes Father Macular Degen Father Heart Sister WPW Diabetes Maternal Grandmother Heart Maternal Grandfather 54 [place]; arrthymia Hypertension Maternal Grandfather Celiac Disease No Family History Inflammatory Bowel Disease No Family History Thyroid No Family History Social History Tobacco Use Smoking status: Never Passive exposure: Never Smokeless tobacco: Current Tobacco comments: Uses a Vape Vaping Use Vaping status: Never Used Substance Use Topics Alcohol use: Yes Comment: Rare but does drink Drug use: No Objective BP 102/68 Pulse 98 Temp 36.5 C (97.7 F) Resp 16 Wt 63.4 kg (139 lb 12.4 oz) LMP 07/07/2024 (Exact Date) SpO2 99% Physical Exam Vitals reviewed. Constitutional: Appearance: Normal appearance. HENT: Head: Normocephalic and atraumatic. Right Ear: Tympanic membrane, ear canal and external ear normal. Left Ear: Tympanic membrane, ear canal and external ear normal. Nose: Nose normal. Mouth/Throat: Mouth: Mucous membranes are moist. Pharynx: Oropharynx is clear. Cardiovascular: Rate and Rhythm: Normal rate and regular rhythm. Heart sounds: Normal heart sounds. Pulmonary: Effort: Pulmonary effort is normal. Breath sounds: Normal breath sounds. Musculoskeletal: Cervical back: Neck supple. Lymphadenopathy: Cervical: No cervical adenopathy. Skin: General: Skin is warm and dry. Findings: No rash. Neurological: Mental Status: She is alert. Assessment and Plan ASSESSMENT/PLAN: 1. Sore throat - ICD9: 462, ICD10: J02.9 (primary diagnosis) - suspect viral - Group A strep molecular testing negative - Discussed supportive care treatment with fluids, rest and analgesia. - The patient should follow up in 3-5 days if symptoms persist or worsen - STREP A MOLECULAR (POC) 2. Otalgia of both ears - ICD9: 388.70, ICD10: H92.03 Likely eustachian tube dysfunction. Recommend Flonase and Zyrtec-D which was sent as Rx. Follow-up with PCP if not improving. Edith Bergeron PA-C documented in this encounter [facility] 07-21-2024 Instructions Odalis Mahoney MA - 07/21/2024 2:25 PM EDT NEXPLANON PATIENT EDUCATION You may remove dressing in 24 hours. Expect some bruising around insertion site. You may take over the counter pain medication (i.e. Tylenol, motrin, advil, etc) if you have discomfort. Call your provider with excessive bruising or pain. Continue to use condoms for STD prevention. You should use backup contraception for 7 days to prevent . documented in this encounter [facility] 07-21-2024 Note HNO ID: [id number] Author: BRIANDA BLOCK APRN.SUMAN Service: ? Author Type: Nurse Practitioner Type: Progress Notes Filed: 07/21/2024 19:02 Note Text: Julian is a 19 year old patient who presents for Nexplanon insertion. Patient's last menstrual period was 07/07/2024 (exact date). VITALS: BP 110/58 Wt 136 lb (61.7kg) LMP 07/07/2024 Accompanied by grandmother test: negative Nexplanon lot #: [id number] Exp date: 08/11/2026 UNIVERSAL PROTOCOL / SAFETY CHECKLIST Procedure to be Performed: Nexplanon insertion Sign In: A Moment of CARE was completed. Personnel directly involved with the procedure wore the appropriate PPE (Personal Protective Equipment). Patient/Surrogate Stated/Verified: PATIENT VERIFIED(optional for EMERGENT procedures): Patient name, Date of , Relevant allergies, and The intended procedure Time Out Communication: Intended patient and procedure match the source documents. Consent documented and matches the intended procedure. Relevant labs, photos, and/or imaging studies have been reviewed. Correct side/site marked and visible. Medications required for procedure verified. Implant(s) inserted: Correct implant(s) confirmed including size and side. and Expiration date(s) reviewed. Sign Out: SIGN OUT (optional for EMERGENT procedures): No specimen collected. All instruments, equipment, possible retained foreign bodies accounted for. Post-procedure follow-up management communicated and Plan of Care Visit completed when applicable. Brianda Block CNP TECHNIQUE: Patient placed in supine position with left) bent at the elbow and placed over the head. Skin cleansed with betadine. 2mL of 1% lidocaine injected subQ along insertion site. Nexplanon marian inserted under sterile technique. After insertion by the provider, the marian was palpable under the skin by provider. Patient declined to palpate. Steristrips and sterile pressure dressing applied. AANDP: Nexplanon inserted without complications. Patient user card was filled out and given to the patient. The patient was instructed to remove the dressing after 24 hours. Advised to use backup contraception for 7 days. Brianda Block APRN.DIGITAL SPECIALIST [facility] 07-21-2024 History of Present illness Narrative Julian is a 19 year old patient who presents for Nexplanon insertion. Patient's last menstrual period was 07/07/2024 (exact date). VITALS: BP 110/58 Wt 136 lb (61.7kg) LMP 07/07/2024 Accompanied by grandmother test: negative Nexplanon lot #: [id number] Exp date: 08/11/2026 UNIVERSAL PROTOCOL / SAFETY CHECKLIST Procedure to be Performed: Nexplanon insertion Sign In: A Moment of CARE was completed. Personnel directly involved with the procedure wore the appropriate PPE (Personal Protective Equipment). Patient/Surrogate Stated/Verified: PATIENT VERIFIED(optional for EMERGENT procedures): Patient name, Date of , Relevant allergies, and The intended procedure Time Out Communication: Intended patient and procedure match the source documents. Consent documented and matches the intended procedure. Relevant labs, photos, and/or imaging studies have been reviewed. Correct side/site marked and visible. Medications required for procedure verified. Implant(s) inserted: Correct implant(s) confirmed including size and side. and Expiration date(s) reviewed. Sign Out: SIGN OUT (optional for EMERGENT procedures): No specimen collected. All instruments, equipment, possible retained foreign bodies accounted for. Post-procedure follow-up management communicated and Plan of Care Visit completed when applicable. Brianda Block CNP TECHNIQUE: Patient placed in supine position with left) bent at the elbow and placed over the head. Skin cleansed with betadine. 2mL of 1% lidocaine injected subQ along insertion site. Nexplanon marian inserted under sterile technique. After insertion by the provider, the marian was palpable under the skin by provider. Patient declined to palpate. Steristrips and sterile pressure dressing applied. A&P: Nexplanon inserted without complications. Patient user card was filled out and given to the patient. The patient was instructed to remove the dressing after 24 hours. Advised to use backup contraception for 7 days. Brianda Block APRN.SUMAN documented in this encounter [facility] 07-06-2024 Note HNO ID: [id number] Author: BRIANDA BLOCK APRN.CNP Service: ? Author Type: Nurse Practitioner Type: Progress Notes Filed: 07/06/2024 18:15 Note Text: Julian Whitney is a 19 year old female who presents for problem visit painful menstrual cramping without MADELINE. Accompanied by mother. HPI: Stopped continuous MADELINE almost a year ago because she was missing 4-5 pills in a row and then she would remember to take it for a couple of weeks and then miss again. Missed pills resulted in spotting and cramping. Would like to consider a different form of contraception. Was also taking MADELINE for acne. Technical Solutions Engineer prescribed spironolactone but she has not started yet because she wanted to have this appointment first. Is sexually active with one male partner of 1.5 years, condoms for contraception. OB History T0 L0 SAB0 IAB0 Ectopic0 Multiple0 Live Births0 Inspector Conveyor Line History LMP: 06/15/2024 (Exact Date), Having periods Age at Menarche: Age at First : Age at Menopause: Inspector Conveyor Line History Comments: Sexual Activity: Yes; Male Contraception: Condom PAST MEDICAL HISTORY Diagnosis Date Anemia, unspecified Dysmenorrhea NEGATIVE MEDICAL HISTORY normal color vision PAST SURGICAL HISTORY Procedure Laterality Date TONSILLECTOMY AND ADENOIDECTOMY Dr Stiven Fuller FAMILY HISTORY Problem Relation Age of Onset No Known Problems Mother Diabetes Father Macular Degen Father Heart Sister WPW Diabetes Maternal Grandmother Heart Maternal Grandfather 54 [place]; arrthymia Hypertension Maternal Grandfather Celiac Disease No Family History Inflammatory Bowel Disease No Family History Thyroid No Family History Social History Tobacco Use Smoking status: Never Passive exposure: Never Smokeless tobacco: Current Tobacco comments: Uses a Vape Vaping Use Vaping status: Never Used Substance Use Topics Alcohol use: Yes Comment: Rare but does drink Drug use: No Current Outpatient Medications Medication Sig ferrous sulfate 325 mg (65 mg iron) tablet Take 1 tablet by mouth daily with breakfast. dicyclomine (BENTYL) 10 mg capsule TAKE 1 CAPSULE BY MOUTH EVERY 6 HOURS NEEDED FOR ABDOMINAL PAIN (Patient not taking: Reported on 07/06/2024) esomeprazole (NEXIUM) 20 mg capsule Take by mouth. (Patient not taking: Reported on 02/04/2024) Drospirenone-Ethinyl Estradiol (TISHA, 28,) 3-0.03 mg per tablet Take 1 tablet by mouth once daily. FOR CONTINUOUS USE - TAKE ONLY ACTIVE PILLS FOR 12 WEEKS AND THEN TAKE ONE WEEK OF PLACEBO PILLS. (Patient not taking: Reported on 07/06/2024) No current facility-administered medications for this visit. Allergies As of Date: 07/06/2024 (No Known Allergies) Fully Assessed 07/06/2024 REVIEW OF SYSTEMS Allergies and current medication updated:Yes SENSITIVE EXAM: The sensitive examination was discussed with the Patient or Patient's Authorized Photoengraving Etcher. As applicable, any other physician, advance practice provider, medical student, or other health professional student that will be observing or involved in the sensitive examination for educational or training purposes was discussed with the Patient or Authorized Photoengraving Etcher. The Patient or Authorized Photoengraving Etcher has agreed to proceed with the sensitive examination. (Sensitive examination includes inspection and/or palpation of the breasts, pelvis, prostate and anorectal regions). EXAM: BP 110/56 Wt 139 lb 9.6 oz (63.3kg) LMP 06/15/2024 GENERAL: pleasant, female in no apparent distress DERMATOLOGY: Normal with cystic acne CHEST: Normal inspiratory effort NEURO: alert and oriented x3,exam grossly non-focal ASSESSMENT/PLAN: 1. Dysmenorrhea - ICD9: 625.3, ICD10: N94.6 (primary diagnosis) - NEXPLANON INSERTION 2. General counseling and advice for contraceptive management - ICD9: V25.09, ICD10: Z30.09 - discussed contraceptive options with RBA including OCP, NuvaRing, Annovera, patch, Depo Provera, Nexplanon and IUDs. Discussed Nexplanon procedure and side effects including weight gain, unscheduled bleeding. Pt prefers Nexplanon. - NEXPLANON INSERTION 3. Acne vulgaris - ICD9: 706.1, ICD10: L70.0 - she plans to start spironolactone [facility] by pusher [facility] assisted in scheduling during next menses. If menses ends prior to appointment, she will abstain from sexual intercourse. Brianda Block APRN.SUMAN Medical Decision Making: Problems: Moderate: 1+ chronic illnesses with change Risk: Moderate: Drug management and Moderate risk from testing/treatment Medical Decision Making Level: 4 - Moderate [facility] 07-06-2024 History of Present illness Narrative Julian Whitney is a 19 year old female who presents for problem visit painful menstrual cramping without MADELINE. Accompanied by mother. HPI: Stopped continuous MADELINE almost a year ago because she was missing 4-5 pills in a row and then she would remember to take it for a couple of weeks and then miss again. Missed pills resulted in spotting and cramping. Would like to consider a different form of contraception. Was also taking MADELINE for acne. Technical Solutions Engineer prescribed spironolactone but she has not started yet because she wanted to have this appointment first. Is sexually active with one male partner of 1.5 years, condoms for contraception. OB History T0 L0 SAB0 IAB0 Ectopic0 Multiple0 Live Births0 Inspector Conveyor Line History LMP: 06/15/2024 (Exact Date), Having periods Age at Menarche: Age at First : Age at Menopause: Inspector Conveyor Line History Comments: Sexual Activity: Yes; Male Contraception: Condom PAST MEDICAL HISTORY Diagnosis Date Anemia, unspecified Dysmenorrhea NEGATIVE MEDICAL HISTORY normal color vision PAST SURGICAL HISTORY Procedure Laterality Date TONSILLECTOMY & ADENOIDECTOMY <AGE 12 [address] Stiven Fuller FAMILY HISTORY Problem Relation Age of Onset No Known Problems Mother Diabetes Father Macular Degen Father Heart Sister WPW Diabetes Maternal Grandmother Heart Maternal Grandfather 54 [place]; arrthymia Hypertension Maternal Grandfather Celiac Disease No Family History Inflammatory Bowel Disease No Family History Thyroid No Family History Social History Tobacco Use Smoking status: Never Passive exposure: Never Smokeless tobacco: Current Tobacco comments: Uses a Vape Vaping Use Vaping status: Never Used Substance Use Topics Alcohol use: Yes Comment: Rare but does drink Drug use: No Current Outpatient Medications Medication Sig ferrous sulfate 325 mg (65 mg iron) tablet Take 1 tablet by mouth daily with breakfast. dicyclomine (BENTYL) 10 mg capsule TAKE 1 CAPSULE BY MOUTH EVERY 6 HOURS NEEDED FOR ABDOMINAL PAIN (Patient not taking: Reported on 07/06/2024) esomeprazole (NEXIUM) 20 mg capsule Take by mouth. (Patient not taking: Reported on 02/04/2024) Drospirenone-Ethinyl Estradiol (TISHA, 28,) 3-0.03 mg per tablet Take 1 tablet by mouth once daily. FOR CONTINUOUS USE - TAKE ONLY ACTIVE PILLS FOR 12 WEEKS AND THEN TAKE ONE WEEK OF PLACEBO PILLS. (Patient not taking: Reported on 07/06/2024) No current facility-administered medications for this visit. Allergies As of Date: 07/06/2024 (No Known Allergies) Fully Assessed 07/06/2024 REVIEW OF SYSTEMS Allergies and current medication updated:Yes SENSITIVE EXAM: The sensitive examination was discussed with the Patient or Patient's Authorized Photoengraving Etcher. As applicable, any other physician, advance practice provider, medical student, or other health professional student that will be observing or involved in the sensitive examination for educational or training purposes was discussed with the Patient or Authorized Photoengraving Etcher. The Patient or Authorized Photoengraving Etcher has agreed to proceed with the sensitive examination. (Sensitive examination includes inspection and/or palpation of the breasts, pelvis, prostate and anorectal regions). EXAM: BP 110/56 Wt 139 lb 9.6 oz (63.3kg) LMP 06/15/2024 GENERAL: pleasant, female in no apparent distress DERMATOLOGY: Normal with cystic acne CHEST: Normal inspiratory effort NEURO: alert and oriented x3,exam grossly non-focal ASSESSMENT/PLAN: 1. Dysmenorrhea - ICD9: 625.3, ICD10: N94.6 (primary diagnosis) - NEXPLANON INSERTION 2. General counseling and advice for contraceptive management - ICD9: V25.09, ICD10: Z30.09 - discussed contraceptive options with RBA including OCP, NuvaRing, Annovera, patch, Depo Provera, Nexplanon and IUDs. Discussed Nexplanon procedure and side effects including weight gain, unscheduled bleeding. Pt prefers Nexplanon. - NEXPLANON INSERTION 3. Acne vulgaris - ICD9: 706.1, ICD10: L70.0 - she plans to start spironolactone prescribed by pusher runner Follow-up at Nexplanon insertion - assisted in scheduling during next menses. If menses ends prior to appointment, she will abstain from sexual intercourse. Brianda Block APRN.CNP Medical Decision Making: Problems: Moderate: 1+ chronic illnesses with change Risk: Moderate: Drug management and Moderate risk from testing/treatment Medical Decision Making Level: 4 - Moderate documented in this encounter [facility] 04-28-2024 Telephone encounter Note Pharmacy electronically sent a request for the following prescription(s) Date of Last Visit: 02/04/2024 Recommended Follow Up: 4 months Date of Follow-Up: 06/10/24 Requested Prescriptions Pending Prescriptions Disp Refills dicyclomine (BENTYL) 10 mg capsule [Pharmacy Med Name: DICYCLOMINE 10 MG CAPSULE] 120 capsule 1 Sig: TAKE 1 CAPSULE BY MOUTH EVERY 6 HOURS NEEDED FOR ABDOMINAL PAIN Gracia Galicia [facility] 04-28-2024 Miscellaneous Notes Pharmacy electronically sent a request for the following prescription(s) Date of Last Visit: 02/04/2024 Recommended Follow Up: 4 months Date of Follow-Up: 06/10/24 Requested Prescriptions Pending Prescriptions Disp Refills dicyclomine (BENTYL) 10 mg capsule [Pharmacy Med Name: DICYCLOMINE 10 MG CAPSULE] 120 capsule 1 Sig: TAKE 1 CAPSULE BY MOUTH EVERY 6 HOURS NEEDED FOR ABDOMINAL PAIN Gracia Galicia documented in this encounter [facility] 02-04-2024 Instructions Carolina Jordan MD - 02/04/2024 11:45 AM EDT 1. Labs: - Prior lab testing including the complete blood count, comprehensive metabolic panel, and inflammatory markers were normal within the year. Furthermore, celiac screen and thyroid screen was previously normal. - Iron, vitamin B12 and vitamin D - Calprotectin, stool pylori, and hemoccult were negative/normal as well 2. Tests: - Upper endoscopy was reassuring overall without changes consistent with gastritis, esophagitis, or celiac disease. There was thrush in the esophagus 3. Medications: - Diflucan for the lynn in the esophagus (14 days) - Bentyl as needed for cramping - Nexium: continue on 20 mg for another month, then taper to every other day for two weeks then stop 4. Diet: - Water: at least 8-9 glasses daily and no sugary/caffeinated beverages (Be Here) - I am glad you have gained over 2 kg (5#) in the past month - Small frequent meals are important - Daily women's multivitamin (Nature Made) - Dietitian referral in place as needed 5. Behavioral Health: - Mind gut connection can really impact your GI tract symptoms - Continue with the activities that help you deal with stressors/anxiety 6. Follow up in 4 months video visit -but [facility] Contact information for our Pediatric GI team: 1. Regular Hour Communication: [phone] Option No. 2; Please have your name, child's name, date of , and usual provider and call back number ready 2. Please use [facility] [employer] for: Test questions, prescriptions, non-urgent questions, medical forms 3. Senior Technical Manager: Gracia Mcclure 4. GI Roads Supervisor Nurse: Heidy Mcnair RN (IBD); Kelvin De La Rosa RN (General GI) 5. 6. Scheduling: -Appointments: [phone] Option 1 -GI Procedures: [phone] Option 2 -GI Infusions: [phone] Option 3 -Radiology tests (x-ray, UGI, MRI): [phone] 7. Urgent after 5pm/weekends/holidays issues: [phone] -Ask for the Pediatric GI fellow hydration plant operator documented in this encounter [facility] 02-04-2024 History of Present illness Narrative Referring MD: This patient was referred by Breanna Rodrigues MD for evaluation and management of Patient presents with: Post Op Chronic abdominal pain Weight loss Our recommendations will be communicated back (either as a letter or via electronic medical record delivery) to Braenna Rodrigues MD. Medications: Current Outpatient Medications Medication Sig Dispense Refill dicyclomine (BENTYL) 10 mg capsule TAKE 1 CAPSULE BY MOUTH EVERY 6 HOURS NEEDED 60 capsule 1 ferrous sulfate 325 mg (65 mg iron) tablet Take 1 tablet by mouth daily with breakfast. 30 tablet 2 Drospirenone-Ethinyl Estradiol (TISHA, 28,) 3-0.03 mg per tablet Take 1 tablet by mouth once daily. FOR CONTINUOUS USE - TAKE ONLY ACTIVE PILLS FOR 12 WEEKS AND THEN TAKE ONE WEEK OF PLACEBO PILLS. 112 tablet 4 esomeprazole (NEXIUM) 20 mg capsule Take by mouth. (Patient not taking: Reported on 02/04/2024) fluconazole (DIFLUCAN) 200 mg tablet Take 1 tablet by mouth once daily for 14 days. 14 tablet 0 No current facility-administered medications for this visit. HPI: Julian Whitney is a delightful 18 year old female being seen today in follow up on February 04, 2024 (last clinic visit was December 02, 2023) secondary to issues with chronic abdominal pain, unintentional weight loss, early satiety. The patient presents to follow up with mother who provides the history today. Background history: Updated/reviewed Julian is a healthy young woman with past medical history significant for past acetaminophen overdose but otherwise, no other underlying medical issues. Prior to her initial clinic visits, she had been assessed in the emergency room October 2022 due to escalating sharp cramping abdominal pain without radiation worse in the mornings and associated with nausea. She denied any other significant upper GI tract symptoms and was also having normal stools. There were no prior infectious prodrome preceding this, new medication use, or other new stressors/dietary changes. In addition to her gastrointestinal symptoms, she endorsed ongoing intermittent dizziness feeling hot with heart palpitations but not completely panic attacks as per her report. Laboratory evaluation by her general surgeon was quite comprehensive and within normal limits including a complete blood count, comprehensive metabolic panel, and serum inflammatory markers. We first recommended Periactin, and completion of her laboratory evaluation with fecal inflammatory markers. Summary of abdominal pain survey: Responses from December 2022 are in italics with current/confirmed unchanged answers in bold print from September 2023 Location of pain:Periumbilical Initial start of pain (date): October 2022 Quality of pain: Tight and tense --> unchanged Duration of episodes: Longer in the mornings hours; more intermittent lasting minutes; no nocturnal awakening --> still in the mornings > afternoons without nocturnal awakening (episodes in the afternoons are intermittent) Frequency: At least 3-4 times daily --> multiple times daily Exacerbating factors: Continues to endorse that no specific foods aggravate symptoms although spicy foods may have aggravated things in the past Ameliorating factors: Lying down; Nexium has not helped. Periactin also has not made an impact although she was only on it for a couple of weeks Nocturnal awakening:No Tenesmus: ? Yes --> no Blood: No Mucus: No Upper GI tract symptoms: Acid brash: No Heartburn: No Dysphagia: No Associated nausea: 2-3 weeks with NBNB emesis not necessarily associated immediately with eating; no recurrent vomiting but continues to have nausea intermittently and early satiety over the past 5 to 6 months Epigastric pain: None Given ongoing weight loss of 10 pounds between December to September of 2023, we reordered calprotectin and Hemoccult which were within normal limits. Therefore, we made the decision to proceed with upper endoscopic evaluation given her ongoing weight loss and reports of possible early satiety but held on colonoscopy given the fact that her calprotectin and Hemoccult were normal, and she was not having any issues with significant diarrhea. She underwent endoscopic evaluation with biopsies in November 2023; there was no significant mucosal inflammation or signs of since her last clinic visit, she underwent upper endoscopy with biopsies. Endoscopically, there is no significant evidence of mucosal inflammation or eosinophilic infiltration but there were white exudates consistent with Lynn. She otherwise denied any steroid use, or history of recurrent infections. At her last clinic visit, we reviewed these findings and also her ongoing symptoms which included dyspeptic type symptoms, early satiety, lower abdominal pain, and normal stools. . However, it was noted that she had white exudates within the esophagus concerning for possible Lynn. Biopsies did not show any signs of eosinophilic esophagitis, gastritis, candidal infiltration of the mucosa, or villous changes in the small intestine consistent with celiac disease. However, fungal cultures did come back positive for Lynn. Since her scopes in the last clinic visits, Julian continues to endorse daily mid abdominal pain with some lower abdominal pain worse in the morning and improving as the day progresses. Does not appear that the pain especially lower abdominal pain is necessarily related to oral intake although she also endorses dyspeptic type symptoms and early satiety worsened with eating. Stools remain formed soft daily without blood or mucus. She denies any other upper GI tract symptoms including heartburn or dysphagia. She had overall lost almost 8 kg since 2022 due to her symptoms. At that visit, the mother had concerns that there was at least an anxiety component to some of the symptoms. 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 Interval History: She has been doing better since her last visit with a brighter affect today. Furthermore, she has gained over 2 kg since December 2023. Things that is better Her appetite is much better within the last few weeks - weight is back up by ~ 2 kg since the last visit Energy levels: pretty good but not significantly changed Still in the mornings but overall better recently - decreased duration and frequency (usually in the mornings and eventually resolves after lying down ~ 30 minutes) Rare nausea but no heartburn or difficulty swallowing. Medications: Bentyl 4-5 times total for abdominal pain Still on Nexium Iron Of note, the pharmacy never called about the Diflucan. Therefore, she has not been on this since her last clinic visit. When we discussed things that have helped her overall clinical improvement, she feels that the new puppy also has helped a great deal in the responsibilities/loves her puppy. Other events: Completing senior year - was planning on college for radiology but was not accepted into her top program - she will look into job. Periods: on Tisha - periods still normal (getting monthly 4-5 days) Review Of Systems: All elements of the review of system were reviewed and are negative, except as noted above. Past Medical History: PAST MEDICAL HISTORY Diagnosis Date Anemia, unspecified NEGATIVE MEDICAL HISTORY normal color vision PAST SURGICAL HISTORY Procedure Laterality Date TONSILLECTOMY & ADENOIDECTOMY <AGE 12 [address] Stiven Fuller Immunizations: UTD Allergies: ALLERGIES No Known Allergies Development: Developmentally normal Family History: Relation Problem Comments Brother (Alive) Brother (Alive) Father (Alive) Diabetes Macular Degen Maternal Grandfather () Heart (Age: 54) [place]; arrthymia Hypertension Maternal Grandmother (Alive) Diabetes Mother (Alive) No Known Problems Paternal Grandfather (Alive) Paternal Grandmother () Sister (Alive) Heart WPW No Family History Celiac Disease Inflammatory Bowel Disease Thyroid Social History: Social History Tobacco Use Smoking status: Never Passive exposure: Never Smokeless tobacco: Current Tobacco comments: Uses a Vape Vaping Use Vaping Use: Never used Substance Use Topics Alcohol use: Yes Comment: Rare but does drink Drug use: No Lives at home with: Mother and twin sister plus older siblings No recent ill contacts. She is a senior in high school - volleyball finished, and may do track (not sure - was doing lamin and pole vault) . Also in [employer]. Grades: has an A. GPA 3.8. She will work for a year and is interested in applying to be an KENDALL at in the future, worked in [employer] Primary stressors in the recent past have included the current divorce of her parents, and the father's detachment from the family. Physical Exam: BP 106/68 (BP Site: Right Arm, BP Position: Sitting) Pulse 84 Temp 37.2 C (98.9 F) (Temporal) Resp 18 Ht 170.2 cm (5' 7) Wt 54.8 kg (120 lb 14.4 oz) LMP 01/14/2024 (Approximate) SpO2 100% BMI 18.94 kg/m Last 6 Encounter Wt Readings: Date: Wt: 02/04/2024 54.8 kg (120 lb 14.4 oz) (41%, Z= -0.23)* 01/04/2024 52.5 kg (115 lb 12.8 oz) (30%, Z= -0.51)* 12/03/2023 55.4 kg (122 lb 1.6 oz) (44%, Z= -0.14)* 11/24/2023 54.9 kg (121 lb 0.5 oz) (42%, Z= -0.20)* 10/25/2023 55.2 kg (121 lb 11.1 oz) (44%, Z= -0.15)* 09/29/2023 58.3 kg (128 lb 8.5 oz) (58%, Z= 0.20)* General/Constitutional: Cooperative and pleasant. Slender. Well-developed and nourished. Brighter affect. Well-nourished. Alert and active in no apparent distress Head:- Normocephalic Eye:- PERRLA, conjunctiva clear, no icterus Oropharynx:- moist mucous membranes Cardiac:- Regular Rate and Rhythm Respiratory:- clear to auscultation Gastrointestinal:- Abdomen is soft, non-tender today and no rebound or guarding. BS normal, there are no masses or organomegaly, No palpable stool burden Rectal :- deferred Neuro:- Muscle tone normal Musculoskeletal :- Extremities with no problems identified. Extremity:- Normal exam of the extremities. Skin:-normal color, no jaundice or rash Recent testing EGD November 26, 2023 FINAL DIAGNOSIS A. Duodenum, biopsy: - Small bowel mucosa with no significant pathologic changes. - No evidence of celiac sprue. B. Duodenum, bulb, biopsy: - Duodenal mucosa with no significant pathologic changes. - No evidence of celiac sprue. C. Stomach, biopsy: - Antral mucosa with no significant pathologic changes. - No evidence of H. pylori. D. Stomach, body, biopsy: - Fundic mucosa with no significant pathologic changes. - No evidence of H. pylori. E. Lower esophagus, biopsy: - Squamous mucosa with no significant pathologic changes. - No evidence of eosinophilic esophagitis Esophageal brush cultures showed the following: Rare Lynn albicans Abnormal This test was developed and its performance characteristics determined by the [facility] [place] ([facility]). It has not been cleared or approved by the FDA. [facility] is regulated under CLIA as qualified to perform high-complexity testing. This test is used for clinical purposes. It should not be regarded as investigational or for research. Labs/Imaging Lab Results Component Value Date/Time Sed Rate, Westergren 2 09/29/2023 01:29 PM Sed Rate, Westergren 5 12/09/2022 03:40 PM CALPROTECTIN, FECAL QUANTITATIVE 7.85 10/21/2023 09:15 AM CALPROTECTIN, FECAL INTERP Normal 10/21/2023 09:15 AM Lab Results Component Value Date/Time IgA 140 01/01/2023 02:16 PM IgA 78 01/18/2018 02:25 PM Transglutaminase Ab, IgA 6 01/01/2023 02:16 PM TSH 0.825 05/26/2022 12:09 PM Vitamin D 25 Hydroxy 50.4 09/29/2023 01:29 PM Vitamin D 25 Hydroxy 56.0 01/01/2023 02:16 PM Ferritin 12.3 09/29/2023 01:29 PM Ferritin 19.0 01/01/2023 02:16 PM Lab Results Component Value Date/Time AST 24 09/29/2023 01:29 PM AST 23 12/09/2022 03:40 PM ALT 12 09/29/2023 01:29 PM ALT 16 12/09/2022 03:40 PM Alkaline Phosphatase 54 09/29/2023 01:29 PM Alkaline Phosphatase 54 12/09/2022 03:40 PM Bilirubin, Total 0.5 09/29/2023 01:29 PM Bilirubin, Total 0.3 12/09/2022 03:40 PM Albumin 4.4 09/29/2023 01:29 PM Albumin 4.5 12/09/2022 03:40 PM Protein, Total 7.0 09/29/2023 01:29 PM Protein, Total 7.3 12/09/2022 03:40 PM INR 1.0 05/26/2022 12:09 PM Lab Results Component Value Date/Time WBC 5.79 09/29/2023 01:29 PM WBC 7.45 12/09/2022 03:40 PM Hemoglobin 12.2 09/29/2023 01:29 PM Hemoglobin 13.0 12/09/2022 03:40 PM Hematocrit 39.0 09/29/2023 01:29 PM Hematocrit 41.0 12/09/2022 03:40 PM Platelet Count 417 09/29/2023 01:29 PM Platelet Count 385 12/09/2022 03:40 PM Impression: Assessment & Plan Julian Whitney is a mabel 18 year old female being seen today in follow-up after her initial new consultation in pediatric GI clinic secondary to issues with chronic abdominal pain although with somewhat of a subacute worsening in 2022. Initial reassuring features included a benign exam, normal screening labs which have been quite comprehensive, and normal patterns of growth and weight gain. Given initial clinical history and normal labs as well as relatively normal/benign exam, differential diagnoses included functional abdominal pain syndrome especially given some concerns for possible anxiety/stress. While celiac disease and inflammatory bowel disease were considered, the overall history has not been consistent with this. Additional labs included fecal calprotectin which was completely within normal limits (less than 8). In addition, she has not had any significant diarrhea or blood in her stools. Reassuring features include an upper endoscopy which showed no signs of esophagitis, gastritis, or changes consistent with celiac disease. Interestingly, there was some Lynn although the esophageal biopsies itself did not show any invasive changes from this. In addition, there have been concerns of syncopal episodes with her baseline sinus bradycardia. However, she had comprehensive clearance by our colleagues in cardiology prior to endoscopic evaluation. I am pleased to see that she has had clinical improvement with significant resolution of her GI tract symptoms, and improvement in her oral intake and subsequently, the beginnings of regaining prior weight loss. Furthermore, she had a completely benign exam today which is a change as well. I suspect the primary etiology of her ongoing symptoms includes visceral hyperalgesia/DGBI with functional dyspepsia, and ongoing pain not always associated with eating. I am pleased to see that the different types and components of her GI tract discomfort have been improving even if not completely resolved. Furthermore, it appears that hunger is improved and she has less early satiety. I will ensure that she gets the Diflucan which may not have been dispensed for the Lynn in her esophagus. She will still use the Bentyl as needed, and she will continue the Nexium until the end of the school year then start tapering. No additional labs needed at the present time. Unless there is any other acute issues, we will see her back in follow-up in the next 3 to 4 months or sooner as needed as a virtual video visit for a check-in. Patient Instructions 1. Labs: - Prior lab testing including the complete blood count, comprehensive metabolic panel, and inflammatory markers were normal within the year. Furthermore, celiac screen and thyroid screen was previously normal. - Iron, vitamin B12 and vitamin D - Calprotectin, stool pylori, and hemoccult were negative/normal as well 2. Tests: - Upper endoscopy was reassuring overall without changes consistent with gastritis, esophagitis, or celiac disease. There was thrush in the esophagus 3. Medications: - Diflucan for the lynn in the esophagus (14 days) - Bentyl as needed for cramping - Nexium: continue on 20 mg for another month, then taper to every other day for two weeks then stop 4. Diet: - Water: at least 8-9 glasses daily and no sugary/caffeinated beverages (AtriCure woo) - I am glad you have gained over 2 kg (5#) in the past month - Small frequent meals are important - Daily women's multivitamin (Nature Made) - Dietitian referral in place as needed 5. Behavioral Health: - Mind gut connection can really impact your GI tract symptoms - Continue with the activities that help you deal with stressors/anxiety 6. Follow up in 4 months video visit -but [facility] Contact information for our Pediatric GI team: 1. Regular Hour Communication: [phone] Option No. 2; Please have your name, child's name, date of , and usual provider and call back number ready 2. Please use [facility] Kinopto for: Test questions, prescriptions, non-urgent questions, medical forms 3. Senior Technical Manager: Gracia Mcclure 4. GI Roads Supervisor Nurse: Heidy Mcnair RN (IBD); Kelvin De La Rosa RN (General GI) 5. 6. Scheduling: -Appointments: [phone] Option 1 -GI Procedures: [phone] Option 2 -GI Infusions: [phone] Option 3 -Radiology tests (x-ray, UGI, MRI): [phone] 7. Urgent after 5pm/weekends/holidays issues: [phone] -Ask for the Pediatric GI fellow hydration plant operator This note was generated with [employer] dictation software. It may continue incorrect words, spelling, and punctuation that were not noted in review of the chart prior to signing. I spent a total of 40 minutes on the date of the service which included preparing to see the patient, [id number] patient care, completing clinical documentation, obtaining and/or reviewing separately obtained history, performing a medically appropriate examination, counseling and educating the patient/family/caregiver, and independently interpreting results (not separately reported). Carolina Jordan MD Pediatric Gastroenterology Staff 02/04/[address] Breanna Rodrigues MD for an opinion regarding Julian Whitney. My final recommendations will be communicated back to the requesting physician by way of shared Medical record or letter to requesting physician via US mail. CC: Breanna Rodrigues MD [address] [facility] [place] [address] [phone] documented in this encounter [facility] 02-04-2024 Note HNO ID: [id number] Author: CAROLINA JORDAN MD Service: ? Author Type: Physician Type: Progress Notes Filed: 02/04/2024 12:39 Note Text: Referring MD: This patient was referred by Breanna Rodrigues MD for evaluation and management of Patient presents with: Post Op Chronic abdominal pain Weight loss Our recommendations will be communicated back (either as a letter or via electronic medical record delivery) to Breanna Rodrigues MD. Medications: Current Outpatient Medications Medication Sig Dispense Refill dicyclomine (BENTYL) 10 mg capsule TAKE 1 CAPSULE BY MOUTH EVERY 6 HOURS NEEDED 60 capsule 1 ferrous sulfate 325 mg (65 mg iron) tablet Take 1 tablet by mouth daily with breakfast. 30 tablet 2 Drospirenone-Ethinyl Estradiol (TISHA, 28,) 3-0.03 mg per tablet Take 1 tablet by mouth once daily. FOR CONTINUOUS USE - TAKE ONLY ACTIVE PILLS FOR 12 WEEKS AND THEN TAKE ONE WEEK OF PLACEBO PILLS. 112 tablet 4 esomeprazole (NEXIUM) 20 mg capsule Take by mouth. (Patient not taking: Reported on 02/04/2024) fluconazole (DIFLUCAN) 200 mg tablet Take 1 tablet by mouth once daily for 14 days. 14 tablet 0 No current facility-administered medications for this visit. HPI: Julian Whitney is a delightful 18 year old female being seen today in follow up on February 04, 2024 (last clinic visit was December 02, 2023) secondary to issues with chronic abdominal pain, unintentional weight loss, early satiety. The patient presents to follow up with mother who provides the history today. Background history: Updated/reviewed Julian is a healthy young woman with past medical history significant for past acetaminophen overdose but otherwise, no other underlying medical issues. Prior to her initial clinic visits, she had been assessed in the emergency room October 2022 due to escalating sharp cramping abdominal pain without radiation worse in the mornings and associated with nausea. She denied any other significant upper GI tract symptoms and was also having normal stools. There were no prior infectious prodrome preceding this, new medication use, or other new stressors/dietary changes. In addition to her gastrointestinal symptoms, she endorsed ongoing intermittent dizziness feeling hot with heart palpitations but not completely panic attacks as per her report. Laboratory evaluation by her general surgeon was quite comprehensive and within normal limits including a complete blood count, comprehensive metabolic panel, and serum inflammatory markers. We first recommended Periactin, and completion of her laboratory evaluation with fecal inflammatory markers. Summary of abdominal pain survey: Responses from December 2022 are in italics with current/confirmed unchanged answers in bold print from September 2023 Location of pain:Periumbilical Initial start of pain (date): October 2022 Quality of pain: Tight and tense --> unchanged Duration of episodes: Longer in the mornings hours; more intermittent lasting minutes; no nocturnal awakening --> still in the mornings > afternoons without nocturnal awakening (episodes in the afternoons are intermittent) Frequency: At least 3-4 times daily --> multiple times daily Exacerbating factors: Continues to endorse that no specific foods aggravate symptoms although spicy foods may have aggravated things in the past Ameliorating factors: Lying down; Nexium has not helped. Periactin also has not made an impact although she was only on it for a couple of weeks Nocturnal awakening:No Tenesmus: ? Yes --> no Blood: No Mucus: No Upper GI tract symptoms: Acid brash: No Heartburn: No Dysphagia: No Associated nausea: 2-3 weeks with NBNB emesis not necessarily associated immediately with eating; no recurrent vomiting but continues to have nausea intermittently and early satiety over the past 5 to 6 months Epigastric pain: None Given ongoing weight loss of 10 pounds between December to September of 2023, we reordered calprotectin and Hemoccult which were within normal limits. Therefore, we made the decision to proceed with upper endoscopic evaluation given her ongoing weight loss and reports of possible early satiety but held on colonoscopy given the fact that her calprotectin and Hemoccult were normal, and she was not having any issues with significant diarrhea. She underwent endoscopic evaluation with biopsies in November 2023; there was no significant mucosal inflammation or signs of since her last clinic visit, she underwent upper endoscopy with biopsies. Endoscopically, there is no significant evidence of mucosal inflammation or eosinophilic infiltration but there were white exudates consistent with Lynn. She otherwise denied any steroid use, or history of recurrent infections. At her last clinic visit, we reviewed these findings and also her ongoing symptoms which included dyspeptic type symptoms, early satiety, lower abdominal pa (more content not included)... [facility] 01-13-2024 Miscellaneous Notes Patient's request for medication is as follows: Requested Prescriptions Pending Prescriptions Disp Refills dicyclomine (BENTYL) 10 mg capsule [Pharmacy Med Name: DICYCLOMINE 10 MG CAPSULE] 60 capsule 1 Sig: TAKE 1 CAPSULE BY MOUTH EVERY 6 HOURS NEEDED Prescription(s) as above. Please process accordingly. RXRESPONSE: This was e-scripted to the pharmacy Follow up: follow up: As planned Lidia Garcia MD January 13, 2024 Pharmacy electronically sent a request for the following prescription(s) Date of Last Visit: 12/03/03 Date of Follow-Up: 02/04/24 Requested Prescriptions Pending Prescriptions Disp Refills dicyclomine (BENTYL) 10 mg capsule [Pharmacy Med Name: DICYCLOMINE 10 MG CAPSULE] 60 capsule 1 Sig: TAKE 1 CAPSULE BY MOUTH EVERY 6 HOURS NEEDED Daphne Lu documented in this encounter [facility] 01-04-2024 Instructions Rosalina Byrd, PEDRO PABLO - 01/04/2024 1:35 PM EDT include 3 meals and 3 snacks. Include puddings, yogurts, smoothies, [place] Breakfast Essentials in milk; Boost Ensure Include at least on high calorie recipe daily Track intake for symptoms/trigger foods Track fiber intake for 3-4 days to determine baseline, gradually increase fiber to ~20 grams daily Aim for ~30 min walking/exercise most days Follwing guidelines to increase calories documented in this encounter [facility] 01-04-2024 Note HNO ID: [id number] Author: ROSALINA BYRD RD Service: ? Author Type: Registered Dietitian Type: Progress Notes Filed: 01/05/2024 13:26 Note Text: Nutrition Therapy Initial Assessment Nutrition Diagnosis: Unintended weight loss, related to, bloating and pressure vs pain, as evidenced by significant weight loss . RECOMMENDED MALNUTRITION DIAGNOSIS: MILD PROTEIN-CALORIE MALNUTRITION NUTRITION CARE PLAN Nutrition Intervention 01/04/2024: modify type and amount of food or beverage include 3 meals and 3 snacks. Include puddings, yogurts, smoothies, [place] Breakfast Essentials in milk; Boost Ensure Include at least on high calorie recipe daily Track intake for symptoms/trigger foods Track fiber intake for 3-4 days to determine baseline, gradually increase fiber to ~20 grams daily Aim for ~30 min walking/exercise most days Following guidelines to increase calories Nutrition Monitoring AND Evaluation: weight gain and symptom free Need for Follow up: 4-6 weeks Patient presents for initial MNT as relates to GI issues and weight loss. History of asthma and gastritis, Has lost 28 lbs over past year. States issues with pain vs pressure, often associated with needing to move bowels but feels unable to. Will normally move bowels usually twice daily. LIquids often better tolerated. Occ bloating/fullness when waking Normal bowel movements, no constipation Feels comfortable weight 130 lbs Intake noted for frequent sweets, frequent fast foods. Over limited whole grains and produce for low fiber diet. Currently limited activity as school sports ended. Patient's symptoms are: Weight Concerns: weight loss Diet History: Breakfast - fruit or [employer] - graham egg and cheese sandwich hashbrown, water Snack - not usually Lunch - sandwich with cheese and meat; pizza rolls; FF (in air fryer), water Snack - if have will be doritos or cheese sticks; sweets - gummy worms, suckers Dinner - cheese burger, meatballs, cheesy potatoes; Snack - popsickles Beverages - water - usually about 64 oz; lemonade Alcohol- no Vitamins/Supplements - no Smoothie: oragge juice, orange sherbet, peaches, and mangos Activity: Activities of Daily Living: Active 75% of the day. 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 Resting Metabolic Rate: 1334 Malnutrition Screening Significant unintentional weight loss? Yes NUTRITION FOCUSED PHYSICAL EXAM: Subcutaneous Fat Loss Orbital None Triceps None Mid-axillary at the iliac crest Mild Muscle Loss Locations: Temporalis None Pectoralis Mild Deltoids Mild Interosseous None Latissimus dorsi, trapezius None Quadriceps None Gastrocnemius None Potential micronutrient deficiency revealed in: No deficiency identified Edema: No Ascites: NoAssessment of Functional Status: No functional impairment, normal with no limitations Eating less than 75% of usual intake for more than 2 weeks? Potential Signs of Inflammation: no identifiable sources In the context of Chronic Illness or Injury based on: Unintentional Weight Loss: 20% in 12 months Education Materials Provided: Improving Health with Fiber and High Calorie High Protein Diet Guidelines; high calorie reicpes READINESS TO LEARN Cognitive ability: Alert and oriented Motivation to learn: Interested Family support: High - Very involved in pt care Instruction provided to: Patient Patient learns best by: Individual Instruction Factors affecting learning: None Physical limitations affecting learning: None Referred/Supervised by: Tona CALDWELL Billing Type: Initial Assess/15 min 2 units SIGNATURE: Rosalina Byrd RD PATIENT NAME: Julian Whitney DATE: January 04, 2024 TIME: 1:07 PM [facility] 01-04-2024 History of Present illness Narrative Nutrition Therapy Initial Assessment Nutrition Diagnosis: Unintended weight loss, related to, bloating and pressure vs pain, as evidenced by significant weight loss . RECOMMENDED MALNUTRITION DIAGNOSIS: MILD PROTEIN-CALORIE MALNUTRITION NUTRITION CARE PLAN Nutrition Intervention 01/04/2024: modify type and amount of food or beverage include 3 meals and 3 snacks. Include puddings, yogurts, smoothies, [place] Breakfast Essentials in milk; Boost Ensure Include at least on high calorie recipe daily Track intake for symptoms/trigger foods Track fiber intake for 3-4 days to determine baseline, gradually increase fiber to ~20 grams daily Aim for ~30 min walking/exercise most days Following guidelines to increase calories Nutrition Monitoring & Evaluation: weight gain and symptom free Need for Follow up: 4-6 weeks Patient presents for initial MNT as relates to GI issues and weight loss. History of asthma and gastritis, Has lost 28 lbs over past year. States issues with pain vs pressure, often associated with needing to move bowels but feels unable to. Will normally move bowels usually twice daily. LIquids often better tolerated. Occ bloating/fullness when waking Normal bowel movements, no constipation Feels comfortable weight 130 lbs Intake noted for frequent sweets, frequent fast foods. Over limited whole grains and produce for low fiber diet. Currently limited activity as school sports ended. Patient's symptoms are: Weight Concerns: weight loss Diet History: Breakfast - fruit or [employer]onalds - graham egg and cheese sandwich hashbrown, water Snack - not usually Lunch - sandwich with cheese and meat; pizza rolls; FF (in air fryer), water Snack - if have will be doritos or cheese sticks; sweets - gummy worms, suckers Dinner - cheese burger, meatballs, cheesy potatoes; Snack - popsickles Beverages - water - usually about 64 oz; lemonade Alcohol- no Vitamins/Supplements - no Smoothie: oragge juice, orange sherbet, peaches, and mangos Activity: Activities of Daily Living: Active 75% of the day. 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 Resting Metabolic Rate: 1334 Malnutrition Screening Significant unintentional weight loss? Yes NUTRITION FOCUSED PHYSICAL EXAM: Subcutaneous Fat Loss Orbital None Triceps None Mid-axillary at the iliac crest Mild Muscle Loss Locations: Temporalis None Pectoralis Mild Deltoids Mild Interosseous None Latissimus dorsi, trapezius None Quadriceps None Gastrocnemius None Potential micronutrient deficiency revealed in: No deficiency identified Edema: No Ascites: NoAssessment of Functional Status: No functional impairment, normal with no limitations Eating less than 75% of usual intake for more than 2 weeks? Potential Signs of Inflammation: no identifiable sources In the context of Chronic Illness or Injury based on: Unintentional Weight Loss: 20% in 12 months Education Materials Provided: Improving Health with Fiber and High Calorie High Protein Diet Guidelines; high calorie reicpes READINESS TO LEARN Cognitive ability: Alert and oriented Motivation to learn: Interested Family support: High - Very involved in pt care Instruction provided to: Patient Patient learns best by: Individual Instruction Factors affecting learning: None Physical limitations affecting learning: None Referred/Supervised by: Day/Juarez CALDWELL Billing Type: Initial Assess/15 min 2 units SIGNATURE: Rosalina Byrd RD PATIENT NAME: Julian Patel Chelo DATE: January 04, 2024 TIME: 1:07 PM documented in this encounter [facility] 01-04-2024 Note Education (NUTRMISAEL) CHELOJULIAN ([id number]) 5 F Date Time Provider Department 01/04/24 1:00 PM ROSALINA BYRD Reason for Visit: Assessment [673] Patient Education [91] Primary Visit Diagnosis:Dietary counseling [Z71.3] Other Visit Diagnosis:Abnormal weight loss [R63.4] Order(s):CONSULT TO PED NUTRITION [554288] Order #: [id number]: 1 During your visit today, we recorded the following information about you: Weight Height 52.5 kg 1.695 m Allergies As of Date: 01/04/2024 (No Known Allergies) Date Reviewed: 01/04/2024 Reviewed by: Rosalina Byrd RD - Fully Assessed Prescriptions as of 01/05/2024 - ferrous sulfate 325 mg (65 mg iron) tablet Take 1 tablet by mouth daily with breakfast. - dicyclomine (BENTYL) 10 mg capsule Take 1 capsule by mouth every 6 hours as needed. - Drospirenone-Ethinyl Estradiol (TISHA, 28,) 3-0.03 mg per tablet Take 1 tablet by mouth once daily. FOR CONTINUOUS USE - TAKE ONLY ACTIVE PILLS FOR 12 WEEKS AND THEN TAKE ONE WEEK OF PLACEBO PILLS. Encounter Status:Closed by ROSALINA BYRD on 01/05/24 [facility] 12-03-2023 Instructions Carolina Jordan MD - 12/03/2023 10:48 AM EST 1. Labs: - Prior lab testing including the complete blood count, comprehensive metabolic panel, and inflammatory markers were normal within the year. Furthermore, celiac screen and thyroid screen was previously normal. - Iron, vitamin B12 and vitamin D - Calprotectin, stool pylori, and hemoccult were negative/normal as well 2. Tests: - Upper endoscopy was reassuring overall without changes consistent with gastritis, esophagitis, or celiac disease. There was thrush in the esophagus - Gastric emptying scan 3. Medications: - Diflucan for the lynn in the esophagus - Bentyl as needed for cramping 4. Diet: - Water: at least 8-9 glasses daily and no sugary/caffeinated beverages ([employer] woo) - Small frequent meals are important - Daily women's multivitamin ([employer]) - Dietitian referral placed 5. Behavioral Health: - Mind gut connection can really impact your GI tract symptoms - Stop, Breathe, Think mobile application - Please let me know if you would like a referral to psychology 6. Follow up in 3 months -but I need updates by the MyChart in a month 7. Follow up with gynecology to ensure that there is nothing from their standpoint that could be contributing to the abdominal pain Contact information for our Pediatric GI team: 1. Regular Hour Communication: [phone] Option No. 2; Please have your name, child's name, date of , and usual provider and call back number ready 2. Please use [facility] Kinopto for: Test questions, prescriptions, non-urgent questions, medical forms 3. Senior Technical Manager: Gracia Mcclure 4. GI Roads Supervisor Nurse: Heidy Mcnair RN (IBD); Kelvin De La Rosa RN (General GI) 5. 6. Scheduling: -Appointments: [phone] Option 1 -GI Procedures: [phone] Option 2 -GI Infusions: [phone] Option 3 -Radiology tests (x-ray, UGI, MRI): [phone] 7. Urgent after 5pm/weekends/holidays issues: [phone] -Ask for the Pediatric GI fellow hydration plant operator documented in this encounter [facility] 12-03-2023 History of Present illness Narrative Referring MD: This patient was referred by Breanna Rodrigues MD for evaluation and management of Patient presents with: Procedure Follow Up Chronic abdominal pain Weight loss Our recommendations will be communicated back (either as a letter or via electronic medical record delivery) to Breanna Rodrigues MD. Medications: Current Outpatient Medications Medication Sig Dispense Refill dicyclomine (BENTYL) 10 mg capsule Take 1 capsule by mouth every 6 hours as needed. 60 capsule 1 ferrous sulfate 325 mg (65 mg iron) tablet TAKE 1 TABLET BY MOUTH EVERY DAY WITH BREAKFAST 30 tablet 2 Drospirenone-Ethinyl Estradiol (TISHA, 28,) 3-0.03 mg per tablet Take 1 tablet by mouth once daily. FOR CONTINUOUS USE - TAKE ONLY ACTIVE PILLS FOR 12 WEEKS AND THEN TAKE ONE WEEK OF PLACEBO PILLS. 112 tablet 4 No current facility-administered medications for this visit. HPI: Julian Whitney is a mildly 18 year old female being seen today in follow up on December 02, 2023 (last clinic visit was September 29, 2023 after initial new consultation in pediatric GI clinic December 2022) secondary to issues with chronic abdominal pain, unintentional weight loss, early satiety, and follow-up of previous endoscopic evaluation. The patient presents to follow up with mother who provides the history today. Background history: Updated/reviewed She is a previously healthy young woman with past medical history significant for past acetaminophen overdose but otherwise, no other underlying medical issues. Prior to her initial clinic visits, she had been assessed in the emergency room October 2022 due to escalating sharp cramping abdominal pain without radiation worse in the mornings and associated with nausea. She denied any other significant upper GI tract symptoms and was also having normal stools. There were no prior infectious prodrome preceding this, new medication use, or other new stressors/dietary changes. In addition to her gastrointestinal symptoms, she endorsed ongoing intermittent dizziness feeling hot with heart palpitations but not completely panic attacks as per her report. Laboratory evaluation by her general surgeon was quite comprehensive and within normal limits including a complete blood count, comprehensive metabolic panel, and serum inflammatory markers. We first recommended Periactin, and completion of her laboratory evaluation with fecal inflammatory markers. I subsequently saw her back in clinic after her original December 2022 visit in September 2023. At that time, they noted that she was having issues with sporadic stooling, only rare diarrhea, but ongoing unchanged abdominal pain. Summary of abdominal pain survey: Responses from December 2022 are in italics with current/confirmed unchanged answers in bold print Location of pain:Periumbilical Initial start of pain (date): October 2022 Quality of pain: Tight and tense --> unchanged Duration of episodes: Longer in the mornings hours; more intermittent lasting minutes; no nocturnal awakening --> still in the mornings > afternoons without nocturnal awakening (episodes in the afternoons are intermittent) Frequency: At least 3-4 times daily --> multiple times daily Exacerbating factors: Continues to endorse that no specific foods aggravate symptoms although spicy foods may have aggravated things in the past Ameliorating factors: Lying down; Nexium has not helped. Periactin also has not made an impact although she was only on it for a couple of weeks Nocturnal awakening:No Tenesmus: ? Yes --> no Blood: No Mucus: No Upper GI tract symptoms: Acid brash: No Heartburn: No Dysphagia: No Associated nausea: 2-3 weeks with NBNB emesis not necessarily associated immediately with eating; no recurrent vomiting but continues to have nausea intermittently and early satiety over the past 5 to 6 months Epigastric pain: None Given ongoing weight loss of 10 pounds between December to September of 2023, we reordered calprotectin and Hemoccult which were within normal limits. Therefore, we made the decision to proceed with upper endoscopic evaluation given her ongoing weight loss and reports of possible early satiety but held on colonoscopy given the fact that her calprotectin and Hemoccult were normal, and she was not having any issues with significant diarrhea. Interval history Since her last clinic visit, she underwent upper endoscopy with biopsies. Endoscopically, there is no significant evidence of mucosal inflammation. However, it was noted that she had white exudates within the esophagus concerning for possible Lynn. Biopsies did not show any signs of eosinophilic esophagitis, gastritis, candidal infiltration of the mucosa, or villous changes in the small intestine consistent with celiac disease. However, fungal cultures did come back positive for Lynn. Since her scopes in the last clinic visits, Julian continues to endorse daily mid abdominal pain with some lower abdominal pain worse in the morning and improving as the day progresses. Does not appear that the pain especially lower abdominal pain is necessarily related to oral intake although she also endorses dyspeptic type symptoms and early satiety worsened with eating. Stools remain formed soft daily without blood or mucus. She denies any other upper GI tract symptoms including heartburn or dysphagia. In regard to triggers, it still could be food but it is not clear what specific foods would be bothering her. Meals include a fair amount of processed/fast foods. For instance, she will eat mozzarella sticks and chicken nuggets as well as food from [employer] in the past few days. She notes that her stomach seems to grab a lot but is not associated with gassiness, bloating, or distention When asking her about stressors, she denies any anxiety or stress. However, she is primarily schooling online at the present time. In addition, after detailed discussion, the mother stated that she felt that there was a component of stress that could be compounding current symptoms. Furthermore, the mother shared that it has been a stressful time with mother going through divorce and the father is detachment from the family. He is continue to slowly lose weight. In sum total, she is lost almost 8 kg in the past year although the degree of weight loss is slowed down since September. Review Of Systems: All elements of the review of system were reviewed and are negative, except as noted above. Past Medical History: PAST MEDICAL HISTORY Diagnosis Date Anemia, unspecified NEGATIVE MEDICAL HISTORY normal color vision PAST SURGICAL HISTORY Procedure Laterality Date TONSILLECTOMY & ADENOIDECTOMY <AGE 12 [address] Stiven Fuller Immunizations: UTD Allergies: ALLERGIES No Known Allergies Development: Developmentally normal Family History: (-) Crohn's disease (-) Ulcerative colitis (-) Celiac disease (-) GI polyps (-) GI cancers (-) IBS (-) Thyroid disease (-) Cystic fibrosis Social History: Social History Tobacco Use Smoking status: Never Passive exposure: Never Smokeless tobacco: Current Tobacco comments: Uses a Vape Vaping Use Vaping Use: Never used Substance Use Topics Alcohol use: Yes Comment: Rare but does drink Drug use: No Lives at home with: Mother and twin sister plus older siblings No recent ill contacts. She is a senior in high school - volleyball finished, and may do track (not sure - was doing lamin and pole vault) . Also in band. Grades: has an A. GPA 3.8. 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 Primary stressors are the current divorce, and the father's detachment from the family. Physical Exam: BP 104/55 Pulse 72 Temp 37.1 C (98.8 F) (Temporal) Resp 19 Ht 169.5 cm (5' 6.73) Wt 55.4 kg (122 lb 1.6 oz) LMP 11/19/2023 (Exact Date) SpO2 98% BMI 19.28 kg/m Last 6 Encounter Wt Readings: Date: Wt: 12/03/2023 55.4 kg (122 lb 1.6 oz) (44%, Z= -0.14)* 11/24/2023 54.9 kg (121 lb 0.5 oz) (42%, Z= -0.20)* 10/25/2023 55.2 kg (121 lb 11.1 oz) (44%, Z= -0.15)* 09/29/2023 58.3 kg (128 lb 8.5 oz) (58%, Z= 0.20)* 06/12/2023 61.7 kg (136 lb) (71%, Z= 0.54)* 01/01/2023 63 kg (138 lb 12.8 oz) (75%, Z= 0.69)* General/Constitutional: Cooperative and pleasant. Occasionally became teary-eyed when the mother discussed the significant stressors the family has endured. slender but still pink and well-developed well-nourished. Alert and active in no apparent distress Head:- Normocephalic Eye:- PERRLA, conjunctiva clear, no icterus Oropharynx:- moist mucous membranes Cardiac:- Regular Rate and Rhythm Respiratory:- clear to auscultation Gastrointestinal:- Abdomen is soft, non-tender except for some mild discomfort with deep palpation mid abdomen and epigastrium but no rebound or guarding. BS normal, there are no masses or organomegaly, No palpable stool burden Rectal :- deferred Neuro:- Muscle tone normal Musculoskeletal :- Extremities with no problems identified. Extremity:- Normal exam of the extremities. Skin:-normal color, no jaundice or rash. Cystic acne on face unchanged. Recent testing EGD November 26, 2023 FINAL DIAGNOSIS A. Duodenum, biopsy: - Small bowel mucosa with no significant pathologic changes. - No evidence of celiac sprue. B. Duodenum, bulb, biopsy: - Duodenal mucosa with no significant pathologic changes. - No evidence of celiac sprue. C. Stomach, biopsy: - Antral mucosa with no significant pathologic changes. - No evidence of H. pylori. D. Stomach, body, biopsy: - Fundic mucosa with no significant pathologic changes. - No evidence of H. pylori. E. Lower esophagus, biopsy: - Squamous mucosa with no significant pathologic changes. - No evidence of eosinophilic esophagitis Esophageal brush cultures showed the following: Rare Lynn albicans Abnormal This test was developed and its performance characteristics determined by the [facility]'s [facility] [place] [facility]). It has not been cleared or approved by the FDA. [facility] is regulated under CLIA as qualified to perform high-complexity testing. This test is used for clinical purposes. It should not be regarded as investigational or for research. Labs/Imaging Lab Results Component Value Date/Time Katy Smith 2 09/29/2023 01:29 PM Sed Rate, Westergren 5 12/09/2022 03:40 PM CALPROTECTIN, FECAL QUANTITATIVE 7.85 10/21/2023 09:15 AM CALPROTECTIN, FECAL INTERP Normal 10/21/2023 09:15 AM Lab Results Component Value Date/Time IgA 140 01/01/2023 02:16 PM IgA 78 01/18/2018 02:25 PM Transglutaminase Ab, IgA 6 01/01/2023 02:16 PM TSH 0.825 05/26/2022 12:09 PM Vitamin D 25 Hydroxy 50.4 09/29/2023 01:29 PM Vitamin D 25 Hydroxy 56.0 01/01/2023 02:16 PM Ferritin 12.3 09/29/2023 01:29 PM Ferritin 19.0 01/01/2023 02:16 PM Lab Results Component Value Date/Time AST 24 09/29/2023 01:29 PM AST 23 12/09/2022 03:40 PM ALT 12 09/29/2023 01:29 PM ALT 16 12/09/2022 03:40 PM Alkaline Phosphatase 54 09/29/2023 01:29 PM Alkaline Phosphatase 54 12/09/2022 03:40 PM Bilirubin, Total 0.5 09/29/2023 01:29 PM Bilirubin, Total 0.3 12/09/2022 03:40 PM Albumin 4.4 09/29/2023 01:29 PM Albumin 4.5 12/09/2022 03:40 PM Protein, Total 7.0 09/29/2023 01:29 PM Protein, Total 7.3 12/09/2022 03:40 PM INR 1.0 05/26/2022 12:09 PM Lab Results Component Value Date/Time WBC 5.79 09/29/2023 01:29 PM WBC 7.45 12/09/2022 03:40 PM Hemoglobin 12.2 09/29/2023 01:29 PM Hemoglobin 13.0 12/09/2022 03:40 PM Hematocrit 39.0 09/29/2023 01:29 PM Hematocrit 41.0 12/09/2022 03:40 PM Platelet Count 417 09/29/2023 01:29 PM Platelet Count 385 12/09/2022 03:40 PM Impression: Assessment & Plan Julian Whitney is a mabel 18year old female being seen today in follow-up after her initial new consultation in pediatric GI clinic secondary to issues with chronic abdominal pain although with somewhat of a subacute worsening in 2022. Initial reassuring features included a benign exam, normal screening labs which have been quite comprehensive, and normal patterns of growth and weight gain. Given initial clinical history and normal labs as well as relatively normal/benign exam, differential diagnoses included functional abdominal pain syndrome especially given some concerns for possible anxiety/stress. While celiac disease and inflammatory bowel disease were considered, the overall history has not been consistent with this. Additional labs included fecal calprotectin which was completely within normal limits (less than 8). In addition, she has not had any significant diarrhea or blood in her stools. Reassuring features include an upper endoscopy which showed no signs of esophagitis, gastritis, or changes consistent with celiac disease. Interestingly, there was some Lynn although the esophageal biopsies itself did not show any invasive changes from this. In addition, there have been concerns of syncopal episodes with her baseline sinus bradycardia. However, she had comprehensive clearance by our colleagues in cardiology prior to endoscopic evaluation. I remain concerned that there is a strong component of visceral hyperalgesia/DGBI with functional dyspepsia, and ongoing pain not always associated with eating. She does have some early satiety with her ongoing weight loss. To complete the evaluation (we have already looked at her mucosa, basic organ structure with ultrasound, and completed screening labs including a fecal calprotectin (, we will obtain a gastric emptying scan. Getting it is critical to ensure that the impact of stressors and anxiety are addressed given their powerful affect on the enteric nervous system. In addition, if she continues to lose weight, we need to at least consider the possibility of some restrictive eating due to concerns of worsening GI tract symptomatology. I would like close follow-up within the next 1 to 2 months. In addition, we discussed the utility of meeting with her dietitians given the ongoing weight loss. Referral was placed with our team working to get this appointment scheduled prior to leaving clinic. I also offered to help with the behavioral health referral if they were interested in doing so. Finally, I have asked for direct updates by Kin[employer]. Patient Instructions 1. Labs: - Prior lab testing including the complete blood count, comprehensive metabolic panel, and inflammatory markers were normal within the year. Furthermore, celiac screen and thyroid screen was previously normal. - Iron, vitamin B12 and vitamin D - Calprotectin, stool pylori, and hemoccult were negative/normal as well 2. Tests: - Upper endoscopy was reassuring overall without changes consistent with gastritis, esophagitis, or celiac disease. There was thrush in the esophagus - Gastric emptying scan 3. Medications: - Diflucan for the lynn in the esophagus - Bentyl as needed for cramping 4. Diet: - Water: at least 8-9 glasses daily and no sugary/caffeinated beverages ([employer] woo) - Small frequent meals are important - Daily women's multivitamin ([employer]) - Dietitian referral placed 5. Behavioral Health: - Mind gut connection can really impact your GI tract symptoms - Stop, Breathe, Think mobile application - Please let me know if you would like a referral to psychology 6. Follow up in 3 months -but I need updates by the Kinopto in a month 7. Follow up with gynecology to ensure that there is nothing from their standpoint that could be contributing to the abdominal pain Contact information for our Pediatric GI team: 1. Regular Hour Communication: [phone] Option No. 2; Please have your name, child's name, date of , and usual provider and call back number ready 2. Please use [facility] Kinopto for: Test questions, prescriptions, non-urgent questions, medical forms 3. Senior Technical Manager: Gracia Mcclure 4. GI Roads Supervisor Nurse: Heidy Mcnair RN (IBD); Kelvin De La Rosa RN (General GI) 5. 6. Scheduling: -Appointments: [phone] Option 1 -GI Procedures: [phone] Option 2 -GI Infusions: [phone] Option 3 -Radiology tests (x-ray, UGI, MRI): [phone] 7. Urgent after 5pm/weekends/holidays issues: [phone] -Ask for the Pediatric GI fellow hydration plant operator This note was generated with [employer] dictation software. It may continue incorrect words, spelling, and punctuation that were not noted in review of the chart prior to signing. I spent a total of 50 minutes on the date of the service which included preparing to see the patient, [id number] patient care, completing clinical documentation, obtaining and/or reviewing separately obtained history, performing a medically appropriate examination, counseling and educating the patient/family/caregiver, and independently interpreting results (not separately reported). Carolina Jordan MD Pediatric Gastroenterology Staff 12/03/[address] Breanna Rodrigues MD for an opinion regarding Julian Whitney. My final recommendations will be communicated back to the requesting physician by way of shared Medical record or letter to requesting physician via US mail. CC: Breanna Rodrigues MD [id number] [facility] [id number] documented in this encounter [facility] 12-03-2023 Note HNO ID: [id number] Author: CAROLINA JORDAN MD Service: ? Author Type: Physician Type: Progress Notes Filed: 12/03/2023 21:50 Note Text: Referring MD: This patient was referred by Breanna Rodrigues MD for evaluation and management of Patient presents with: Procedure Follow Up Chronic abdominal pain Weight loss Our recommendations will be communicated back (either as a letter or via electronic medical record delivery) to Breanna Rodrigues MD. Medications: Current Outpatient Medications Medication Sig Dispense Refill dicyclomine (BENTYL) 10 mg capsule Take 1 capsule by mouth every 6 hours as needed. 60 capsule 1 ferrous sulfate 325 mg (65 mg iron) tablet TAKE 1 TABLET BY MOUTH EVERY DAY WITH BREAKFAST 30 tablet 2 Drospirenone-Ethinyl Estradiol (TISHA, 28,) 3-0.03 mg per tablet Take 1 tablet by mouth once daily. FOR CONTINUOUS USE - TAKE ONLY ACTIVE PILLS FOR 12 WEEKS AND THEN TAKE ONE WEEK OF PLACEBO PILLS. 112 tablet 4 No current facility-administered medications for this visit. HPI: Julian Whitney is a mildly 18 year old female being seen today in follow up on December 02, 2023 (last clinic visit was September 29, 2023 after initial new consultation in pediatric GI clinic December 2022) secondary to issues with chronic abdominal pain, unintentional weight loss, early satiety, and follow-up of previous endoscopic evaluation. The patient presents to follow up with mother who provides the history today. Background history: Updated/reviewed She is a previously healthy young woman with past medical history significant for past acetaminophen overdose but otherwise, no other underlying medical issues. Prior to her initial clinic visits, she had been assessed in the emergency room October 2022 due to escalating sharp cramping abdominal pain without radiation worse in the mornings and associated with nausea. She denied any other significant upper GI tract symptoms and was also having normal stools. There were no prior infectious prodrome preceding this, new medication use, or other new stressors/dietary changes. In addition to her gastrointestinal symptoms, she endorsed ongoing intermittent dizziness feeling hot with heart palpitations but not completely panic attacks as per her report. Laboratory evaluation by her general surgeon was quite comprehensive and within normal limits including a complete blood count, comprehensive metabolic panel, and serum inflammatory markers. We first recommended Periactin, and completion of her laboratory evaluation with fecal inflammatory markers. I subsequently saw her back in clinic after her original December 2022 visit in September 2023. At that time, they noted that she was having issues with sporadic stooling, only rare diarrhea, but ongoing unchanged abdominal pain. Summary of abdominal pain survey: Responses from December 2022 are in italics with current/confirmed unchanged answers in bold print Location of pain:Periumbilical Initial start of pain (date): October 2022 Quality of pain: Tight and tense --> unchanged Duration of episodes: Longer in the mornings hours; more intermittent lasting minutes; no nocturnal awakening --> still in the mornings > afternoons without nocturnal awakening (episodes in the afternoons are intermittent) Frequency: At least 3-4 times daily --> multiple times daily Exacerbating factors: Continues to endorse that no specific foods aggravate symptoms although spicy foods may have aggravated things in the past Ameliorating factors: Lying down; Nexium has not helped. Periactin also has not made an impact although she was only on it for a couple of weeks Nocturnal awakening:No Tenesmus: ? Yes --> no Blood: No Mucus: No Upper GI tract symptoms: Acid brash: No Heartburn: No Dysphagia: No Associated nausea: 2-3 weeks with NBNB emesis not necessarily associated immediately with eating; no recurrent vomiting but continues to have nausea intermittently and early satiety over the past 5 to 6 months Epigastric pain: None Given ongoing weight loss of 10 pounds between December to September of 2023, we reordered calprotectin and Hemoccult which were within normal limits. Therefore, we made the decision to proceed with upper endoscopic evaluation given her ongoing weight loss and reports of possible early satiety but held on colonoscopy given the fact that her calprotectin and Hemoccult were normal, and she was not having any issues with significant diarrhea. Interval history Since her last clinic visit, she underwent upper endoscopy with biopsies. Endoscopically, there is no significant evidence of mucosal inflammation. However, it was noted that she had white exudates within the esophagus concerning for possible Lynn. Biopsies did not show any signs of eosinophilic esophagitis, gastritis, candidal infiltration of the mucosa, or villous changes in the small intestine consistent with c (more content not included)... [facility] 11-24-2023 Note HNO ID: [id number] Author: MARK SHEEHAN MD Service: ? Author Type: Physician Type: Progress Notes Filed: 11/24/2023 12:47 Note Text: Pediatric and Congenital Heart Rhythm / Electrophysiology Clinic Patient Name: Julian Whitney Date of : 2005 Date of Visit: 11/24/2023 Reason for Consultation: Syncope, family history of WPW The history is provided by Julian and her mother. History of Present Illness: Julian Whitney is a 18 year old female seen by Pediatric Electrophysiology at the [facility] on November 24, 2023 in consultation for syncope. Julian Whitney's cardiovascular history is well summarized from our last clinic visit on 06/28/2022 as follows: Julian experienced blurred vision then dark vision followed by heart racing just prior to her event. She was unconscious for about 10 seconds and woke up with a headache. She states that for weeks prior she experienced similar pre-syncopal symptoms without loss of consciousness. Julian was seen by Dr. Janette Pinto at that time and an ECG was performed which showed sinus bradycardia. She was referred to our service for further evaluation. She was placed on an iron supplement though is not anemic. She has not had syncope prior or since. Of note, Julian was seen by our service on 07/26/2018 for musculoskeletal chest pain. Her ECG was normal at that time and we follow her twin sister (Zan) for Tvfoy-Lwpycdlxw-Yyusc syndrome. Zan had a successful ablation by our service and is doing well. Julian was evaluated again in our office in June 2022 for syncope. Her evaluation was unremarkable and reassuring and we felt that her syncopal event was related to vagal stimulation. Cardiac Review of Systems: Julian complains of syncope. She has had several events since our last visit. In October 2022, she was running outside and felt out of breath. She stopped running and felt dizzy. Shortly thereafter she passed out. She woke quickly thereafter and felt a bit woozy. She had an event at a concert in March 2023. She started to feel unwell and walked over the a fence to hold her up for support. She slowly slumped to the ground. She was picked up and while being supported, passed out again. She received IV fluids in a medical tent and improved after 15 minutes. Her next event occurred in August 2023. She was at a tanning salon and felt unwell while filling out paper work. She sat down on the ground and passed out. The staff at the salon laid her down and she felt better after her feet were put up. Of note, she donated blood that day. Unless otherwise noted, Julian is asymptomatic from a cardiovascular standpoint including no palpitations, chest pain, dyspnea, cyanosis, edema or activity intolerance. GI referred her back to our service for clearance prior to a recommended endoscope. Review of Systems: +GI - discomfort in the AM +10 lb weight loss in the last year The remainder of the review of systems is negative. Past Medical History: PAST MEDICAL HISTORY Diagnosis Date Anemia, unspecified NEGATIVE MEDICAL HISTORY normal color vision Social History: Julian lives with her twin sister, mother and father. She has an older sister has moved out of the house and is . She also has two older brothers that live out of the house. Julian is currently in 12th grade. She will be graduating in 4 months. 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 Cardiac Family History: FAMILY HISTORY Problem Relation Age of Onset No Known Problems Mother Diabetes Father Macular Degen Father Heart Sister WPW Diabetes Maternal Grandmother Heart Maternal Grandfather 54 [place]; arrthymia Hypertension Maternal Grandfather Celiac Disease No Family History Inflammatory Bowel Disease No Family History Thyroid No Family History Sister (Zan) - WPW s/p ablation of a right lateral accessory pathway No additional history of syncope, seizures, arrhythmias, drownings, single car accidents, sudden cardiac , early pacemaker or ICD implantation or congenital deafness. Medications: famotidine (PEPCID) 20 mg tablet Take 1 tablet by mouth two times a day. ferrous sulfate 325 mg (65 mg iron) tablet TAKE 1 TABLET BY MOUTH EVERY DAY WITH BREAKFAST Drospirenone-Ethinyl Estradiol (TISHA, 28,) 3-0.03 mg per tablet Take 1 tablet by mouth once daily. FOR CONTINUOUS USE - TAKE ONLY ACTIVE PILLS FOR 12 WEEKS AND THEN TAKE ONE WEEK OF PLACEBO PILLS. Allergies: ALLERGIES No Known Allergies Physical Examination: BP 130/80 (BP Site: Right Arm, BP Position: Sitting, BP Cuff Size: Regular Adult) Pulse 83 Temp 36.8 ?C (98.2 ?F) (Temporal) Resp 20 Ht 169.5 cm (5' 6.73) Wt 54.9 kg (121 lb 0.5 oz) LMP 11/15/2023 (Approximate) SpO2 99% BMI 19.11 kg/m? General appearance: alert, oriented and in no apparent distress Skin: (more content not included)... [facility] 11-24-2023 History of Present illness Narrative Pediatric and Congenital Heart Rhythm / Electrophysiology Clinic Patient Name: Julian Whitney Date of : 2005 Date of Visit: 11/24/2023 Reason for Consultation: Syncope, family history of WPW The history is provided by Julian and her mother. History of Present Illness: Julian Whitney is a 18 year old female seen by Pediatric Electrophysiology at the [facility] on November 24, 2023 in consultation for syncope. Julain Whitney's cardiovascular history is well summarized from our last clinic visit on 06/28/2022 as follows: Julian experienced blurred vision then dark vision followed by heart racing just prior to her event. She was unconscious for about 10 seconds and woke up with a headache. She states that for weeks prior she experienced similar pre-syncopal symptoms without loss of consciousness. Julian was seen by Dr. Janette Pinto at that time and an ECG was performed which showed sinus bradycardia. She was referred to our service for further evaluation. She was placed on an iron supplement though is not anemic. She has not had syncope prior or since. Of note, Julian was seen by our service on 07/26/2018 for musculoskeletal chest pain. Her ECG was normal at that time and we follow her twin sister (Zan) for Gntmd-Sifjwgubx-Doqys syndrome. Zan had a successful ablation by our service and is doing well. Julian was evaluated again in our office in June 2022 for syncope. Her evaluation was unremarkable and reassuring and we felt that her syncopal event was related to vagal stimulation. Cardiac Review of Systems: Julian complains of syncope. She has had several events since our last visit. In October 2022, she was running outside and felt out of breath. She stopped running and felt dizzy. Shortly thereafter she passed out. She woke quickly thereafter and felt a bit woozy. She had an event at a concert in March 2023. She started to feel unwell and walked over the a fence to hold her up for support. She slowly slumped to the ground. She was picked up and while being supported, passed out again. She received IV fluids in a medical tent and improved after 15 minutes. Her next event occurred in August 2023. She was at a tanning salon and felt unwell while filling out paper work. She sat down on the ground and passed out. The staff at the salon laid her down and she felt better after her feet were put up. Of note, she donated blood that day. Unless otherwise noted, Julian is asymptomatic from a cardiovascular standpoint including no palpitations, chest pain, dyspnea, cyanosis, edema or activity intolerance. GI referred her back to our service for clearance prior to a recommended endoscope. Review of Systems: +GI - discomfort in the AM +10 lb weight loss in the last year The remainder of the review of systems is negative. Past Medical History: PAST MEDICAL HISTORY Diagnosis Date Anemia, unspecified NEGATIVE MEDICAL HISTORY normal color vision Social History: Julian lives with her twin sister, mother and father. She has an older sister has moved out of the house and is . She also has two older brothers that live out of the house. Julian is currently in 12th grade. She will be graduating in 4 months. 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 Cardiac Family History: FAMILY HISTORY Problem Relation Age of Onset No Known Problems Mother Diabetes Father Macular Degen Father Heart Sister WPW Diabetes Maternal Grandmother Heart Maternal Grandfather 54 [place]; arrthymia Hypertension Maternal Grandfather Celiac Disease No Family History Inflammatory Bowel Disease No Family History Thyroid No Family History Sister (Zan) - WPW s/p ablation of a right lateral accessory pathway No additional history of syncope, seizures, arrhythmias, drownings, single car accidents, sudden cardiac , early pacemaker or ICD implantation or congenital deafness. Medications: famotidine (PEPCID) 20 mg tablet Take 1 tablet by mouth two times a day. ferrous sulfate 325 mg (65 mg iron) tablet TAKE 1 TABLET BY MOUTH EVERY DAY WITH BREAKFAST Drospirenone-Ethinyl Estradiol (TISHA, 28,) 3-0.03 mg per tablet Take 1 tablet by mouth once daily. FOR CONTINUOUS USE - TAKE ONLY ACTIVE PILLS FOR 12 WEEKS AND THEN TAKE ONE WEEK OF PLACEBO PILLS. Allergies: ALLERGIES No Known Allergies Physical Examination: BP 130/80 (BP Site: Right Arm, BP Position: Sitting, BP Cuff Size: Regular Adult) Pulse 83 Temp 36.8 C (98.2 F) (Temporal) Resp 20 Ht 169.5 cm (5' 6.73) Wt 54.9 kg (121 lb 0.5 oz) LMP 11/15/2023 (Approximate) SpO2 99% BMI 19.11 kg/m General appearance: alert, oriented and in no apparent distress Skin: Skin color, texture, turgor normal, no suspicious rashes or lesions HEENT: normocephalic, non-dysmorphic, moist mucous membranes, no central cyanosis, and conjuctivae clear Lungs: clear to auscultation, without rales or wheeze, good air exchange Heart: quiet precordium with no heave or thrill, regular rate, normal S1, normal and physiologically splitting S2, no systolic murmur, diastole quiet, and no clicks, rubs or gallops Abdomen: soft, nontender, and liver not enlarged Extremities: upper and lower extremity pulses normal with no brachio-femoral delay, no cyanosis, clubbing or peripheral edema, and no obvious skeletal deformities Musculoskeletal: No joint swelling, deformity, or tenderness Electrocardiogram: I have reviewed and interpreted the ECG 07/26/2018 - sinus bradycardia, normal intervals, normal ECG 05/26/2022 - sinus bradycardia, normal intervals, normal ECG 06/28/2022 - sinus bradycardia, normal intervals, normal ECG 11/24/2023 - sinus bradycardia with sinus arrhythmia, normal ECG Impression: Julian is a 18 year old female presenting with syncope. She has been evaluated in our office in the past for this symptom, which has remained largely unchanged. Of note, Julian has developed GI symptoms with weight loss since our last visit. These developments will no doubt lower her threshold for recurrent syncopal events. Julian reports the classic prodromal constellation of symptoms (feeling hot, dizzy, nauseated). Her events are consistently non-exertional (the event in October 2022 occurred after running, not during). These features are all suggestive of vasovagal syncope. Moreover, Julian has had several normal ECGs in our system, including today. Julian's cardiovascular examination is also normal. We discussed the diagnosis of vasovagal syncope in detail including etiology, treatment and prognosis. We instructed Julian to increase her fluid and salt intake and to lay flat when experiencing a prodrome. There are no cardiovascular precautions regarding her upcoming EGD witih Dr. Carolina Jordan. As an aside, Julian's family history is significant for a twin sister that is followed by our service for Ynscu-Reiselogq-Banjl syndrome which was successfully ablated. Fortunately, WPW is not considered familial in isolated cases, and as stated, Julian does not have WPW as evidenced by numerous ECGs in our system. Recommendations: 1. No exercise or activity restrictions 2. Increase fluid and salt intake as discussed 3. Sit or lay flat should a prodrome recur 4. No follow-up in EP required at this time 5. No cardiovascular precautions regarding her endoscopy Thank you very much for allowing us to participate in Julian's care. Please do not hesitate to contact our clinic with any questions regarding Julian's management. Sincerely, Mark Sheehan MD, RS Pediatric Electrophysiology [facility] November 24, 2023, 11:02 AM I spent a total of 35 minutes on the date of the service which included preparing to see the patient, obkg-pc-fiid patient care, completing clinical documentation, obtaining and/or reviewing separately obtained history, performing a medically appropriate examination, counseling and educating the patient/family/caregiver, ordering medications, tests, or procedures, independently interpreting results (not separately reported), communicating results to the patient/family/caregiver, and care coordination (not separately reported). documented in this encounter [facility] 06-15-2023 History of Present illness Narrative She came in with complaints of passing out twice yesterday at a concert. Patient says this happened once to her about a year ago and she has not received any testing for it at this time. Due to lack of testing or holiday patient is being referred to the emergency room for full evaluation. Patient's mother will take her. Patient's mother was okay with this care plan. documented in this encounter [facility] 06-12-2023 History of Present illness Narrative WELL VISIT PEDIATRIC 14-17 YRS OLD Julian is a 17 year old who presents today for well exam accompanied by her mother. SUBJECTIVE CONCERNS: no concerns HISTORY ACTIVE PROBLEM LIST Gastritis - 01/01/2023 Abdominal Pain - 07/23/2018 Mild Intermittent Asthma - 06/15/2018 PAST MEDICAL HISTORY Diagnosis Date Anemia, unspecified NEGATIVE MEDICAL HISTORY normal color vision PAST SURGICAL HISTORY Procedure Laterality Date TONSILLECTOMY & ADENOIDECTOMY <AGE 12 [address] Stiven Fuller ALLERGIES No Known Allergies Medications: ferrous sulfate 325 mg (65 mg iron) tablet TAKE 1 TABLET BY MOUTH EVERY DAY WITH BREAKFAST Drospirenone-Ethinyl Estradiol (TISHA, 28,) 3-0.03 mg per tablet Take 1 tablet by mouth once daily. FOR CONTINUOUS USE - TAKE ONLY ACTIVE PILLS FOR 12 WEEKS AND THEN TAKE ONE WEEK OF PLACEBO PILLS. cyproheptadine (PERIACTIN) 4 mg tablet TAKE 1 TABLET BY MOUTH EVERYDAY AT BEDTIME hyoscyamine SR (LEVBID) 0.375 mg 12 hr tablet Take 1 tablet by mouth every 12 hours as needed. FAMILY HISTORY Problem Relation Age of Onset No Known Problems Mother Diabetes Father Macular Degen Father Heart Sister WPW Diabetes Maternal Grandmother Heart Maternal Grandfather 54 [place]; arrthymia Hypertension Maternal Grandfather Social History Social History Narrative Lives with mother and twin sister. GPA >3.5 (honors) Band, - percussion, Track, Volleyball No recent travel No ill contacts No tobacco Smoking Exposure: Does your child spend a significant amount of time in the care of anyone who smokes? No School: Presently in 11th grade. No academic or school related concerns No behavioral concerns Any concerns regarding peer interactions? No Physical Activity: more than 1 hour of physical activity per day Recreational Screen Time totaling more than 2 hours of screen time per day. Fainting, dizziness, significant shortness of breath or chest pain with sports or exercise: No History of concussion in the last year: No Safety: Pediatric SDOH - Response to gun questions 06/12/2023 Are there any guns kept in or around your home or where your child spends time? No Reviewed seat belts, bike helmets, and smoke detectors Diet: -Diet is well balanced and appropriate for age -Fruits and veggies are eaten with most meals -Drinks water daily Elimination: no concerns, normal size and consistency Dental: dental care current Sleep: -no sleep concerns Vision: No vision concerns Hearing: No hearing concerns Growth: No growth concerns Gynecological history: LMP: 03/06/2023 Cycles are regular and last 4 days. Dysmenorrhea: none Heavy periods: no Substance use: none High risk behaviors: none Sexual History: Attraction: male Sexually Active: Yes Number of lifetime partners: 2 Contraception: condoms every time and OCPs-no pills missed GC/C screen within the past year: No GC/C screen since most recent partner? No Change in normal vaginal discharge: No Body image: satisfactory Screening tools reviewed and discussed with patient/cspafh-AWI-R and Social Determinants of Health. Please see Patient Entered Data. SDOH: Food Insecurity: No Food Insecurity (06/12/2023) Hunger Vital Sign Worried About Running Out of Food in the Last Year: Never true Ran Out of Food in the Last Year: Never true Financial Resource Strain: Low Risk (06/12/2023) Overall Financial Resource Strain (CARDIA) Difficulty of Paying Living Expenses: Not very hard Transportation Needs: No Transportation Needs (06/12/2023) PRAPARE - Transportation Lack of Transportation (Medical): No Lack of Transportation (Non-Medical): No Housing Stability: Low Risk (06/12/2023) Housing Stability Vital Sign Unable to Pay for Housing in the Last Year: No Number of Places Lived in the Last Year: 2 Unstable Housing in the Last Year: No Discussed SDOH results with patient/family. SDOH needs identified: no concerns identified OBJECTIVE Physical Exam: BP 98/50 Pulse 60 Temp 36.4 C (97.5 F) (Temporal) Resp 20 Ht 170.2 cm (5' 7) Wt 61.7 kg (136 lb) LMP 04/06/2023 (Approximate) BMI 21.30 kg/m Blood pressure %shaina are 7 % systolic and 4 % diastolic based on the 2017 AAP Clinical Practice Guideline. This reading is in the normal blood pressure range. General: Well developed, No acute distress Head: normocephalic Eyes: conjunctivae/corneas clear Ears: normal external ear and canal, tympanic membranes with normal landmarks Nose: no erythema or rhinorrhea Oropharynx: moist mucous membranes, no erythema or exudate Neck: supple, no adenopathy Spine: Back symmetric, no curvature Resp: lungs clear to auscultation Heart: RRR, normal S1 and S2. , No murmurs Abdomen: Soft, nontender, nondistended, no palpable organomegaly or masses, normal bowel sounds Extremities: Full ROM and no swelling, erythema or tenderness Neuro: No focal deficits or abnormal findings present Skin: no rashes ASSESSMENT/PLAN: 1. Encounter for routine child health examination without abnormal findings - ICD9: V20.2, ICD10: Z00.129 (primary diagnosis) Based on PHQ-A Score: 0 (recommended cut off score is 11) and interview, presentation is not consistent with depression - Adolescent anticipatory guidance discussed. - Discussed diet and safety. - Dental care discussed. - Pre[employer] handout given (See Patient Instructions). - Parent/guardian declined immunization for COVID-19 and Influenza and was counseled regarding risk. - Follow up in one year for routine physical. due for [employer] visit in August 13. Low ferritin level - ICD9: 790.6, ICD10: R79.0 - CBC - FERRITIN BLD Breanna Rodrigues MD documented in this encounter [facility] 02-18-2023 Miscellaneous Notes Mother notified Wen Montana RN I cannot do a scope. They need to schedule followup with GI Mom calling, patient continues with abdominal pain, times 4 months, has seen GI, and has been in contact with GI, medications have been switched. patient recently missed school today and yesterday, did vomit times 1 this am because she had herself so upset. We just want to get answers, we are wondering if there is anything else to do, any other testing, getting a scope, anything? documented in this encounter [facility] 02-18-2023 Miscellaneous Notes Spoke to mom to get additional requested information and relay Dr Jordan's recommendations. Mom provided update that Julian is up and her pain has improved since this morning. 1. Mom states that Julian does not have any urinary tract symptoms and has not complained of any other pain except below her belly button 2. Mom unsure on the exact intake but says she is drinking 4-5 yeti cups of water (yeti water bottles are about 26-36oz) 3. Complained once of feeling like she needed to poop at beginning of last week and took miralax but has not had any complaints this week. Mom will ask her when she gets home to make sure constipation isn't playing a role in her pain 4. Julian is not in the midst of her menstrual cycle at this time- mom can't remember exact date she had it but is sure that it isn't now I updated mom that new prescription for bentyl was sent to their pharmacy and that Julian should stop Levbid once this is started. Relayed Dr Jordan's recommendations to be assessed at urgent care if pain persists/worsens to make sure that there is not a superimposed acute process ongoing whether it is directly related to her GI tract or not. Mom verbalized understanding and has no further questions or concerns. Nella Voiers, RN Spoke to mom Per mom, Julian has been experiencing intense abdominal pain that started Thursday. Mom is unsure about exact intensity because Lexie is sleeping. She woke up at 5am crying, bent over in pain, and threw up 1 time. Mom witnessed her throw up but did not see what it looked like. Location: Periumbilical Start: October 2022 Quality of pain: intense, pressure, tight Duration of this episode: 3 days Frequency: intermittent, worse in the morning hours Exacerbating factors: mom unsure, possible stress r/t wisdom teeth removal tomorrow Ameliorating factors: rest Medications: Stopped nexium, taking levbid Q12 and periactin daily---not providing any relief c/o nausea in the morning (about 1 emesis per day during abdominal pain episodes) Mom reports that she is eating and drinking normally and is having normal stools but is not able to ask her at this time to confirm No fever No sick contacts or recent exposures to illness Julian attends school from 8a-10a and then takes online college courses for remainder of day. She is only missing the in person schooling and is still able to participate in her online courses. Mom denies any stress or anxiety r/t school that could exacerbate her pain. Stated would forward information to Dr Jordan for recommendations. Nella Taylor RN Patient has not gone to school for the last couple of days, has been vomiting on occasion but pain is a major concern. Pain is below belly button and is intense. Mom wants to know if she should take patient to the ED. documented in this encounter [facility] 01-09-2023 Miscellaneous Notes Discussed with Dr. Jordan. See recommendations in MyChart encounter. Spoke to Mom. She stated Julian is taking the levbid every morning. Has had no relief in symptoms. States she is having nausea and pain but does not describe the pain. Julian had 2 episodes of emesis on her way to school today and Mom had to take her home. Stated would forward information to Dr. Jordan for recommendations. Thankful for call. Chart reviewed: Plan of care copied from last OV Labs WNL Medications: - Periactin at bedtime to help with gastric accommodation/nausea. This also helps with visceral hyperalgesia which can amplify the pain signals in your GI tract. Diet: - Water: at least 8-9 glasses daily and no sugary/caffeinated beverages (Be Here) - Diet: Decrease high sugar foods, fatty foods, aand dairy elimination (at least for a week) - Daily women's multivitamin Forwarded to provider nurse pool Patients mother contacted the [place] office and expressed that Julian has been dairy free for the past 5 days and still having stomach issues and is on the verge of missing to much school. Mom would appreciate provider review for next plan of care/guidance specifically if this could be anxiety driven and if a referral and or medication would be the appropriate route at this time. Mom can be reached at [phone]. Thank you. Ruth Ann Mayen documented in this encounter [facility] 01-01-2023 Instructions Carolina Jordan MD - 01/01/2023 1:51 PM EDT I am reassured by the fact that you have an overall normal exam which is important, stable weight gain and growth, and previous screening labs which were very comprehensive and within normal limits. I suspect that you most likely have what we call functional abdominal pain syndrome. However, there are some additional things I would like to do as outlined below. 1. Labs: Prior lab testing including the complete blood count, comprehensive metabolic panel, and inflammatory markers were normal. We will check celiac screen as well as well as repeat iron panel and vitamin D levels to ensure that this is not the etiology for your symptoms. We may consider checking stool testing as well if symptoms do not improve. 2. Tests: - Conservative measures first; I would hold on scopes unless labs come back abnormal. 3. Medications: - Levbid twice daily as an antispasmodic. This also helps with visceral hyperalgesia which can amplify the pain signals in your GI tract. - Taper off of the Nexium from daily to once every other day for a week, then stop 4. Diet: - Water: at least 8-9 glasses daily and no sugary/caffeinated beverages (AtriCure woo) - Diet: Decrease high sugar foods, fatty foods, aand dairy elimination (at least for a week) - Daily women's multivitamin 5. Behavioral Health: - Mind gut connection can really impact your GI tract symptoms - Stop, Breathe, Think mobile application 6. Follow up in 3 months -but [facility]js documented in this encounter [facility] 01-01-2023 History of Present illness Narrative Referring MD: This patient was referred by Breanna Rodrigues MD for evaluation and management of Patient presents with: Abdominal Pain: Mid abdominal pain on and off for 2 months. Per pt worse in the morning. Nausea. Our mabel recommendations will be communicated back (either as a letter or via electronic medical record delivery) to Breanna Rodrigues MD. Medications: Current Outpatient Medications Medication Sig Dispense Refill ferrous sulfate 325 mg (65 mg iron) tablet TAKE 1 TABLET BY MOUTH EVERY DAY WITH BREAKFAST 30 tablet 2 esomeprazole (NEXIUM) 20 mg capsule Take 1 capsule by mouth once daily. Drospirenone-Ethinyl Estradiol (TISHA, 28,) 3-0.03 mg per tablet Take 1 tablet by mouth once daily. FOR CONTINUOUS USE - TAKE ONLY ACTIVE PILLS FOR 12 WEEKS AND THEN TAKE ONE WEEK OF PLACEBO PILLS. 112 tablet 4 hyoscyamine SR (LEVBID) 0.375 mg 12 hr tablet Take 1 tablet by mouth every 12 hours as needed. 60 tablet 2 No current facility-administered medications for this visit. HPI: Julian Whitney is a mabel 17 year old female being seen today in new consultation in pediatric GI clinic secondary to issues with chronic abdominal pain The patient presents to follow up with mother who provides the history today. She is an overall healthy young woman. Past medical history is significant for previous Tylenol overdose, but this has been years past, and she has normal liver enzymes on most recent check. She urgently was assessed in the emergency room in October 2022 due to sharp cramping paramedical abdominal pain without radiation noted to be moderate in severity usually worse in the morning on a daily basis lasting for 20 minutes along with nausea. 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 At that time, she reported normal stools, no significant aggravating factors, and no significant upper GI tract symptoms. There were no infectious prodrome preceding this. Exam was noted to being unremarkable except for some mild periumbilical tenderness. Initial evaluation included baseline screening complete blood count, comprehensive metabolic panel, and sed rate, on my review, labs were all within normal limits except for a mildly decreased glucose. Question: dizziness feeling hot/heart racing. Not completely panic attacks Diet: Eggs/Bagel; snack; dinner whatever my mom makes. She does like dairy especially cheese. She does not drink sodas or juices. She states that she is an excellent water drinker. The Summary of GI tract symptomatology Abdominal pain survey Location of pain:Periumbilical Initial start of pain (date): October 2022 Quality of pain: tense/tightness with pressure Duration of episodes:Longer in the mornings hours; more intermittent lasting minutes; no nocturnal awakening Frequency: At least 3-4 times daily Exacerbating factors: Not sure - initially thought spicy foods but not so clear cut Ameliorating factors: Lying down; Nexium has not helped Other non-GI associated symptoms:Some dizziness - had syncopal episodes most recently a few weeks ago (has a manager financial services - working out) Stools: Consistency: Hard alternating with softer stools. Frequency: 2 Nocturnal awakening:No Tenesmus: ? yes Blood: No Mucus: No Upper GI tract symptoms: Acid brash: No Heartburn: No Dysphagia: No Associated nausea: 2-3 weeks with NBNB emesis not necessarily associated immediately with eating Epigastric pain: None There have been no symptoms of concern for oral ulcers,fevers, rashes or joint pain. There is no abdominal pain. There is been normal urination. Energy and activity are appropriate. Appetite has been stable. LMP 3 weeks ago; on OCP every 4 months Review Of Systems: All elements of the review of system were reviewed and are negative, except as noted above. Past Medical History: PAST MEDICAL HISTORY Diagnosis Date Anemia, unspecified NEGATIVE MEDICAL HISTORY normal color vision PAST SURGICAL HISTORY Procedure Laterality Date TONSILLECTOMY & ADENOIDECTOMY <AGE 12 [address] Stiven Fuller Immunizations: UTD Allergies: ALLERGIES No Known Allergies Development: Developmentally normal Family History: (-) Crohn's disease (-) Ulcerative colitis (-) Celiac disease (-) GI polyps (-) GI cancers (-) IBS (-) Thyroid disease (-) Cystic fibrosis Social History: Social History Tobacco Use Smoking status: Never Smokeless tobacco: Never Vaping Use Vaping Use: Never used Substance Use Topics Alcohol use: No Drug use: No Lives at home with: Mother and twin sister. No recent ill contacts. Physical Exam: BP 92/64 Pulse 60 Temp 37.4 C (99.4 F) (Temporal) Resp 18 Ht 169.9 cm (5' 6.9) Wt 63 kg (138 lb 12.8 oz) LMP 12/18/2022 (Approximate) SpO2 97% BMI 21.80 kg/m General/Constitutional:- alert and active in no apparent distress Head:- Normocephalic Eye:- PERRLA, conjunctiva clear, no icterus Oropharynx:- moist mucous membranes Cardiac:- Regular Rate and Rhythm Respiratory:- clear to auscultation Gastrointestinal:- Abdomen is soft, non-tender except for some mild discomfort with deep palpation and more generalized pattern without rebound or guarding. BS normal, there are no masses or organomegaly, No palpable stool burden Rectal :- deferred Neuro:- Muscle tone normal Musculoskeletal :- Extremities with no problems identified. Extremity:- Normal exam of the extremities. Skin:-normal color, no jaundice or rash. Cystic acne on face. Labs/Imaging As noted above. She had normal CMP except for mildly decreased glucose, CBC, and sed rate. Other labs pending. Impression: Assessment & Plan Julian Whitney is a 17 year old female being seen today in new consultation in pediatric GI clinic secondary to issues with chronic abdominal pain although with somewhat of a subacute worsening. Reassuring features include a benign exam, normal screening labs which have been quite comprehensive, and normal patterns of growth and weight gain. Differential diagnoses include functional abdominal pain syndrome especially given some concerns for possible anxiety/stress. Certainly, 1 can consider gastritis, but the location of pain, and the lack of significant response to proton pump inhibitor therapy makes this less likely especially since she does not have any significant upper GI tract symptomatology as well. 1 could also consider inflammatory bowel disease and celiac disease. The former seems less likely given completely normal labs including inflammatory markers. We will complete the initial lab evaluation by checking celiac serologies, vitamin levels, iron panel, and a lipase. We will hold off on stool testing, but we will consider this in the future depending on how she does clinically. I would start with a lactoferrin and Hemoccult. We had a nice detailed discussion about the etiopathogenesis of functional abdominal pain syndrome, and approaches both diagnostically, as well as treatment and nutritional standpoint. We will taper off her Nexium since this does not appear to be of any efficacy, and start antispasmodic therapy with Levbid. We will also optimize her water intake, and make adjustments initially with your elimination and limiting simple sugars which can worsen symptoms in the lower GI tract. As an aside, given her history of dizziness, syncopal episodes recently, baseline sinus bradycardia, and a twin sister who has WPW, she should be reevaluated by her family manager financial services. The family voiced understanding to do so. Patient Instructions I am reassured by the fact that you have an overall normal exam which is important, stable weight gain and growth, and previous screening labs which were very comprehensive and within normal limits. I suspect that you most likely have what we call functional abdominal pain syndrome. However, there are some additional things I would like to do as outlined below. 1. Labs: Prior lab testing including the complete blood count, comprehensive metabolic panel, and inflammatory markers were normal. We will check celiac screen as well as well as repeat iron panel and vitamin D levels to ensure that this is not the etiology for your symptoms. We may consider checking stool testing as well if symptoms do not improve. 2. Tests: - Conservative measures first; I would hold on scopes unless labs come back abnormal. 3. Medications: - Levbid twice daily as an antispasmodic. This also helps with visceral hyperalgesia which can amplify the pain signals in your GI tract. - Taper off of the Nexium from daily to once every other day for a week, then stop 4. Diet: - Water: at least 8-9 glasses daily and no sugary/caffeinated beverages (Be Here) - Diet: Decrease high sugar foods, fatty foods, aand dairy elimination (at least for a week) - Daily women's multivitamin 5. Behavioral Health: - Mind gut connection can really impact your GI tract symptoms - Stop, Breathe, Think mobile application 6. Follow up in 3 months -but [facility]2 weejs I am reassured by the fact that you have an overall normal exam which is important, stable weight gain and growth, and previous screening labs which were very comprehensive and within normal limits. I suspect that you most likely have what we call functional abdominal pain syndrome. However, there are some additional things I would like to do as outlined below. 1. Labs: Prior lab testing including the complete blood count, comprehensive metabolic panel, and inflammatory markers were normal. We will check celiac screen as well to ensure that this is not the etiology for your symptoms. 2. Tests: - Conservative measures first; I would hold on scopes unless labs come back abnormal. 3. Medications: - Periactin at bedtime to help with gastric accommodation/nausea. This also helps with visceral hyperalgesia which can amplify the pain signals in your GI tract. 4. Diet: - Water: at least 8 glasses daily and no sugary/caffeinated beverages (Be Here) - Diet: Decrease high sugar foods, fatty foods, and use Lactaid tablets. - Consider a 4 week trial of the low FODMAPS diet ([email or web address]) - Daily women's multivitamin 5. Behavioral Health: - Mind gut connection can really impact your GI tract symptoms - Stop, Breathe, Think mobile application 6. Follow up in 3-6 months -but I need updates by the MyChart 7. Dietitian: [phone] This note was generated with [employer] dictation software. It may continue incorrect words, spelling, and punctuation that were not noted in review of the chart prior to signing. I spent a total of 55 minutes on the date of the service which included preparing to see the patient, [id number] patient care, completing clinical documentation, obtaining and/or reviewing separately obtained history, performing a medically appropriate examination, counseling and educating the patient/family/caregiver, and independently interpreting results (not separately reported). Carolina Jordan MD Pediatric Gastroenterology Staff 01/01/[address] Breanna Rodrigues MD for an opinion regarding Julian Whitney. My final recommendations will be communicated back to the requesting physician by way of shared Medical record or letter to requesting physician via US mail. CC: Breanna Rodrigues MD [id number] [facility] [id number] [phone] documented in this encounter [facility] 12-24-2022 Miscellaneous Notes per epic, appt scheduled Patricia Swain RN I am happy for them to be evaluated by GI Mom calling, patient off school again this am d/t abdominal pain. Is asking if they can have referral to GI as this has been going on so long. Mom states we haven't been back to [facility], we don't really feel it is from that. Please advise Patricia Swain RN documented in this encounter [facility] 12-08-2022 Miscellaneous Notes Pt is taking it and mom would like the refill. Last WCC: 06/12/2022 Verify RX Benefits Completed Last medication refill date: 09/11/2022 +2 refills Requesting 30 day supply Retail pharmacy updated: Completed Patient aware RX will be sent to pharmacy. No need to notify patient. Immunizations due: COVID-19 VACCINE(1) Never done MENINGOCOCCAL B: Consider based on risk(1 of 2 - Risk Bexsero 2-dose series) Never done GC (GONORRHEA) SCREENING (<18) Never done CHLAMYDIA SCREENING (<18) Never done ASTHMA CONTROL TEST due on 06/18/2022 Zenia Adrian LPN documented in this encounter [facility] 12-04-2022 Instructions Ramin Plunkett MD - 12/04/2022 7:20 PM EST 5 to Go!TM Healthy Kids Inside & Out 5 Eat FIVE fruits and veggies a day 4 Give and get FOUR compliments a day 3 Consume THREE calcium products a day 2 Limit media time to TWO hours a day 1 Get at least ONE hour of exercise a day 0 Consume ZERO sugar-sweetened drinks Go! Be healthy, inside and out! [email or web address] documented in this encounter [facility] 12-04-2022 History of Present illness Narrative PEDIATRIC ABDOMINAL PAIN VISIT SERVICE DATE: 12/04/2022 History was obtained from: mother and patient Julian Whitney is a 17 year old accompanied by mother for abdominal pain. She was seen in the emergency room 3 weeks ago for this Pain is described as: sharp and cramping Onset of pain / discomfort: 6 week(s) ago Location: Periumbilical without radiation Severity: moderate When does it occur: when I wake up in the morning Frequency: daily Duration: a few sec intervals for 20 min Associated Symptoms: nausea Julian's attendance at school or social activities has been affected by her pain. She has missed several days of school. She continues to run track despite the pain Pain awakens patient from sleep: No Aggravating factors: none Symptoms associated w/ dairy intake: No Symptoms associated with fructose: No Symptoms associated w/ intake of other specific foods or meals: none Food Intake: Appropriate with adequate calcium intake Appetite changes: No Alleviating factors: antacids (no change) Stool pattern at present time: BM tid Any change in BM pattern since pain started: No Difficulty/ straining/ pain w/ BM: No Gross blood in BM: No Nausea/ vomiting: No GERD symptoms: No Unintentional, abnormal wt loss or gain: No Exposures: Travel: No Camping / outdoors: No Reed / streams: No Raw foods: No Pets / reptile exposure: No Known stressors at home, school, social: No Family history of GI problems: Negative Review Of Systems: Fever: No Rashes: No Joint pain: No Headache: No Respiratory: No cough, hemoptysis, asthma, recent chest infection, wheezing Cardiovascular: No history of chest pain, palpitation, orthopnea, cyanosis, pedal edema Genitourinary: No burning with urination, blood in urine or incontinence and No change in vaginal discharge, burning, dryness or itching Started new OCP 3 months ago- some spotting Sexually active: No Social history: non-contributory Previous DiagnosticTests reviewed: Yes, UA in the emergency room was negative PAST MEDICAL HISTORY Diagnosis Date Anemia, unspecified NEGATIVE MEDICAL HISTORY normal color vision ACTIVE PROBLEM LIST Mild Intermittent Asthma - 06/15/2018 PAST SURGICAL HISTORY Procedure Laterality Date TONSILLECTOMY & ADENOIDECTOMY <AGE 12 [address] Stiven Fuller FAMILY HISTORY Problem Relation Age of Onset Diabetes Father Macular Degen Father Heart Sister WPW Diabetes Maternal Grandmother Heart Maternal Grandfather 54 [place]; arrthymia Hypertension Maternal Grandfather ALLERGIES No Known Allergies MEDICATIONS: esomeprazole (NEXIUM) 20 mg capsule Take 1 capsule by mouth once daily. ferrous sulfate 325 mg (65 mg iron) tablet TAKE 1 TABLET BY MOUTH EVERY DAY WITH BREAKFAST Drospirenone-Ethinyl Estradiol (TISHA, 28,) 3-0.03 mg per tablet Take 1 tablet by mouth once daily. FOR CONTINUOUS USE - TAKE ONLY ACTIVE PILLS FOR 12 WEEKS AND THEN TAKE ONE WEEK OF PLACEBO PILLS. PHYSICAL EXAMINATION: BP 110/74 Pulse 72 Temp 37.1 C (98.7 F) (Temporal) Wt 64.6 kg (142 lb 8 oz) LMP 08/27/2022 (Exact Date) GENERAL: alert and active in no apparent distress EYES: conjunctiva clear EARS: TMs translucent: bilaterally NOSE/SINUSES: no erythema or exudate OROPHARYNX: no lesions, no erythema NECK: supple, no adenopathy CARDIOVASCULAR: Normal rate, regular rhythm, no murmur LUNGS: clear to auscultation bilaterally, good air exchange, no retractions ABDOMEN: soft, nondistended, normal bowel sounds. Tenderness: present, mild Periumbilical Masses: none Organomegaly: none Rectal: deferred MUSCULOSKELETAL: Extremities with FROM and no problems identified. SKIN: No rashes, lesions or skin changes ASSESSMENT/PLAN: Julian Whitney is a 17 year old female who presents with abdominal pain. Encounter Diagnosis ICD-10-CM 1. Periumbilical abdominal pain R10.33 CBC + DIFF COMP METABOLIC PANEL SED RATE WESTERGREN - Worrisome signs and symptoms discussed with patient and caregiver. - Reviewed indications for labs as ordered. -If labs are normal I would consider follow-up with [facility] as the pain started with some temporal relationship to her new OCPs. -If [facility] does not feel it is related that I would consider GI referral SIGNATURE: Ramin Plunkett MD PATIENT NAME: Julian Whitney DATE: December 04, 2022 TIME: 7:20 PM documented in this encounter [facility] 11-12-2022 History of Present illness Narrative This note was created using NoteWriter. Subjective Julian Whitney is a 17 year old female. HPI 17-year-old female presents for severe abdominal pain x2 to 3 days. Patient states that she has been having periumbilical abdominal pain for about 3 days. States that the pain is pretty constant. Eating does not make the pain better or worse. She has never had pain like this in the past. She does still have her appendix. She has not had any vomiting or diarrhea. No constipation. No fevers or chills. She has had slightly decreased appetite. No sick contacts. No cough or URI symptoms. No concern for . No vaginal discharge. No hematuria or dysuria Review of Systems Constitutional: Negative for chills and fever. HENT: Negative for congestion, ear pain and sore throat. Respiratory: Negative for cough and shortness of breath. Cardiovascular: Negative for chest pain. Gastrointestinal: Positive for abdominal pain. Negative for diarrhea and vomiting. Objective BP 100/74 Pulse 64 Temp 36.4 C (97.6 F) Resp 21 Wt 65.7 kg (144 lb 12.8 oz) LMP 08/27/2022 (Exact Date) SpO2 98% Physical Exam Vitals and nursing note reviewed. Constitutional: General: She is not in acute distress. Appearance: Normal appearance. She is not toxic-appearing. HENT: Nose: Nose normal. Mouth/Throat: Mouth: Mucous membranes are moist. Eyes: Conjunctiva/sclera: Conjunctivae normal. Cardiovascular: Rate and Rhythm: Normal rate and regular rhythm. Pulmonary: Effort: Pulmonary effort is normal. Breath sounds: Normal breath sounds. Abdominal: General: Abdomen is flat. Palpations: Abdomen is soft. Tenderness: There is abdominal tenderness in the right lower quadrant, periumbilical area and left lower quadrant. There is no right CVA tenderness, left CVA tenderness, guarding or rebound. Comments: Patient has periumbilical tenderness. Mild lower abdominal tenderness. No guarding or rebound. Skin: General: Skin is warm and dry. Neurological: Mental Status: She is alert. Assessment and Plan ASSESSMENT/PLAN: 1. Periumbilical abdominal pain - ICD9: 789.05, ICD10: R10.33 -Due to patient's abdominal pain with tenderness on exam and limited diagnostic capabilities in [facility], I recommended follow-up with squadron worker today or go to the emergency room. -Advised mom that patient does not have signs/symptoms concerning of a gastroenteritis or viral illness as she is having no vomiting or diarrhea. She is just having sharp mid abdominal pain. She has no urinary symptoms. She does not really have RLQ tenderness, guarding or rebound. Low suspicion for appendicitis at this point, although advised mother it could be early appendicitis. -Recommended follow-up with squadron worker today or proceed to the emergency room. Mom understands. They will likely go to ER. They are unsure which ER they will go to. Diagnosis and treatment plan were discussed and questions were answered to the patient's satisfaction. Pt acknowledged understanding of concepts and follow up plan. Specific signs and symptoms that would indicate the need for higher level of care were discussed in detail warranting prompt ER evaluation. RELL Dangelo documented in this encounter [facility] 09-11-2022 Miscellaneous Notes Patient phones requesting refills as follows: Requested Prescriptions Pending Prescriptions Disp Refills ferrous sulfate 325 mg (65 mg iron) tablet [Pharmacy Med Name: FERROUS SULFATE 325 MG TABLET] 30 tablet 2 Sig: TAKE 1 TABLET BY MOUTH EVERY DAY WITH BREAKFAST Please review and advise. Wen Montana RN documented in this encounter [facility] 09-09-2022 Instructions Brianda Block APRN.DIGITAL SPECIALIST - 09/09/2022 11:57 AM EST Ibuprofen 600 mg every 6 hours OR Ibuprofen 800 mg every 8 hours OR Aleve 440-500 mg every 12 hours beginning 48 hours prior to menses and continue for 5-7 days. Oral Contraceptives: The Pill Beginning the Pill Pills come in either a 21 day pack or a 28 day pack. With the 21 day pack you will take one pill for 21 days then no pill for 7 days, during which time you will have what is known as withdrawal bleeding. The 28 day pack allows you to take a pill every day of the cycle with no interruptions. The first 21 pills are the pills with the active ingredients and the last 7 are the nonmedical pills (placebo) or they may contain iron. There will be bleeding during the week you are taking the nonmedical pills. The advantage to the 28 day pack is that you don t have to keep track of when you stopped the pill. There are a group of 28 day pills that contain 24 active pills and only 4 placebo pills. These are formulated to give you a decorator mannequin period. Unless otherwise instructed, you should start your pills the Thursday following your first day of bleeding with your next period (if your period starts on a Thursday, you should start pills the same day) Read your information packet that comes with the pills. Pill Benefits The pill is the most popular method of reversible control being used today. Millions of women rely on oral contraceptives as their control method. It is important to have an examination by your physician to determine if the pill is safe for you. There are several advantages associated with the pill: it is 97-98% effective when used correctly; may improve acne; periods are more regular and less painful; there is less iron deficiency anemia in pill users. long term care social worker use is associated with a decreased incidence of ovarian and uterine cancer. There is also no evidence that the pill increases the incidence of any cancer. How Oral Contraceptives Work Oral contraceptives come in two varieties. One is the combination pill which contains both estrogen and progesterone. Combination pills are considered 98-99% effective in preventing . This pill comes in either monophasic, which delivers the same amount of estrogen and progesterone throughout the cycle; and triphasic, which try tries to mimic the normal hormone cycle by changing the levels of the hormones in the pills during the month. There is no real advantage to taking the one over the other. The other type of pill only contains progesterone. It is best used for women who can t take estrogen. This type of pill is slightly less effective than the combination pill in preventing . It is VERY important to take the progesterone only pill at the same time every day. Oral contraceptives prevent ovulation (release of an egg from the ovary) by suppressing the pituitary gland s action. The pill does NOT prevent sexually transmitted disease. Obtaining a Prescription It is important to see your doctor before starting oral contraceptives so that you can have a full medical history taken and a physical examination given. Certain medical conditions may make the pill inappropriate for you, therefore it is very important to be honest and as complete as possible with the information you share with your doctor. The types of predisposing factors which would make the pill a poor choice of control would include: History of blood clots Stroke Serious liver disease or impaired liver function Unexplained vaginal bleeding or Cancer of the reproductive system Active gall bladder disease Hypertension Possible Side Effects It can take up to three months for your body to become adjusted to the pill. The more common side effects experienced at this time are: breakthrough spotting or bleeding, which is bleeding at any other time other than when you should be having a period; nausea or vomiting; breast tenderness; and mild fluid retention. There is no intermediate weight gain with the use of the pill. Breakthrough bleeding is the most common complaint of new pill users. There is no way to predict who will have it and there is no way of preventing it. Breakthrough bleeding usually subsides on its own with no further treatment after the first three months of taking the pill. If these symptoms continue to occur after the first three months you should check with your physician to see if there is any physical cause and possibly change to another control pill. Problems: Missed 1 pill: Take 2 pills the next day. Missed 2 pills: Take 2 pills the next day and 2 pills the following day. Also use another form of control (condoms) along with the pill for the rest of the month. Missed 3 or more pills: You have two choices. You can take two pills each day until you are on schedule, plus use an additional form of control along with the pill for the rest of the month. Or you can stop the pill and start a completely new pack of pills the next Thursday. You must use another form of control with the pill for at least the first two weeks of the new pack. You re ill and you have been vomiting or have diarrhea: You must use another form of control with the pill since the pill may not be fully absorbed during your illness. Continue to use the added control until the end of the cycle. Desire to become : Stop using the pill for one month before trying to become . Taking other medications: The control pill is less effective when you take the antibiotic Rifampin, epilepsy (seizure) drugs such as phenytoin, carbamazepine, phenobarbital, topiramate and some medications for HIV. Let your doctor know if you start taking any of these medications while on the pill. Symptoms to Notify Your Doctor with Immediately: Pain in your chest or legs Continuous blurred vision Severe headaches Slurred speech Tingling or weakness on one side of your body Shortness of breath Swelling of one leg Refills of Control Pills You need to see a doctor every year for a refill of your prescription. This is necessary in order that your health can be monitored closely while you are taking control pills. If your prescription should before your next scheduled appointment you can usually get a one month extension from your doctors office if you call during regular business hours about one week before you need to start the new package of pills. This allows the physician to refer to your chart for necessary health information. documented in this encounter [facility] 09-09-2022 History of Present illness Narrative Dental Services Director offered: Patient declines. Julian Whitney is a 17 year old female who presents for problem visit contraception. Accompanied by mother. HPI: Had been taking MADELINE but stopped it 6 months ago because she did not feel like it was helping her premenstrual back pain that occurs week prior to menses as much as she expected . Back pain tapers during menses. Pain did not improve as much as she expected but made it at least bearable and now pain has worsened again. MADELINE helped acne but did not help acne to upper cheeks as much. Midol and heat are somewhat effective. Would like to discuss contraceptive method that also helps acne. OB History T0 L0 SAB0 IAB0 Ectopic0 Multiple0 Live Births0 Inspector Conveyor Line History LMP: 08/27/2022 (Exact Date), Having periods Age at Menarche: Age at First : Age at Menopause: Inspector Conveyor Line History Comments: Sexual Activity: Never; No partner data on record Contraception: No contraception data on record PAST MEDICAL HISTORY Diagnosis Date Anemia, unspecified NEGATIVE MEDICAL HISTORY normal color vision PAST SURGICAL HISTORY Procedure Laterality Date TONSILLECTOMY & ADENOIDECTOMY <AGE 12 [address] Stiven Fuller FAMILY HISTORY Problem Relation Age of Onset Diabetes Father Macular Degen Father Heart Sister WPW Diabetes Maternal Grandmother Heart Maternal Grandfather 54 [place]; arrthymia Hypertension Maternal Grandfather Social History Tobacco Use Smoking status: Never Smokeless tobacco: Never Vaping Use Vaping Use: Never used Substance Use Topics Alcohol use: No Drug use: No Current Outpatient Medications Medication Sig ferrous sulfate 325 mg (65 mg iron) tablet Take 325 mg by mouth. No current facility-administered medications for this visit. Allergies As of Date: 09/09/2022 (No Known Allergies) Fully Assessed 09/09/2022 REVIEW OF SYSTEMS Abdomen: No bloating, early satiety, indigestion, or increased flatulence. No abdominal pain, nausea, vomiting, diarrhea, or constipation. Allergies and current medication updated:Yes EXAM: BP 102/60 Wt 140 lb (63.5kg) LMP 08/27/2022 GENERAL: pleasant, female in no apparent distress DERMATOLOGY: cystic acne to face CHEST: Normal inspiratory effort NEURO: alert and oriented x3,exam grossly non-focal ASSESSMENT/PLAN: 1. Dysmenorrhea - ICD9: 625.3, ICD10: N94.6 (primary diagnosis) - DROSPIRENONE 3 MG-ETHINYL ESTRADIOL 0.03 MG TABLET 2. Acne vulgaris - ICD9: 706.1, ICD10: L70.0 - DROSPIRENONE 3 MG-ETHINYL ESTRADIOL 0.03 MG TABLET 3. Surveillance for control, oral contraceptives - ICD9: V25.41, ICD10: Z30.41 - RX for Tisha given today - changed from Sprintec - discussed with patient on how to take OCP's. - counseled on benefits, risks and possible severe side effects of OCP's. - discussed need to use Condoms to help to prevent STD's including HIV etc. - DROSPIRENONE 3 MG-ETHINYL ESTRADIOL 0.03 MG TABLET Follow-up as needed and at annual exam. Brianda Block APRN.SUMAN Medical Decision Making: Problems: Moderate: 1+ chronic illnesses with change Risk: Moderate: Drug management Medical Decision Making Level: 4 - Moderate documented in this encounter [facility] 07-16-2022 History of Present illness Narrative ACT sent via [employer]. Patricia Swain RN Asthma Home Monitoring Program [facility] Outreach [facility] nurses, Pt is flagging for ACT. AAP is discontinued. Last Albuterol refill 10/16/21. Last [facility]. Are you able to please send ACT to parent and resume/update AAP if needed from ? Thank you, Liberty Bernal, RN Chart reviewed for [facility]-Pt up to date with [facility]. Needs ACT/AAP. Patient is currently not eligible for Pediatric [facility] Asthma Home Monitoring Program. Patient is not followed by specialty care for asthma. Has not had a prednisone course in the last 6 months. Has not had an admission or ED visit for asthma in the last 12 months. No obvious SDH. Reason for outreach: chart review Contact made: No contact at this time. SIGNATURE: Liberty Bernal RN PATIENT NAME: Julian Whitney DATE: July 16, 2022 TIME: 3:34 PM documented in this encounter [facility] 06-28-2022 History of Present illness Narrative Pediatric and Congenital Heart Rhythm / Electrophysiology Clinic Patient Name: Julian Whitney Date of : 2005 Date of Visit: 06/28/[address] Janette Pinto for an opinion regarding syncope. My final recommendations will be communicated back to the requesting physician by way of shared Medical record or letter to requesting physician via US mail. Reason for Consultation: Syncope, family history WPW The history is provided by Julian and her mother. History of Present Illness: Julian Whitney is a 16 year old female seen by Pediatric Electrophysiology at the [facility] on June 28, 2022 in consultation for syncope. Julian Whitney experienced syncope while at [facility] on 05/24/2022. She experienced blurred vision then dark vision followed by heart racing just prior to her event. She was unconscious for about 10 seconds and woke up with a headache. She states that for weeks prior she experienced similar pre-syncopal symptoms without loss of consciousness. Julian was seen by Dr. Janette Pinto at that time and an ECG was performed which showed sinus bradycardia. She was referred to our service for further evaluation. She was placed on an iron supplement though is not anemic. She has not had syncope prior or since. Of note, Julian was seen by our service on 07/26/2018 for musculoskeletal chest pain. Her ECG was normal at that time and we follow her twin sister (Zan) for Dkclu-Dksliqfjb-Swgak syndrome. Zan had a successful ablation by our service and is doing well. Cardiac Review of Systems: Julian complains of syncope as above and is otherwise doing well. Unless otherwise noted, Julian is asymptomatic from a cardiovascular standpoint including no palpitations, chest pain, syncope, dyspnea, cyanosis, edema or activity intolerance. She participates in volleyball and band without incident. Review of Systems: The remainder of the review of systems is negative. Past Medical History: PAST MEDICAL HISTORY Diagnosis Date NEGATIVE MEDICAL HISTORY normal color vision Social History: Julian lives with her twin sister, mother, father (older sister out of the house and ) and two older brothers that also live out of the house. Julian and is currently in 11th grade. Cardiac Family History: FAMILY HISTORY Problem Relation Age of Onset Diabetes Father Macular Degen Father Heart Sister WPW Diabetes Maternal Grandmother Heart Maternal Grandfather 54 [place]; arrthymia Hypertension Maternal Grandfather No additional history of syncope, seizures, arrhythmias, drownings, single car accidents, sudden cardiac , early pacemaker or ICD implantation or congenital deafness. Medications: ferrous sulfate 325 mg (65 mg iron) tablet Take 1 tablet by mouth daily with breakfast. Allergies: ALLERGIES No Known Allergies Physical Examination: BP 109/73 (BP Site: Right Arm, BP Position: Sitting, BP Cuff Size: Regular Adult) Pulse 73 Temp 36.6 C (97.8 F) (Temporal) Resp 20 Ht 168.5 cm (5' 6.34) Wt 63.5 kg (140 lb) LMP 05/29/2022 (Exact Date) SpO2 97% BMI 22.37 kg/m General appearance: alert, oriented and in no apparent distress Skin: Skin color, texture, turgor normal, no suspicious rashes or lesions HEENT: normocephalic, non-dysmorphic, moist mucous membranes, no central cyanosis, and conjuctivae clear Lungs: clear to auscultation, without rales or wheeze, good air exchange Heart: quiet precordium with no heave or thrill, regular rate, normal S1, normal and physiologically splitting S2, no systolic murmur, diastole quiet, and no clicks, rubs or gallops Abdomen: soft, nontender, and liver not enlarged Extremities: upper and lower extremity pulses normal with no brachio-femoral delay, no cyanosis, clubbing or peripheral edema, and no obvious skeletal deformities Musculoskeletal: No joint swelling, deformity, or tenderness Electrocardiogram: I have reviewed and interpreted the ECG 07/26/2018 - sinus bradycardia, normal intervals, normal ECG 05/26/2022 - sinus bradycardia, normal intervals, normal ECG 06/28/2022 - sinus bradycardia, normal intervals, normal ECG Impression: Julian is a 16 year old female with vasovagal syncope. Her family history is significant for a twin sister that is followed by our service for Pskrq-Alnxsbaww-Cudgt syndrome which was successfully ablated. Fortunately, WPW is not considered familial in isolated cases. Moreover, Julian has had several normal ECGs in our system, including today. Julian's cardiovascular examination is also normal. We discussed the diagnosis of vasovagal syncope in detail including etiology, treatment and prognosis. Recommendations: 1. No exercise or activity restrictions 2. Increase fluid and salt intake as discussed 3. Sit or lay flat should a prodrome recur 4. No follow-up in EP required at this time Thank you very much for allowing us to participate in Julian's care. Please do not hesitate to contact our clinic with any questions regarding Julian's management. Sincerely, Mark Sheehan MD, [facility] [place] Pediatric Electrophysiology [facility] June 28, 2022, 10:31 AM I spent a total of 40 minutes on the date of the service which included preparing to see the patient, [id number] patient care, completing clinical documentation, obtaining and/or reviewing separately obtained history, performing a medically appropriate examination, counseling and educating the patient/family/caregiver, ordering medications, tests, or procedures, independently interpreting results (not separately reported), communicating results to the patient/family/caregiver, and care coordination (not separately reported). documented in this encounter [facility] 06-12-2022 History of Present illness Narrative WELL VISIT PEDIATRIC FEMALE 14-17 YRS OLD SERVICE DATE: 06/12/2022 Julian is a 16 year old female who presents today for well exam accompanied by her self. SUBJECTIVE CONCERNS: Seen by Dr. Soto for dizziness and syncopal episode. EKG showed bradycardia at 48. Sister has WPW but patient has been seen before by cardiology and had normal EKGs in the past. Labs done ideation ferritin level 12.6. CBC normal. Glucose was 62. Refered to pediatric cardiology for further evaluation. Has an appointment on June 28. Has started iron supplements. Trying to take more fluid. 2 Days ago was seen by Dr. Strong for headache. Maxalt prescribed. Patient says this worked well and she has not had any further headaches. HISTORY ACTIVE PROBLEM LIST Mild Intermittent Asthma - 06/15/2018 PAST MEDICAL HISTORY Diagnosis Date NEGATIVE MEDICAL HISTORY normal color vision PAST SURGICAL HISTORY Procedure Laterality Date TONSILLECTOMY & ADENOIDECTOMY <AGE 12 [address] Stiven Fuller ALLERGIES No Known Allergies Medications: rizatriptan ([employer] SAMPLER) 10 mg disintegrating tablet 1 tablet by mouth today and repeat a second dose in 2 hours. May dose again on 06/11/2022 if needed. ferrous sulfate 325 mg (65 mg iron) tablet Take 1 tablet by mouth daily with breakfast. FAMILY HISTORY Problem Relation Age of Onset Diabetes Father Macular Degen Father Heart Sister WPW Diabetes Maternal Grandmother Heart Maternal Grandfather 54 [place]; arrthymia Hypertension Maternal Grandfather Social History Social History Narrative Not on file Smoking Exposure: Does your child spend a significant amount of time in the care of anyone who smokes? No School: Grade: 11th; grades A and B. Physical Activity: more than 1 hour of physical activity per day Screen Time totaling less than 2 hours of screen time per day. Safety: Reviewed seat belts and smoke detectors Diet: -Eats 3 meals per day and 2 snacks per day -Typical beverages include water -Fruits and vegetables are eaten with nearly every meal and eaten as snacks -# of fast food meals/week: 1-2 -Vitamins/Supplements: none Elimination: no concerns, normal size and consistency Dental: dental care current Sleep: -no sleep concerns Gynecological history: LMP: 05/29/22 Cycles are regular and last 3 days. Dysmenorrhea: none Heavy periods: no Substance use: none High risk behaviors: none Sexual History: Attraction: male Sexually Active: No Body image: satisfactory Screening tools reviewed and discussed with patient/[id number]-[id number]-Z and Social Determinants of Health. Please see Patient Entered Data. REVIEW OF SYSTEMS GENERAL: No fevers EYES: No vision concerns ENT: No hearing concerns RESPIRATORY: Negative for cough, wheezing or respiratory distress CARDIOVASCULAR: Negative for chest pain, syncope, lightheadness or heart racing SKIN: Negative for lesions, rash, and itching ENDOCRINE: No growth concerns OBJECTIVE Physical Exam: BP 100/54 Pulse 84 Temp 36.2 C (97.2 F) (Temporal) Resp 18 Ht 168.4 cm (5' 6.3) Wt 63.5 kg (140 lb) LMP 05/29/2022 (Exact Date) BMI 22.39 kg/m Blood pressure percentiles are 15 % systolic and 9 % diastolic based on the 2017 AAP Clinical Practice Guideline. This reading is in the normal blood pressure range. General: Well developed, No acute distress Head: normocephalic Eyes: conjunctivae/corneas clear Ears: normal external ear and canal, tympanic membranes with normal landmarks Nose: no erythema or rhinorrhea Oropharynx: moist mucous membranes, no erythema or exudate Neck: Supple, no adenopathy; thyroid symmetric, normal size, no bruits Spine: Back symmetric, no curvature Resp: lungs clear to auscultation Heart: RRR, normal S1 and S2. , No murmurs Abdomen: Soft, nontender, nondistended, no palpable organomegaly or masses, normal bowel sounds Extremities: No clubbing, cyanosis, or edema., No deformities or skin discoloration. Good capillary refill. Full range of motion. Neuro: No focal deficits or abnormal findings present Skin: no rashes, lesions or jaundice ASSESSMENT Encounter for routine child health examination w/o abnormal findings (primary encounter diagnosis) Encounter for immunization Headache disorder Low ferritin level PLAn Cardiology evaluation Continue iron supplements. Headache diary if encouraged. Increase fluid and other lifestyle modifications recommended by Dr. Patel Based on PHQ-A Score: 1 (recommended cut off score is 11) and interview, presentation is not consistent with depression - Adolescent anticipatory guidance discussed. - Discussed diet and safety. - Dental care discussed. - Bright Futures handout given (See Patient Instructions). - Parent/guardian was counseled [id number] by myself (the billing provider) for the following immunizations and vaccine components, including side effects: Influenza and MenQuadFi. Parent/guardian consents for immunization and understands risks and benefits. A VIS sheet on each immunization was given to the parent/guardian. - Follow up in one year for routine physical. Breanna Rodrigues MD documented in this encounter [facility] 06-12-2022 Instructions Kandice Callejas Ma - 06/12/2022 11:37 AM EDT Images from the original note were not included. 5 to Go!TM Healthy Kids Inside & Out 5 Eat FIVE fruits and veggies a day 4 Give and get FOUR compliments a day 3 Consume THREE calcium products a day 2 Limit media time to TWO hours a day 1 Get at least ONE hour of exercise a day 0 Consume ZERO sugar-sweetened drinks Go! Be healthy, inside and out! [email or web address] Adolescent to Adult Transition Program [facility] cares about helping you and each of our adolescents and young adults make a smooth transition to adult care. If your current doctor is a squadron worker, we will work with you to decide the correct age for moving your care to a doctor or other provider who takes care of adults. We suggest that this move take place before age 22. Our office policy is to prepare you to move to a doctor or other provider who takes care of adults. This includes helping you find a doctor or other provider, sending medical records, and talking about any special needs with the new doctor or other provider. If your current doctor is in family medicine, [facility] will prepare you and your family for the transition to being an adult patient. You will be able to make your own healthcare decisions and will have an adult care team that meets your personal healthcare needs. At age 18, by law, we need your agreement to discuss personal health information with your family. We understand and respect that you may want to include your family in healthcare choices and will partner with you on how and when to include your family in decisions. We will make sure you know what changes to expect. We will also strive to make sure that all care team providers know your needs. We will help you find community resources and specialty care, if needed. Having your information before you come for the first time helps us be sure we do not miss any details. If joining our practice from outside [facility], we will help you request your medical record from past doctor(s) before your first visit. We will make every effort to work with your past providers to ensure a smooth transition and experience. We are always here for you. If you have any questions or concerns, please contact your primary care team or e-mail [email or web address] Got Transition is the federally funded national resource center on health care transition (HCT). Its aim is to improve transition from pediatric to adult health care through the use of evidence-driven strategies for health healthcare advisory services manager, youth, young adults, and their families. www.iPinYouition.org https://Sandboxx.org/resourc e/?bgt-qeestn-mknqnyy Healthy Children Ages & Stages Texting Program HealthyChildren.org is an AAP ([place] [employer]) parenting website. It is a great resource for information. They have a new Ages & Stages texting program available to parents. Fill out the information in the link below to start getting helpful tips and resources from AAP experts right to your phone. Be sure to include your child's age so they can send you age appropriate information. https://www.RewardsForce.org/E finesselish/tips-tools/HealthyChildren -Texting-Program/Pages/default.as px documented in this encounter [facility] 06-10-2022 Instructions Damien Patel MD - 06/10/2022 2:21 PM EDT Take Maxalt 10 mg plus Ibuprofen 400 mg. In 2 hours take a second Maxalt 10 mg plus one extra strength Tylenol. Can repeat this on 06/11/2022 if the headache is still present. Maxalt: May take 2 doses of Maxalt in one day, 4 doses and 2 consecutive days, no more than 8 doses per month. Lifestyle measures that may reduce the number of headaches include: Avoiding cigarettes, caffeine, and alcohol Exercising regularly Getting enough sleep each night, minimum of 8 hours. Eating regular meals Drink 40 to 60 ounces of water daily documented in this encounter [facility] 06-10-2022 History of Present illness Narrative 16-year-old female presents to the office today with her mother for complaints of 3 days of headache. Headache is located in the forehead. Middle of the forehead. No radiation. Described as squeezing. For the first 2 days it was pretty persistent but has lessened and is intermittent the last 24 hours. Currently is 4 out of 10 on the pain scale. Worst 8 out of 10. Patient has used ibuprofen and Aleve without any relief of her headache. She denies any head trauma. She denies syncope. She does report photophobia and phonophobia with the headache. No visual changes. No nausea, vomiting or abdominal pain. No upper or lower extremity weakness or paresthesias Family medical history is negative for migraines Sleep: Bedtime is between 11 PM and 12 AM. Sleep latency is 30 to 40 minutes. No frequent nighttime awakenings. Wakes at 6:30 AM. ACTIVE PROBLEM LIST Mild Intermittent Asthma PAST MEDICAL HISTORY Diagnosis Date NEGATIVE MEDICAL HISTORY normal color vision PAST SURGICAL HISTORY Procedure Laterality Date TONSILLECTOMY & ADENOIDECTOMY <AGE 12 [address] Stiven Fuller ALLERGIES No Known Allergies 06/10/22 1354 BP: 112/72 Pulse: 62 Resp: 16 Temp: 36.9 C (98.5 F) TempSrc: Temporal Weight: 63.8 kg (140 lb 9.6 oz) Height: 169 cm (5' 6.54) General: Well developed, No acute distress Head: normocephalic Eyes: Steady central gaze without nystagmus. Conjunctiva are clear without injection or discharge. No scleral icterus is present Ears: normal external ear and canal, tympanic membranes with normal landmarks Nose: no erythema or exudate Oropharynx: moist mucous membranes, palate intact Neck: Supple, no adenopathy; thyroid symmetric, normal size, no bruits Resp: lungs clear to auscultation, easy respirations without grunting flaring or retracting CV: Regular rate and rhythm. No murmurs are present. Extremities: No clubbing, cyanosis, or edema., No deformities or skin discoloration. Good capillary refill. Full range of motion. Skin: no rashes, lesions or jaundice NEUROLOGICAL EXAM: Julian is alert and oriented times three Speech is Speech fluent and appropriate Cranial Nerves: Pupils are equal and reactive to light. Extraocular movements grossly intact Visual jorge are full to confrontation. Facial, motor and sensory exam is symmetric Tongue is in midline. Palate is upgoing bilaterally Muscle strength examination Action Right Left Hip flexion, L2-L3 5/5 5/5 Knee extension, L3-L4 5/5 5/5 Ankle dorsiflexion, L4-L5 5/5 5/5 Hip extension, L4-L5 5/5 5/5 Knee flexion, L5-S1 5/5 5/5 Ankle plantar flexion, S1-S2 5/5 5/5 Shoulder abduction, C5, axillary 5/5 5/5 Elbow flexion, C5-C6, musculocutaneous 5/5 5/5 Elbow extension, C6-C7, radial 5/5 5/5 Wrist extension, C6-C7, radial 5/5 5/5 Wrist flexion, C7-C8, median 5/5 5/5 Finger flexion, C8, median 5/5 5/5 Finger extension, C8, radial 5/5 5/5 Finger abduction, T1, ulnar 5/5 5/5 0/5: no contraction 1/5: muscle flicker, but no movement 2/5: movement possible, but not against gravity (test the joint in its horizontal plane) 3/5: movement possible against gravity, but not against resistance by the examiner 4/5: movement possible against some resistance by the 5/5: normal strength Brookelyn is without significant pronator drift. [id number] is intact without dysmetria Rapid alternating movements are smooth in the hands without dysdiadochokinesia Gait normal station and stride. Tandem gait intact. Able to walk on heels and toes. . Romberg's sign negative Impression: (R51.9) Headache disorder (primary encounter diagnosis) Plan: Office Visit on 06/10/22 rizatriptan (MAXALT LABORATORY SAMPLER) 10 mg disintegrating tablet Take Maxalt 10 mg plus Ibuprofen 400 mg. In 2 hours take a second Maxalt 10 mg plus one extra strength Tylenol. Can repeat this on 06/11/2022 if the headache is still present. Maxalt: May take 2 doses of Maxalt in one day, 4 doses and 2 consecutive days, no more than 8 doses per month. Lifestyle measures that may reduce the number of headaches include: Avoiding cigarettes, caffeine, and alcohol Exercising regularly Getting enough sleep each night, minimum of 8 hours. Eating regular meals Drink 40 to 60 ounces of water daily I spent a total of 35 minutes on the date of the service which included preparing to see the patient, [id number] patient care, completing clinical documentation, obtaining and/or reviewing separately obtained history, performing a medically appropriate examination, counseling and educating the patient/family/caregiver, and ordering medications, tests, or procedures. Follow-up prn Damien Patel MD [facility] Department of Pediatrics, [facility] documented in this encounter [facility] 06-06-2022 Miscellaneous Notes Mother notified, transferred to scheduling Wen Montana RN Yes, I would still follow up with cardiology. Janette Pinto MD Patient's request for medication is as follows: Requested Prescriptions Signed Prescriptions Disp Refills ferrous sulfate 325 mg (65 mg iron) tablet 30 tablet 2 Sig: Take 1 tablet by mouth daily with breakfast. Authorizing Provider: JANETTE PINTO Prescription(s) as above. Please process accordingly. Janette Pinto MD Mom was notified of advice and/or results. Pharmacy info is in. Mom wonders if pt still needs to follow up with cardiology? Left message to call the office Wen Montana RN Lab results reveal signs of iron deficiency including low ferritin and low transferrin saturation. This may be contributing to her symptoms of dizziness. She is not yet anemic and her blood counts look good. Her clotting levels are normal and her Vitamin D level is normal. We should put her on an iron supplement and recheck her level in 3 months. Her glucose level was also low when we checked her labs. We can recheck that when we do her blood work again in 3 months. In the meantime she should be eating 3 meals a day and some small snacks. Please verify pharmacy. Janette Pinto MD documented in this encounter [facility] 05-26-2022 History of Present illness Narrative MEDICAL STUDENT PEDIATRIC SICK VISIT SERVICE DATE: 05/26/2022 Attending Note TEACHING PHYSICIAN NOTE OF PERSONAL INVOLVEMENT IN CARE: I have personally seen and examined the patient and performed the medical decision-making components. I have reviewed the medical student documentation and verified the findings in the note as written. Any additions or changes are noted in bold/italics. Signature: Janette Pinto MD Date: 06/02/2022 Time: 6:06 PM This note was generated by a MEDICAL STUDENT working under the supervision of an Attending Physician. As applicable, the findings, conclusions, and assessment of risk have been confirmed by a qualified provider. The note is NOT considered authenticated until addended and co-signed by the Attending Physician at the beginning of this note. SUBJECTIVE: Julian Whitney is a 16 year old female accompanied by mother for evaluation of A syncopal episode. History was obtained from: mother and patient HPI: Last Thursday the patient fainted while at [employer]. Before she fainted she experienced her vision blurring then going black along with her heart racing. She had experienced similar symptoms without syncope stating a couple of weeks earlier. These tend to occur when the patient is active. She has also experienced 3-4 dizzy episodes following the syncopal event. Since then the patient reports having a tightness in her chest. She has a twin sister who had low iron, and a hx of WPW. Duration of Symptoms: 2 weeks HISTORY: ACTIVE PROBLEM LIST Mild Intermittent Asthma PAST MEDICAL HISTORY Diagnosis Date NEGATIVE MEDICAL HISTORY normal color vision PAST SURGICAL HISTORY Procedure Laterality Date TONSILLECTOMY & ADENOIDECTOMY <AGE 12 [address] Stiven Fuller Allergies: ALLERGIES No Known Allergies Medications: norgestimate 0.25 mg-ethinyl estradiol 35 mcg (SPRINTEC) 0.25-35 mg-mcg per tablet Take 1 tablet by mouth once daily. albuterol (PROVENTIL) 2.5 mg /3 mL (0.083 %) nebulizer solution Use 3 mL via nebulizer every 4 hours as needed (cough/wheezing/shortness of breath). REVIEW OF SYSTEMS: GENERAL: Negative for fevers, Negative for weight loss and malaise HEENT: Positive for blurring of vision during dizzy spells, Negative for congestion or rhinorrhea. RESPIRATORY: reports feeling short of breath with activity CARDIOVASCULAR: positive for tightness in chest, negative for feeling skipped beats. OBJECTIVE: Temp 36.5 C (97.7 F) (Temporal Artery) Resp 18 Ht 169.7 cm (5' 6.81) Wt 66.8 kg (147 lb 4 oz) LMP 04/28/2022 (Exact Date) BMI 23.19 kg/m General: alert and active in no apparent distress Eyes: conjunctiva clear, PERRL Ears: TMs translucent: bilaterally Nose: no erythema or exudate OP: moist without lesions Neck: supple, no adenopathy Lungs: clear to auscultation bilaterally, good air exchange, no retractions CVS: Normal rate, regular rhythm, no murmur Abdomen: soft, nondistended, nontender, no hepatosplenomegaly or masses Skin: No rashes, lesions or skin changes ASSESSMENT/PLAN: Encounter Diagnosis ICD-10-CM 1. Dizziness R42 CBC + DIFF IRON + TIBC FERRITIN BLD VITAMIN D 25 HYDROXY COMP METABOLIC PANEL ECG COMPLETE CONSULT TO CARDIOLOGY TSH BLD T4 FREE/FREE THYROX 2. Chest pain, unspecified type R07.9 CONSULT TO CARDIOLOGY 3. Syncope, unspecified syncope type R55 CONSULT TO CARDIOLOGY PROTHROMBIN TIME/PT ACTIVATED PTT 4. Easy bruising R23.3 PROTHROMBIN TIME/PT ACTIVATED PTT EKG done today. Bradycardia noted. Labs as ordered. Will refer to cardiology for further evaluation given family history. Encouraged regular food and fluid intake Follow up for persistent or worsening symptoms, not drinking, decreased urination, or other concerns. SIGNATURE: Janette Pinto MD PATIENT NAME: Julian Whitney DATE: May 26, 2022 TIME: 11:15 AM documented in this encounter [facility] 05-26-2022 Instructions Janette Pinto MD - 05/26/2022 11:15 AM EDT 5 to Go!TM Healthy Kids Inside & Out 5 Eat FIVE fruits and veggies a day 4 Give and get FOUR compliments a day 3 Consume THREE calcium products a day 2 Limit media time to TWO hours a day 1 Get at least ONE hour of exercise a day 0 Consume ZERO sugar-sweetened drinks Go! Be healthy, inside and out! www.[facility].org/5toGo 5 to Go!TM Healthy Kids Inside & Out 5 Eat FIVE fruits and veggies a day 4 Give and get FOUR compliments a day 3 Consume THREE calcium products a day 2 Limit media time to TWO hours a day 1 Get at least ONE hour of exercise a day 0 Consume ZERO sugar-sweetened drinks Go! Be healthy, inside and out! www.[facility].org/5toGo documented in this encounter [facility] 05-24-2022 Miscellaneous Notes Unable to complete triage due to mother unsure of what all happened. States she got a call from endbander that patient passed out. No further information. Mother not with patient at time of call. Mom requesting an appointment for evaluation. I did offer same day appointment today but mother declined. Patient was scheduled for Thursday per mother's request. Mother to call office back when patient is home for further triage information and any further advice. Reason for Disposition Follows fainting or passing out Answer Assessment - Initial Assessment Questions 1. DESCRIPTION: Describe your child's dizziness. Dizzy, child not available during triage 2. SEVERITY: How bad is it? Can your child stand and walk? - MILD: walking normally - MODERATE: interferes with normal activities (school, play) - SEVERE: unable to walk, requires support to walk, feels like will pass out if tries to stand moderate 3. ONSET: When did the dizziness begin? Couple days 4. CAUSE: What do you think is causing the dizziness? unknown 5. RECURRENT SYMPTOM: Has your child had dizziness before? If so, ask: When was the last time? What happened that time? no 6. CHILD'S APPEARANCE: How sick is your child acting? What is he doing right now? If asleep, ask: How was he acting before he went to sleep? States she has not been feeling well Answer Assessment - Initial Assessment Questions 1. WHEN: When did it happen? This morning at band practice 2. LENGTH of FAINT: How long was your child passed out? (minutes) . Mom unsure, not with patient, was just called by endbander 3. CONTENT: Describe what happened while your child was passed out. Was at band practice 4. MENTAL STATUS: How is your child now? Do they know who and where they are and who you are? Mom unsure not with patient. States endbander took vitals and was normal per mom 5. TRIGGER: What do you think caused the fainting? What were they doing just before they fainted? (e.g., exercise, sudden standing up, prolonged standing, etc) unsure 6. WARNING SIGNS: Did your child feel any symptoms before they passed out? (e.g., dizzy, blurred vision, nausea) Unsure, mom reports patient has not been feeling well the past couple days, reports dizziness 7. FLUID INTAKE: How much fluid was taken over the last 12 hours? Are there any signs of dehydration? Unsure, mom states patient is drinking fluids 8. RECURRENT SYMPTOM: Has your child ever passed out before? If so, ask: When was the last time? and What happened that time? no 9. INJURY: Did they sustain any injury during the fall? Mother unsure, not with patient during triage call Protocols used: [id number], [id number] documented in this encounter [facility] 07-23-2018 History of Past i llness Narrative Problem Noted Date Resolved Date Chest pain 07/23/2018 06/16/2019 documented as of this encounter (statuses as of 05/24/2022) [facility] History of Past illness Narrative* Problem Noted Date Resolved Date Chest pain 07/23/2018 06/16/2019 documented as of this encounter (statuses as of 06/02/2022) [facility] History of Past illness Narrative* Problem Noted Date Resolved Date Chest pain 07/23/2018 06/16/2019 documented as of this encounter (statuses as of 06/06/2022) [facility] History of Past illness Narrative* Problem Noted Date Resolved Date Chest pain 07/23/2018 06/16/2019 documented as of this encounter (statuses as of 06/12/2022) [facility] History of Past illness Narrative* Problem Noted Date Resolved Date Chest pain 07/23/2018 06/16/2019 documented as of this encounter (statuses as of 06/16/2022) [facility] History of Past illness Narrative* Problem Noted Date Resolved Date Chest pain 07/23/2018 06/16/2019 documented as of this encounter (statuses as of 06/28/2022) [address]-2018 History of Past illness Narrative* Problem Noted Date Resolved Date Chest pain 07/23/2018 06/16/2019 documented as of this encounter (statuses as of 07/17/2022) [address]2018 History of Past illness Narrative* Problem Noted Date Resolved Date Chest pain 07/23/2018 06/16/2019 documented as of this encounter (statuses as of 09/09/2022) [address]2018 History of Past illness Narrative* Problem Noted Date Resolved Date Chest pain 07/23/2018 06/16/2019 documented as of this encounter (statuses as of 09/11/2022) [address] History of Past illness Narrative* Problem Noted Date Resolved Date Chest pain 07/23/2018 06/16/2019 documented as of this encounter (statuses as of 11/12/2022) [address] History of Past illness Narrative* Problem Noted Date Resolved Date Chest pain 07/23/2018 06/16/2019 documented as of this encounter (statuses as of 12/05/2022) [address] History of Past illness Narrative* Problem Noted Date Resolved Date Chest pain 07/23/2018 06/16/2019 documented as of this encounter (statuses as of 12/08/2022) [address] History of Past illness Narrative* Problem Noted Date Resolved Date Chest pain 07/23/2018 06/16/2019 documented as of this encounter (statuses as of 12/25/2022) [facility] November 12, 2022 10:50am Note Date/Time November 12, 2022 9 :49am [facility] Medical Records Department [address] [place] [address] Emergency Department Summary 11/12/22 MR#: [id number] Acct: [id number] Name: JULIAN WHITNEY Rep #:[id number] : 2005 17 From: Mark Scott MD PCP: Dr. Damien Patel MD Status:REG ER Location: ED HPI HPI - GI History of Present Illness Chief Complaint: Abd Pain Informant: patient and parent Narrative Narrative: Patient complaining of abdominal pain for about 3 days. She describes it as periumbilical. It is not moved or changed position or character. It does not radiate anywhere. She is able to eat and drink with no changes. She states sometimes eating might bother it a little bit but its not consistent. She denies acid reflux symptoms. No back pain. No change in her bowel habits or blood in the stool. No change in urination. Her last menstrual cycle was 2 weeks ago and normal. She denies pelvic pain or discharge. No history of priorabdominal pain, Crohn's disease, ulcerative colitis, irritable bowel or abdominal surgeries. PFSH PFSH Home Medications esomeprazole magnesium 20 mg capsule,delayed release (Nexium) 20 mg PO DAILY #30caps 11/12/22 [Rx Last Taken Unknown] Allergy/AdvReac Type Severity Reaction Status Date / Time No Known Allergies Allergy Verified 11/12/22 09:26 Social History Smoking Status: Never smoker ROS ROS ED Constitutional Constitutional ED: Denies chills, fever(s), subjective or sweats ENT ENT ED: Denies rhinorrhea or sore throat Cardiovascular Cardiovascular: Denies chest pain Respiratory/Chest Respiratory/Chest: Denies cough or dyspnea Gastrointestinal Gastrointestinal: Reports abdominal pain; Denies constipation, diarrhea, melena,nausea or vomiting Genitourinary Genitourinary ED: Reports LMP (females 10-50) Details: Comment: (2 weeks ago andnormal); Denies dysuria, hematuria or urinary frequency Musculoskeletal Musculoskeletal: Denies back pain or myalgias Integumentary Denies rash Neurologic Neurologic: Denies headache(s) Endocrine Endocrinology: Denies polydipsia or polyuria Hematologic/Lymphatic Hematologic/Lymphatic: Denies lymphadenopathy Allergic/Immunologic Allergic/Immunologic ED: Denies urticaria EXAM Physical Exam Const Vital Signs: 11/12/22 09:26 Temperature 96.2 F L Temperature Source Temporal Respiratory Rate 16 Blood Pressure 109/73 L Blood Pressure Mean 85 Pulse Ox 99 Oxygen Delivery Method Room Air Positive well nourished and well developed General Appearance ED: well developed and NAD; Negative for pallor HEENT Reports moist mucous membranes normocephalic and atraumatic Eyes EOMs intact bilaterally General Eye ED: Negative for pale conjunctiva or scleral icterus Neck supple Resp normal respiratory effort and clear to auscultation bilaterally Auscultation: Negative for rales, rhonchi or wheezes Cardio regular rate, regular rhythm and no murmurs GI non-tender, non-distended and no masses GI Narrative: There is no objective indication of tenderness on exam. Even when I press firmly in the periumbilical area that she describes as a source of pain she is not really tender. She does feel some pressure when I press over the bladder. She states sometimes when I press in the epigastric area she feels a little soreness but there is no objective tenderness. Certainly no rebound or guarding. I feel no mass. Auscultation: normoactive bowel sounds; Negative for hyperactive bowel sounds orhypoactive bowel sounds Palpation: soft Narrative: Patient has no CVA tenderness. She does have mild suprapubic tenderness. Back/Spine no CVA tenderness Extremity full ROM General Extremety ED: Negative for edema General Extremity: Negative for edema Neuro Sensorium / Orientation: alert Psych mental status grossly normal Skin no wounds General Skin Exam: Negative for jaundice or pallor MDM MDM MDM Narrative Medical decision making narrative: This patient has had 3 days of abdominal pain without fevers nausea vomiting change in bowel habits loss of appetite. Her exam is overall benign. I do not think imaging or CT would be necessary at this time. There is no sign of acute intra-abdominal process such as appendicitis. I do not think blood work is going to give us the answer. She has no fever nausea vomiting we would not CT her so I do not see an indication for CBC at this time. No radiation to the back. No right upper quadrant tenderness. I do not think liver function tests or lipase are needed. She most likely has some mild gastritis. With a little bit of suprapubic pressure with palpation I will check a UA. Patient's urinalysis is completely normal. No sign of infection or blood. Repeat exam shows the patient really to be asymptomatic. I talk with her her mother and father. Her mother was concerned that this could be early ulcer disease. I agree that this very well could be early ulcer disease or gastritis. For that reason we will treat with proton pump inhibitor. If she develops worsening pain, vomiting, fevers, blood in the stool or new or different symptoms or concerned they should return. 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 Lab Data Attestation: I reviewed the patient's lab results. Labs: Laboratory Results - last 24 hr 11/12/22 09:50 Urine Color Yellow Urine Clarity Clear Urine pH 6.0 Ur Specific Fowler 1.015 Urine Protein Negative Urine Glucose (UA) Normal Urine Ketones Negative Urine Occult Blood Negative Urine Nitrite Negative Urine Bilirubin Negative Urine Urobilinogen Normal Ur Leukocyte Esterase Negative Urine RBC 0 SEEN Urine WBC 0 SEEN Ur Squamous Epith Cells 0 SEEN Urine Bacteria 0 SEEN Urine Mucus 0 SEEN Urine Test Negative Discharge Plan Triage Chief Complaint: Abd Pain ED Provider: Mark Scott Dx/Rx/DC Orders Clinical Impression: Abdominal pain, Gastritis Instructions: Peptic Ulcer, ED Abdominal Pain Unkn Cause Fem Prescriptions: New esomeprazole magnesium [Nexium] 20 mg capsule,delayed release(DR/EC) 20 mg PO DAILY Qty: 30 0RF Primary Care Provider: Damien Patel Referrals: Damien Patel MD [Primary Care Provider] - 1 Week Disposition Disposition: Home, Self Care What to do if you have Problems For any increased pain, shortness of breath, bleeding, nausea or vomiting, chestpain, or any unexpected problems, contact your Primary Care Provider. Call [facility] ([phone]) or report to the closest Emergency Room. Call 911 if necessary. 11/12/22 1050 <Electronically signed by Mark Scott MD> Cosigner Signature (if applicable): CC: Dr. Damien Patel MD ~ Signed [facility] Work Phone: Evaluation note* Diagnosis Dizziness- Primary Dizziness and giddiness Chest pain, unspecified type Syncope, unspecified syncope type Easy bruising Other symptoms involving skin and integumentary tissues [facility] [place] [facility] Diagnosis Iron deficiency- Primary Iron deficiency anemia, unspecified Abnormal laboratory test result Other abnormal clinical finding documented [facility] this [facility] [place] [facility]* Diagnosis Encounter for routine child health examination w/o abnormal findings- Primary Routine or child health check Encounter for immunization Need for other specified prophylactic vaccination against single bacterial disease Headache disorder Headache Low ferritin level Other nonspecific findings on examination of blood documented [facility] Diagnosis Headache disorder- Primary Headache documented in this encounter [facility] note* Diagnosis History of bradycardia- Primary Other specified cardiac dysrhythmias Malaise and fatigue Other malaise and fatigue Dizziness Dizziness and giddiness Syncope, unspecified syncope type documented in this encounter [facility] note* Diagnosis Dysmenorrhea- Primary Acne vulgaris Other acne Surveillance for control, oral contraceptives Surveillance of previously prescribed contraceptive pill documented in this encounter [facility] note* Diagnosis Iron deficiency Iron deficiency anemia, unspecified documented in this encounter [facility] noteNo assessment information availableWUniversity [facility] Work Phone: [facility]* Diagnosis Periumbilical abdominal pain- Primary Abdominal pain, periumbilic documented in this encounter [facility] note* Diagnosis Periumbilical abdominal pain- Primary Abdominal pain, periumbilic documented in this encounter [facility] note* Diagnosis Iron deficiency Iron deficiency anemia, unspecified documented in this encounter [facility] note* Diagnosis Periumbilical abdominal pain- Primary Abdominal pain, periumbilic documented in this encounter [facility] note* Diagnosis Generalized abdominal pain- Primary Abdominal pain, generalized Periumbilical abdominal pain Abdominal pain, periumbilic documented in this encounter [facility] note* Diagnosis Syncope, unspecified syncope type- Primary documented in this encounter [facility] note* Diagnosis Encounter for routine child health examination without abnormal findings- Primary Routine or child health check Low ferritin level Other nonspecific findings on examination of blood documented in this encounter [facility] note* Diagnosis Generalized abdominal pain- Primary Abdominal pain, generalized Gastritis, presence of bleeding unspecified, unspecified chronicity, unspecified gastritis type Vasovagal syncope- Primary Syncope and collapse Family history of Zuoez-Hxgbtobzd-Pzjlo (WPW) syndrome Generalized abdominal pain Abdominal pain, generalized Nausea Nausea alone Weight loss, unintentional Loss of weight Early satiety documented in this encounter [facility] note* Diagnosis Abnormal weight loss- Primary Loss of weight Dyspepsia Dyspepsia and other specified disorders of function of stomach Generalized abdominal pain Abdominal pain, generalized documented in this encounter [facility] note* Diagnosis Dietary counseling- Primary Dietary surveillance and counseling Abnormal weight loss Loss of weight documented in this encounter [facility] note* Diagnosis Generalized abdominal pain- Primary Abdominal pain, generalized Nausea Nausea alone Dyspepsia Dyspepsia and other specified disorders of function of stomach documented [facility] this [facility] [place] [facility]* Diagnosis Dysmenorrhea- Primary General counseling and advice for contraceptive management Other general counseling and advice for contraceptive management Acne vulgaris Other acne documented in this encounter [facility] note* Diagnosis Insertion of implantable subdermal contraceptive- Primary documented in this [facility]* Diagnosis Sore throat- Primary Acute pharyngitis Otalgia of both ears Otalgia, unspecified [facility] [place] [facility] Diagnosis Viral illness- Primary Unspecified viral infection, in conditions classified elsewhere and of unspecified site Hearing loss due to cerumen impaction, right documented in this [facility] [place] [facility]* Diagnosis Eye irritation- Primary Other ill-defined disorder of eye [facility] Additional Instructions You are cleared to play volleyball. Follow-up with your PCP, return for any worsening of your symptoms.[facility] Work Phone: Reason for referral (narrative)* Outpatient Procedure (Routine) - Closed Specialty Diagnoses / Procedures Referred By Isaac bond Referred To [facility] Diagnoses History of bradycardia Malaise and fatigue Procedures ECG COMPLETE ECG ROUTINE ECG W/LEAST 12 LDS W/I&R Mark Sheehan MD [address] [place] [address] [facility] [place] [address] [place] [address] Referral ID Status Reason Start Date Expiration Date V isits Requested Visits Authorized [id number] Closed Auto-Generate d Referral 06/25/2022 06/25/2023 1 1 [facility] for referral (narrative)* Diagnostic Procedure Only (Routine) - Pending Review Specialty Diagnoses / Procedures Referred By Isaac bond Referred To Contact [facility] Diagnoses Dyspepsia Procedures NM GASTRIC EMPTYING SOLID GASTRIC EMPTYING STUDY Carolina Jordan MD [address] [phone] Molecular [facility] Functional Imaging [address] [place] [address] Referral ID Status Reason Start Date Expiration Date Visits Requested Visits Authorized [id number] Pending Review Auto-Generat ed Referral 01/01/2024 01/01/2025 1 1 * Consult, Test, Treat (Routine) - Authorized Specialty Diagnoses / Procedures Referred By Contac t Referred To Contact Pediatric Nutrition Diagnoses Abnormal weight loss Procedures CONSULT TO PED NUTRITION OFFICE/OUTPATIENT NEW HIGH MDM 60 MINUTES Carolina Jordan MD [address] [phone] Referral ID Status Reason Start Date Expiration Date Visits Requested Visits Authorized [id number] Authorized PCP Requested Referral 12/03/2023 12/02/2024 1 1 [facility] for referral (narrative)* Outpatient Procedure (Routine) - Authorized Specialty Diagnoses / Procedures Referred By Contac t Referred To Contact [facility] Diagnoses Dysmenorrhea General counseling and advice for contraceptive management Procedures NEXPLANON INSERTION ETONOGESTREL IMPLANT SYSTEM INSERT DRUG IMPLANT DEVICE Brianda Block APRN.CNP [address] [place] [address] [address] Referral ID Status Reason Start Date Expiration Date Visits Requested Visits Authorized [id number] Authorized Auto-Generat ed Referral 07/06/2024 07/06/2025 1 1 [facility] for referral (narrative)* Outpatient Procedure (Routine) - New Request Specialty Diagnoses / Procedures Referred By Contac t Referred To Contact [facility] Diagnoses Insertion of implantable subdermal contraceptive Procedures NEXPLANON INSERTION ETONOGESTREL IMPLANT SYSTEM INSERT DRUG IMPLANT DEVICE Brianda Block APRN.CNP [address] [place] [address] [address] [phone] Referral ID Status Reason Start Date Expiration Date Visits Requested Visits Authorized [id number] New Request Auto-Generat ed Referral 07/21/2025 1 1 [facility] Summary Purpose Family History No Family History Records FoundNo Family History Records FoundNo Family History Records FoundNo Family History Records Found Advance Directives No Advanced Directives Records FoundNo Advanced Directives Records FoundNo Advanced Directives Records FoundNo Advanced Directives Records Found Reason for Referral Specialty Diagnoses / Procedures Referred By Contac t Referred To Contact Cardiology Diagnoses Dizziness Chest pain, unspecified type Syncope, unspecified syncope type Procedures CONSULT TO CARDIOLOGY OFFICE/OUTPATIENT [facility] 60-74 MINUTES Janette Pinto MD [address] [place] [address] Referral ID Status Reason Start Date Expiration Date Visits Requested Visits Authorized [id number] Authorized PCP Requested Referral 05/26/2022 05/26/2023 1 1 Specialty Diagnoses / Procedures Referred By Contac t Referred To [facility] Diagnoses Dizziness Procedures ECG COMPLETE ECG ROUTINE ECG W/LEAST 12 LDS W/I&R Janette Pinto MD [address] [place] [address] [facility] [place] [address] [place] [address] Referral ID Status Reason Start Date Expiration Date Visits Requested Visits Authorized [id number] Pending Review Auto-Generat ed Referral 05/26/2022 05/26/2023 1 1 Specialty Diagnoses / Procedures Referred By Contact Referred To Contact Pediatric Gastroenterology Diagnoses Periumbilical abdominal pain Procedures CONSULT TO PEDS GASTRO OFFICE/OUTPATIENT [facility] 60-74 MINUTES Ramin Plunkett MD [address] [place] [address] Referral ID Status Reason Start Date Expiration Date Visits Requested Visits Authorized [id number] Authorized PCP Requested Referral 12/24/2022 12/24/2023 1 1 Chief Complaint and Reason for Visit Chief Complaint ABD PAIN Chief Complaint SYNCOPE Additional Source Comments INFORMATION SOURCE (unrecogn ized section and content) DATE CREATED AUTHOR 03/06/2020 [facility] DATE CREATED AUTHOR AUTHOR'S ORGANIZ ATION 01/08/2023 [facility] DATE CREATED AUTHOR AUTHOR'S ORGANIZ ATION 08/11/2023 [facility] DATE CREATED AUTHOR AUTHOR'S ORGANIZ ATION 11/19/2024 [facility] Source Comments (unrecognize d section and content) In the event this informatio n is protected by the Federal Confidentiality of Alcohol and Drug Abuse Patient Records regulations: The Federal rules restrict any use of the information to criminally investigate or prosecute any alcohol or drug abuse patient.[facility] the event this information is protected by the Federal Confidentiality of Alcohol and Drug Abuse Patient Records regulations: The Federal rules restrict any use of the information to criminally investigate or prosecute any alcohol or drug abuse patient.[facility] the event this information is protected by the Federal Confidentiality of Alcohol and Drug Abuse Patient Records regulations: The Federal rules restrict any use of the information to criminally investigate or prosecute any alcohol or drug abuse patient.[facility] the event this information is protected by the Federal Confidentiality of Alcohol and Drug Abuse Patient Records regulations: The Federal rules restrict any use of the information to criminally investigate or prosecute any alcohol or drug abuse patient.[facility] the event this information is protected by the Federal Confidentiality of Alcohol and Drug Abuse Patient Records regulations: The Federal rules restrict any use of the information to criminally investigate or prosecute any alcohol or drug abuse patient.[facility] the event this information is protected by the Federal Confidentiality of Alcohol and Drug Abuse Patient Records regulations: The Federal rules restrict any use of the information to criminally investigate or prosecute any alcohol or drug abuse patient.[facility] the event this information is protected by the Federal Confidentiality of Alcohol and Drug Abuse Patient Records regulations: The Federal rules restrict any use of the information to criminally investigate or prosecute any alcohol or drug abuse patient.[facility] the event this information is protected by the Federal Confidentiality of Alcohol and Drug Abuse Patient Records regulations: The Federal rules restrict any use of the information to criminally investigate or prosecute any alcohol or drug abuse patient.[facility] the event this information is protected by the Federal Confidentiality of Alcohol and Drug Abuse Patient Records regulations: The Federal rules restrict any use of the information to criminally investigate or prosecute any alcohol or drug abuse patient.[facility] the event this information is protected by the Federal Confidentiality of Alcohol and Drug Abuse Patient Records regulations: The Federal rules restrict any use of the information to criminally investigate or prosecute any alcohol or drug abuse patient.[facility] the event this information is protected by the Federal Confidentiality of Alcohol and Drug Abuse Patient Records regulations: The Federal rules restrict any use of the information to criminally investigate or prosecute any alcohol or drug abuse patient.[facility] the event this information is protected by the Federal Confidentiality of Alcohol and Drug Abuse Patient Records regulations: The Federal rules restrict any use of the information to criminally investigate or prosecute any alcohol or drug abuse patient.[facility] the event this information is protected by the Federal Confidentiality of Alcohol and Drug Abuse Patient Records regulations: The Federal rules restrict any use of the information to criminally investigate or prosecute any alcohol or drug abuse patient.[facility] the event this information is protected by the Federal Confidentiality of Alcohol and Drug Abuse Patient Records regulations: The Federal rules restrict any use of the information to criminally investigate or prosecute any alcohol or drug abuse patient.[facility] the event this information is protected by the Federal Confidentiality of Alcohol and Drug Abuse Patient Records regulations: The Federal rules restrict any use of the information to criminally investigate or prosecute any alcohol or drug abuse patient.[facility] Dublin[facility] the event this information is protected by the Federal Confidentiality of Alcohol and Drug Abuse Patient Records regulations: The Federal rules restrict any use of the information to criminally investigate or prosecute any alcohol or drug abuse patient.[facility] Dublin[facility] the event this information is protected by the Federal Confidentiality of Alcohol and Drug Abuse Patient Records regulations: The Federal rules restrict any use of the information to criminally investigate or prosecute any alcohol or drug abuse patient.[facility] Dublin[facility] the event this information is protected by the Federal Confidentiality of Alcohol and Drug Abuse Patient Records regulations: The Federal rules restrict any use of the information to criminally investigate or prosecute any alcohol or drug abuse patient.[facility] Dublin[facility] the event this information is protected by the Federal Confidentiality of Alcohol and Drug Abuse Patient Records regulations: The Federal rules restrict any use of the information to criminally investigate or prosecute any alcohol or drug abuse patient.[facility] Dublin[facility] the event this information is protected by the Federal Confidentiality of Alcohol and Drug Abuse Patient Records regulations: The Federal rules restrict any use of the information to criminally investigate or prosecute any alcohol or drug abuse patient.[facility] Dublin[facility] the event this information is protected by the Federal Confidentiality of Alcohol and Drug Abuse Patient Records regulations: The Federal rules restrict any use of the information to criminally investigate or prosecute any alcohol or drug abuse patient.[facility] Dublin[facility] the event this information is protected by the Federal Confidentiality of Alcohol and Drug Abuse Patient Records regulations: The Federal rules restrict any use of the information to criminally investigate or prosecute any alcohol or drug abuse patient.[facility] the event this information is protected by the Federal Confidentiality of Alcohol and Drug Abuse Patient Records regulations: The Federal rules restrict any use of the information to criminally investigate or prosecute any alcohol or drug abuse patient.[facility] the event this information is protected by the Federal Confidentiality of Alcohol and Drug Abuse Patient Records regulations: The Federal rules restrict any use of the information to criminally investigate or prosecute any alcohol or drug abuse patient.[facility] the event this information is protected by the Federal Confidentiality of Alcohol and Drug Abuse Patient Records regulations: The Federal rules restrict any use of the information to criminally investigate or prosecute any alcohol or drug abuse patient.[facility] the event this information is protected by the Federal Confidentiality of Alcohol and Drug Abuse Patient Records regulations: The Federal rules restrict any use of the information to criminally investigate or prosecute any alcohol or drug abuse patient.[facility] the event this information is protected by the Federal Confidentiality of Alcohol and Drug Abuse Patient Records regulations: The Federal rules restrict any use of the information to criminally investigate or prosecute any alcohol or drug abuse patient.[facility] Dublin[facility] the event this information is protected by the Federal Confidentiality of Alcohol and Drug Abuse Patient Records regulations: The Federal rules restrict any use of the information to criminally investigate or prosecute any alcohol or drug abuse patient.[facility] Dublin[facility] the event this information is protected by the Federal Confidentiality of Alcohol and Drug Abuse Patient Records regulations: The Federal rules restrict any use of the information to criminally investigate or prosecute any alcohol or drug abuse patient.[facility] Dublin[facility] the event this information is protected by the Federal Confidentiality of Alcohol and Drug Abuse Patient Records regulations: The Federal rules restrict any use of the information to criminally investigate or prosecute any alcohol or drug abuse patient.[facility] Dublin[facility] the event this information is protected by the Federal Confidentiality of Alcohol and Drug Abuse Patient Records regulations: The Federal rules restrict any use of the information to criminally investigate or prosecute any alcohol or drug abuse patient.[facility] the event this information is protected by the Federal Confidentiality of Alcohol and Drug Abuse Patient Records regulations: The Federal rules restrict any use of the information to criminally investigate or prosecute any alcohol or drug abuse patient.[facility] Reason for Visit (unrecogniz ed section and content) Reason Comments Syncope Reason Comments synscope LOC on 05/24/2022 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 Pt reports tightness of chest near sternum for past 5 days. Taking IBU 2 tab bid. Reports intermittent dizziness and headaches Headache Intermittent , near where she hit her head in fall but not exact Reason Comments Results Reason Comments Well Child 16 year check up Reason Comments Follow Up Headaches - states h as had for the last 3 days - has taken ibuprofen and does not help Reason Comments Consult Specialty Diagnoses / Procedures Referred By Contac t Referred To Contact Cardiology Diagnoses Dizziness Chest pain, unspecified type Syncope, unspecified syncope type Procedures CONSULT TO CARDIOLOGY OFFICE/OUTPATIENT [place] [facility] 60-74 MINUTES Janette Pinto MD [address] [place] [address] Referral ID Status Reason Start Date Expiration Date V isits Requested Visits Authorized [id number] Closed PCP Requested Referral 05/26/2022 05/26/2023 1 1 Reason Onset Date Comments Asthma 07/16/2022 Chart review for Breathe Well Reason Comments Contraception Reason Comments Refill Request Reason Comments Abdominal Pain X 3 days Reason Comments ED Follow-up periumbilical area, intermittently, none at this time, did hurt this am. did urine test at ER, nothing else. Didn't find anything else. still eating normally, doesn't make it worse or better, taking nexium daily since ER visit. Denies any diarrhea, last BM today. Reason Comments continuing abdominal pain Reason Comments Abdominal Pain Mid abdominal pain o n and off for 2 months. Per pt worse in the morning. Nausea. Specialty Diagnoses / Procedures Referred By Contact Referred To Contact Pediatric Gastroenterology Diagnoses Periumbilical abdominal pain Procedures CONSULT TO PEDS GASTRO OFFICE/OUTPATIENT [facility] 60-74 MINUTES Ramin Plunkett MD [address] [place] [address] Referral ID Status Reason Start Date Expiration Date V isits Requested Visits Authorized [id number] Closed PCP Requested Referral 12/24/2022 12/24/2023 1 1 Reason Comments Patient Update Reason Comments question regarding abdominal pain follo up Reason Comments Abdominal Pain Reason Comments Well Child Reason Comments Established Patient History of bradycard ia Reason Comments Procedure Follow Up Reason Comments Assessment Patient Education Specialty Diagnoses / Procedures Referred By Contac t Referred To Contact Pediatric Nutrition Diagnoses Abnormal weight loss Procedures CONSULT TO PED NUTRITION OFFICE/OUTPATIENT [facility] 60 MINUTES Carolina Jordan MD [address] [place] [address] Referral ID Status Reason Start Date Expiration Date V isits Requested Visits Authorized [id number] Closed PCP Requested Referral 12/03/2023 12/02/2024 1 1 Reason Comments Post Op Reason Comments Menstrual Problem Reason Comments nexplanon insertion Specialty Diagnoses / Procedures Referred By Contac t Referred To Contact [facility] Diagnoses Dysmenorrhea General counseling and advice for contraceptive management Procedures NEXPLANON INSERTION ETONOGESTREL IMPLANT SYSTEM INSERT DRUG IMPLANT DEVICE Brianda Block APRN.DIGITAL SPECIALIST [address] [place] [address] [address] Referral ID Status Reason Start Date Expiration Date V isits Requested Visits Authorized [id number] Closed Auto-Generate d Referral 07/06/2024 07/06/2025 1 1 Reason Comments Sore Throat ear pressure x 3 day s off and on, sore throat x 1 day Reason Comments Cough ST, bilateral ear pa in, hoarse voice x4 days Reason Comments Conjunctivitis L eye x2 days Care Teams (unrecognized sec tion and content) Road Sign Installer Relationship Specialty Start Date End Date Breanna Rodrigues MD [address] [place] [address] PCP - General 05 Road Sign Installer Relationship Specialty Start Date End Date Breanna Rodrigues MD [address] [place] [address] [place] [address] PCP - General 05 Road Sign Installer Relationship Specialty [place] [address] [place] [address] [place] [address] PCP - General 05 Road Sign Installer Relationship Specialty Start Date End Date Breanna Rodrigues MD [address] [place] [address], [place] [address] PCP - General 05 Road Sign Installer Relationship Specialty Start Date End Date Breanna Rodrigues MD [address] [place] [address] PCP - General 05 Road Sign Installer Relationship Specialty Start Date End Date Breanna Rodrigues MD [address] [place] [address] PCP - General 05 Road Sign Installer Relationship Specialty Start Date End Date Breanna Rodrigues MD [address] [place] [address], [place] [address] PCP - General 05 Road Sign Installer Relationship Specialty Start Date End Date Breanna Rodrigues MD [address] [place] [address] [place] [address] PCP - General 05 Team Status: Active Member Role Status Dates Dr. Damien Patel MD Family Provider Active Dr. Damien Patel MD Primary Care Provider Active Team Status: Inactive Member Role Status Dates Dr. Damien Patel MD Primary Care Provider Active Dr. Mark Scott MD Emergency Provider Active Road Sign Installer Relationship Specialty Start Date End Date Breanna Rodrigues MD [address] [place] [address] PCP - General 05 Road Sign Installer Relationship Specialty Start Date End Date Breanna Rodrigues MD [address] [place] [address] PCP - General 05 Road Sign Installer Relationship Specialty Start Date End Date Breanna Rodrigues MD [address] [place] [address] PCP - General 05 Road Sign Installer Relationship Specialty Start Date End Date Breanna Rodrigues MD [address] [place] [address] PCP - General 05 Team Status: Inactive Member Role Status Dates Dr. Damien Patel MD Primary Care Provider Active Dr. Dash Vazquez MD Emergency Provider Active Road Sign Installer Relationship Specialty Start Date End Date Breanna Rodrigues MD [address] [place] [address] PCP - General 05 Road Sign Installer Relationship Specialty Start Date End Date Breanna Rodrigues MD [address] [place] [address] PCP - General 05 [address] Sign Installer Relationship Specialty Start Date End Date Breanna Rodrigues MD [address] [place] [address] PCP - General 05 Road Sign Installer Relationship Specialty Start Date End Date Breanna Rodrigues MD [address] [facility] [place], [place] [address] PCP - General 05 Road Sign Installer Relationship Specialty Start Date End Date Breanna Rodrigues MD [address] [place] [address] PCP - General 05 Road Sign Installer Relationship Specialty Start Date End Date Breanna Rodrigues MD [address] [facility] [place] [address] PCP - General 05 Road Sign Installer Relationship Specialty Start Date End Date Hugo Arias, RHEOSTAT ASSEMBLER.DIGITAL SPECIALIST [address] [place] [address] PCP - General Internal Medicine 01/28/24 Road Sign Installer Relationship Specialty Start Date End Date Hugo Arias, RHEOSTAT ASSEMBLER.DIGITAL SPECIALIST [address] [place] [address] PCP - General Internal Medicine 01/28/24 Road Sign Installer Relationship Specialty Start Date End Date Hugo Arias, RHEOSTAT ASSEMBLER.DIGITAL SPECIALIST [address] [place] [address] PCP - General Internal Medicine 01/28/24 Road Sign Installer Relationship Specialty Start Date End Date Hugo Arias, RHEOSTAT ASSEMBLER.DIGITAL SPECIALIST [address] [place] [address] PCP - General Internal Medicine 01/28/24 Road Sign Installer Relationship Specialty Start Date End Date Hugo Arias, RHEOSTAT ASSEMBLER.DIGITAL SPECIALIST [address] [place] [address] PCP - General Internal Medicine 01/28/24 Road Sign Installer Relationship Specialty Start Date End Date Hugo Arias APRN.DIGITAL SPECIALIST [address] [place] [address] PCP - General Internal Medicine 01/28/24 Goals (unrecognized section and content) Goals may be documented in a n alternate sectionGoals may be documented in an alternate section FOR RECORDS PERTAINING TO PATIENTS WHO ARE OR HAVE BEEN ENROLLED IN A CHEMICAL DEPENDENCY/SUBSTANCEABUSE PROGRAM, SOME INFORMATION MAY BE OMITTED. This clinical summary was aggregated from multiple sources. Caution should be exercised in using it in the provision of clinical care. This summary normalizes information from multiple sources, and as a consequence, information in this document may materially change the coding, format and clinical context of patient data. In addition, data may be omitted in some cases. CLINICAL DECISIONS SHOULD BE BASED ON THE PRIMARY CLINICAL RECORDS. [email or web address] provides no warranty or guarantee of the accuracy or completeness of information in this document.
[2025-03-17 10:48] LABS: AST(SGOT) 20 U/L (<=31); Alanine Aminotransfer ALT/SGPT 14 U/L (<=34); Cholesterol 156 mg/dL (<=190); High Density Lipoprotein 55 mg/dL; Low Density Lipoprotein Calc. 81 mg/dL; Triglycerides 98 mg/dL; Very Low Density Lipoprotein 20 mg/dL (5-40); cholesterol:hdl ratio screen 2.83
== END | disposition home or self-care (01) ==
PROVIDERS: PCP Pediatrics; Referring Provider Physician Assistant Medical; Visit Provider Physician Assistant Medical
DX: L70.0 Acne vulgaris (principal); Z79.899 Other long term (current) drug therapy
CPT/HCPCS: 36415; 80061; 84450; 84460